=== PATIENT | male | born 1995 | race African-American/Black ===

== ENCOUNTER 2017-07-14 20:08 | Inpatient (IN) | payer MEDICAID, OTHER ==
[~2017-07-14] VITALS: Ht 134.6 cm; Wt 60.0 kg
[2017-07-14] MEDS ORDERED: SODIUM CHLORIDE 0.9% 1L BAG IV* STA (20:10)
[2017-07-14] MEDS ORDERED: ACETAMINOPHEN 650MG/20.3ML CUP PEG STA (20:10)
[2017-07-14] MEDS ORDERED: CEFEPIME 2GM/50 ML (PMX) 50 ML IVPB STA (20:10)
[2017-07-14] MEDS ORDERED: VANCOMYCIN 1 GM (PMX) 250 ML IVPB ONE (20:30)
[2017-07-14 20:55] VITALS: Ht 134.6 cm; Wt 60.0 kg
--- NOTE | 2017-07-14 21:32 | ERD ---
ER Documentation Chief Complaint Chief Complaint c/o SB and fever HPI This is a 22-year-old male with a history of chronic encephalopathy, chronic respiratory failure with a trach who presents from halfway facility. The reason that he was transferred is because the halfway facility states that when they usually suctioned the patient he has a desaturation. However, today when a suction and he did not have any desaturation. For this reason they became concerned and sent the patient to the emergency room. Further history is very limited. Patient is nonverbal. ROS Patient nonverbal PMhx/Soc As noted in HPI Medical and Surgical Hx: Unable to obtain Hx Alcohol Use: No Hx Substance Use: No Hx Tobacco Use: No Smoking Status: Never smoker FmHx Family History: No diabetes Physical Exam Vitals Vital Signs Date Time Temp Pulse Resp B/P Pulse Ox O2 Delivery O2 Flow Rate FiO2 07/14/17 21:55 97 20 112/64 99 Trach Collar 07/14/17 20:55 97.8 65 20 112/65 100 07/14/17 20:53 10 Physical Exam General: No significant distress, obvious secretions from trach Head: Normocephalic, atraumatic. Eyes: Pupils equally reactive, EOM intact ENT: Moist mucous membranes Neck: Supple, no lymphadenopathy, secretions from trach Respiratory: Rhonchorous, no distress Cardiovascular: RRR, no murmurs, rubs, or gallops Abdominal: Soft, non-tender, non-distended, no peritoneal signs of a G-tube in position : Deferred MSK: Limited movement of all 4 extremities, no bony abnormalities Neurologic: Limited exam, and encephalopathic, limited movement of all 4 extremities Skin: No rash, no significant breakdown Psych: Unable to assess Result Diagram: 07/14/17201907/14/172019 Results 24 hrs Laboratory Tests Test 07/14/17 20:20 07/14/17 21:24 White Blood Count 6.010^3/ul Red Blood Count 5.6010^6/ul Hemoglobin 14.5g/dl Hematocrit 49.3% Mean Corpuscular Volume 88.0fl Mean Corpuscular Hemoglobin 25.9pg Mean Corpuscular Hemoglobin Concent 29.4g/dl Red Cell Distribution Width 15.3% Platelet Count 22871^3/UL Mean Platelet Volume 12.5fl Neutrophils % 29.9% Lymphocytes % 52.5% Monocytes % 13.5% Eosinophils % 3.2% Basophils % 0.7% Nucleated Red Blood Cells % 0.0/100WBC Neutrophils # 1.810^3/ul Lymphocytes # 3.210^3/ul Monocytes # 0.810^3/ul Eosinophils # 0.210^3/ul Basophils # 0.010^3/ul Nucleated Red Blood Cells # 0.010^3/ul Prothrombin Time 14.1Sec Prothrombin Time Ratio 1.1 INR International Normalized Ratio 1.09 Activated Partial Thromboplast Time 30.7Sec Sodium Level 150mmol/L Potassium Level 5.1mmol/L Chloride Level 106mmol/L Carbon Dioxide Level 30mmol/L Anion Gap 19 Blood Urea Nitrogen 17mg/dl Creatinine 0.52mg/dl Glucose Level 82mg/dl Lactic Acid Level 1.6mmol/L Calcium Level 9.3mg/dl Total Bilirubin 0.3mg/dl Direct Bilirubin 0.00mg/dl Indirect Bilirubin 0.3mg/dl Aspartate Amino Transf (AST/SGOT) 40IU/L Alanine Aminotransferase (ALT/SGPT) 45IU/L Alkaline Phosphatase 82IU/L Troponin I < 0.012ng/ml Total Protein 7.9g/dl Albumin 4.3g/dl Globulin 3.60g/dl Albumin/Globulin Ratio 1.19 Blood Gas Specimen Source Blood arterial Arterial Blood Date Drawn 07/14/2017 9:34:21 PM Arterial Blood pH (Temp corrected) 7.284 Arterial Blood pCO2 (Temp correct) 60.6mmhg Arterial Blood pO2 (Temp corrected) 160.2mmHG Arterial Blood HCO3 28.1mmol/L Arterial Blood Base Excess 0mmol/L Arterial Blood Oxygen Saturation 98.8mmHG Thuan Test ACCEPTAB Arterial Blood Gas Puncture Site Right Radial Arterial Blood Carboxyhemoglobin 0.3% Arterial Blood Methemoglobin 0.5% Blood Gas A-a O2 Differential 55.3mmHg Oxyhemoglobin Percent 98.0% Total Hemoglobin 14.5g/dl Blood Gas Temperature 37.0C Blood Gas Modality TRACH COLLAR FiO2 40.0% Blood Gas Critical Value Read Back Janina ASH Blood Gas Notified Whom BR Blood Gas Notified Time 07/14/2017 9:37:55 PM Current Medications Medications (Trade) Dose Ordered Sig/Dona Route PRN Reason Start Time Stop Time Status Last Admin Dose Admin Sodium Chloride (NS) 2,170 ml BOLUS OVER 2 HOURS STAT IV* 07/14/17 20:10 07/14/17 20:13 DC 07/14/17 21:07 Acetaminophen 650 mg 650 mg ONCE STAT PEG 07/14/17 20:10 07/14/17 20:13 DC Cefepime HCl 50 ml @ 100 mls/hr ONCE STAT IVPB 07/14/17 20:10 07/14/17 20:39 DC 07/14/17 21:07 Vancomycin HCl (Vancocin) 250 ml @ 125 mls/hr ONCE ONCE IVPB 07/14/17 20:30 07/14/17 22:29 07/14/17 20:30 Ondansetron HCl (Zofran Inj) 4 mg ER BRIDGE PRN IV NAUSEA AND/OR VOMITING 07/14/17 22:00 07/15/17 21:59 Acetaminophen (Tylenol Tab) 650 mg ER BRIDGE PRN PO MILD PAIN/FEVER 07/14/17 22:00 07/15/17 21:59 Procedures/MDM EKG, MONITORS, & DIAGNOSTIC IMAGING: EKG: I reviewed and interpreted a 12-lead EKG. Rhythm: Normal sinus rhythm Ectopy: None Intervals: No abnormalities ST segments: No elevations or depressions T waves: No contiguous inversions Chest x-ray: I reviewed and interpreted a 1 view of the chest Mediastinum: No enlargement Cardiac silhouette: No cardiomegaly Airspace: Interstitial process right greater than left concerning for pneumonia , trach in good position Bones: No evidence of fracture Procedure: Peripheral IV Insertion: Indication: Difficult IV access Location: Left upper extremity Attempts: 1 Angiocath-type: 18 Sterile procedure was used to insert a peripheral IV. Indication, location and Angiocath-type are noted above. Ultrasound guidance was used to assist in the insertion of the Angiocath. Return of dark nonpulsatile blood was obtained, normal saline flushed through the Angiocath which was then secured to the skin. The patient tolerated the procedure well without complications. Emergency Bedside Ultrasound: Indication: Peripheral IV insertion Probe Type: Linear Findings: Dynamic ultrasound utilized with compression technique with both linear and horizontal views. The patient tolerated the procedure well and there were no complications. Tracheostomy change: Indication is the fact that the patient requires ventilator and has an uncuffed trach. The family was consented prior to procedure. A sterile procedure was observed. The bougie I was able to thread the bougie through the present trach. The trach was removed intact and a new trach was inserted over the bougie however using a 6.0 Shiley we were unable to pass the trach through the stoma. The procedure was aborted and the prior 6.0 Bivona was replaced without difficulty. The patient had no desaturations, small amount of bleeding that resolved without intervention. LAB INTERPRETATION: No significant leukocytosis and normal lactic acid, hypercarbia on ABG concerning for respiratory acidosis. Hypernatremia MEDICAL DECISION MAKING: The patient presents for evaluation after he did not desaturate after suctioning. It is unclear what exactly was transferred however the patient does have significant secretions from his trach that will require suctioning and close evaluation. The patient is obviously at significant risk for healthcare associated pneumonia and will require sepsis screening and reevaluation. I will attempt an ABG. ER COURSE: Shortly after suctioning the patient has been resting comfortably without evidence of vital sign abnormality or desaturation. However, the patient does have evidence of possible pneumonia on chest x-ray. The patient is slight hypercapnia. I believe close observation and inpatient hospitalization would be appropriate. The patient was given 30 cc/kg bolus of saline, blood cultures were taken and the patient was given vancomycin and cefepime. Based on the patient's arterial blood gas the patient appears to be retaining and has evidence of respiratory acidosis. For this reason the patient be placed on a ventilator. The patient requires changing of his trach given that it is uncuffed.. We were unable to replace the patient's uncuffed trach. The respiratory therapist are looking for the appropriate sized trach however at this point we will attempt ventilation despite coffless trach, further eval by pulm/ent may be necessary during hospitalization. No indication for endotracheal intubation. He is still stable for telemetry. Hyponatremia suggestive of mild dehydration. I kept the patient and/or family informed of laboratory and diagnostic imaging results throughout the emergency room course. DISPOSITION PLAN: Telemetry admission CONSULTATION: Accepting care team and consultations: I discussed the current laboratory data, diagnostic imaging and emergency care provided. Admitting team: Dr. Judd Admitting team indication: Insurance directed Departure Diagnosis: Primary Impression: Healthcare-associated pneumonia Additional Impressions: Chronic respiratory failure Respiratory failure complication: unspecified whether with hypoxia or hypercapnia Qualified Code: J96.10 - Chronic respiratory failure, unspecified whether with hypoxia or hypercapnia Encephalopathy chronic Hypernatremia Condition: Stable SHARON ASH MD Jul 14, 2017 21:32
--- NOTE | 2017-07-14 21:33 | RADRPT ---
PROCEDURE: XR Chest. CLINICAL INDICATION: Possible sepsis. TECHNIQUE: Single frontal view of the chest. COMPARISON: None. FINDINGS: Tracheostomy tube at midline. Cardiomegaly. Left mid lung and lung base atelectasis versus airspace disease. The lungs are otherwi se clear. No signs of pleural fluid or pneumothorax are seen. The osseous structures and soft tissue s are unremarkable. IMPRESSION: Left mid lung and lung base atelectasis versus airspace disease. RPTAT: [facility] Physician Shauna Date Time Electronically viewed and signed by Physician Shauna on 07/14/2017 21:32 RS/
[2017-07-14] MEDS ORDERED: ACETAMINOPHEN 325 MG TAB PO PRN (22:00)
[2017-07-14] MEDS ORDERED: ONDANSETRON 4 MG INJ IV PRN (22:00)
[2017-07-14] MEDS ORDERED: PROPOFOL 100 ML IV STA (22:09)
[2017-07-14] MEDS ORDERED: MIDAZOLAM 1 MG/ML 2 ML INJ IV ONE (22:30)
[2017-07-14] MEDS ORDERED: ALBUTEROL/IPRATROPIUM (NEB) 3 ML AMP ONE (22:36)
--- NOTE | 2017-07-14 23:06 | RADRPT ---
PROCEDURE: XR Chest. CLINICAL INDICATION: Tracheostomy change. TECHNIQUE: AP view of the chest was obtained. COMPARISON: 07/14/2017 FINDINGS: The cardiomediastinal silhouette is within normal limits. There is a tracheostomy tube in place. The lungs are again poorly expanded with expected bibasilar subsegmental atelectasis. No focal consolid ation is seen. No signs of pleural fluid or pneumothorax are seen. The osseous structures and soft t issues are unremarkable. IMPRESSION: 1. No evidence for active cardiopulmonary disease. 2. Interval change of tracheostomy. 3. Stable poor lung expansion with expected bibasilar subsegmental atelectasis. No focal consolidat ion is seen. RPTAT: [facility]AS .Walter Rea MD, Date Time Electronically viewed and signed by .Walter Rea MD, on 07/14/2017 23:06 .S/
[2017-07-14] MEDS ORDERED: ALBUTEROL/IPRATROPIUM (NEB) 3 ML AMP HHN STA (23:15)
[2017-07-15] VITALS (25 sets, daily range): BP systolic 77–117; BP diastolic 34–61; PULSE 45–100; RESP 16–24; TEMP 99
[2017-07-15] MEDS ORDERED: ACETAMINOPHEN 325 MG TAB PO PRN (06:00)
[2017-07-15] MEDS ORDERED: NACL 0.9% 3 ML SYG IV SCH (06:00)
[2017-07-15] MEDS ORDERED: ONDANSETRON 4 MG INJ IV PRN (06:00)
--- NOTE | 2017-07-15 07:16 | HP ---
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 patient has been bleeding through his tracheostomy since tube was replaced. PLAN -Oxygen saturation now has normalized since his trach tube was replaced in the ER, however about 200 cc of blood has been suctioned through his trach over the past 7 hours or so. -He will be admitted for close observation. Will place pulmonary consult. If bleeding continues, will place surgical consult and obtain additional imaging -Continue frequent suctioning -Continue vent support -D5W for correction of hypernatremia HPI/ROS Admit Date/Time Admit Date/Time Hx of Present Illness This is a 21-year-old male with history of chronic encephalopathy, chronic trach /vent dependent respiratory failure who was sent from a long term facility for hypoxia. Information is obtained from the mother who was at the bedside and from the ER physician and chart review. When he presented to the ER, his trach tube was replaced with normalization of oxygen saturation. He has however been bleeding through his trach since his tracheostomy tube was replaced. He had about a 200 cc of blood that was suctioned over a period of 7 hours. According to his mother, he fell down when he was 4 years old and since then has been in a chronic vegetative state and has been trach/vent dependent. Chest x-ray showed left lower lung atelectasis versus airspace disease. PMH/Family/Social Social History Smoking Status: Never smoker Exam/Review of Systems Vital Signs Vitals Vital Signs Date Time Temp Pulse Resp B/P Pulse Ox O2 Delivery O2 Flow Rate FiO2 07/15/17 05:28 61 18 98 40 07/15/17 04:31 98.2 98/45 Mechanical Ventilator 07/14/17 20:53 10 Exam Constitutional: non-verbal, other (Trach to vent. In a chronic vegetative state) Head: atraumatic, normocephalic Neck: other (Trach tube with bleed when suctioned) Respiratory: diminished breath sounds Cardiovascular: nl pulses, regular rate and rhythm Gastrointestinal: other, soft Musculoskeletal: other (Deformity with contracture of extremities) Labs Result Diagram: 07/14/17201907/14/172019 Medications Medications Current Medications Lorazepam (Ativan) 0.5 mg Q6H PRN IV ANXIETY; Start 07/15/17 at 06:00; Status UNV Ondansetron HCl (Zofran Inj) 4 mg Q6H PRN IV NAUSEA AND/OR VOMITING; Start at 06:00; Status UNV Acetaminophen (Tylenol Tab) 650 mg Q6H PRN PO PAIN LEVEL 1-3 OR FEVER; Start 07/15/17 at 06:00; Status UNV Morphine Sulfate (morphine) 2 mg Q4H PRN IV PAIN LEVEL 7-10; Start 07/15/17 at 06:00; Status UNV Famotidine (Pepcid Iv) 20 mg Q12 IV ; Start 07/15/17 at 09:00; Status UNV Heparin Sodium (Porcine) (Heparin (5000 Units/0.5 ml)) 5,000 unit Q12 SC ; Start 07/15/17 at 09:00; Status UNV LIBRA GARCIA MD Jul 15, 2017 07:16
[2017-07-15] MEDS: DEXTROSE 5% 1,000 ML IV SCH ×2 (08:07→18:10)
[2017-07-15] MEDS: FAMOTIDINE 20 MG INJ IV SCH ×3 (08:24→22:23)
[2017-07-15] MEDS ORDERED: ESOM20CA GTB (08:55)
[2017-07-15] MEDS ORDERED: FOLI1TAB7 GTB (08:55)
[2017-07-15] MEDS ORDERED: VLP250480 GTB (08:56)
[2017-07-15] MEDS ORDERED: ROB1 GTB (08:57)
[2017-07-15] MEDS ORDERED: AMIN30LI GTB (08:58)
[2017-07-15] MEDS ORDERED: HEPARIN 5,000 UNIT/0.5 ML VIAL SC SCH (09:00)
[2017-07-15] MEDS ORDERED: NEO/3.5O BOTH EYES (09:01)
[2017-07-15] MEDS ORDERED: POLY15DR25 BOTH EYES (09:03)
[2017-07-15] MEDS ORDERED: POLY17PO6 PO (09:03)
[2017-07-15] MEDS ORDERED: DIAZ2TAB3 GTB (09:04)
[2017-07-15] MEDS ORDERED: NASO17 NASAL (09:04)
[2017-07-15] MEDS ORDERED: LACR35O BOTH EYES (09:05)
[2017-07-15] MEDS ORDERED: ERYT500 GTB (09:07)
[2017-07-15] MEDS ORDERED: KEP100S GTB (09:07)
[2017-07-15] MEDS ORDERED: SODI1TAB42 PO (09:08)
[2017-07-15] MEDS ORDERED: BACL10TA GTB (09:09)
[2017-07-15] MEDS ORDERED: CATTTS1 TD (09:10)
[2017-07-15] MEDS ORDERED: MONT10TA21 GTB (09:10)
[2017-07-15] MEDS ORDERED: ERGO2000 GTB (09:11)
--- NOTE | 2017-07-15 13:44 | CONS ---
Date/Time of Note Date/Time of Note DATE: 07/15/17 TIME: 13:39 Assessment/Plan Assessment/Plan Problems: (1) Chronic respiratory failure Status: Acute Comment: Noted. He has had his trach replaced so that he can actually have regular mechanical ventilation. He is presently being ventilated without issue. Pulmonary will be seeing this young man in consultation. From a CCS standpoint admission is fully appropriate and necessary and he is actually in the intensive care unit Qualifiers: Qualified Code: J96.10 - Chronic respiratory failure, unspecified whether with hypoxia or hypercapnia (2) Healthcare-associated pneumonia Status: Acute Comment: He is on treatment and has been cultured. Please note that the family declines for him to have a Cortes catheter or in and out catheter for urine studies. (3) Encephalopathy chronic Status: Acute Comment: Chronic vegetative state noted. Extremely involved family. Consultation Date/Type/Reason Admit Date/Time July 15, 2017 Date of Consultation: Jul 15, 2017 Type of Consultation: CCS Reason for Consultation Under 22-year-old patient admitted to the hospital documentation for CCS need for admission Referring Provider: LIBRA GARCIA MD Hx of Present Illness 21-year-old -[place] male from [facility]. 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 By report this is been present for roughly 17 years. He has a family that is actively involved. He was transported to this facility after some difficulty with increasing respiratory rate and thickening of secretions. He may have had a fall but that is not documented well, prior to presenting to this facility. His tracheostomy needed to be replaced so that he could be ventilated. Subjective hx not possible: pt non-verbal Past Medical History Medical History: other (Chronic vegetative state; tracheostomy status) Past Surgical History Past Surgical Hx: other (Status post tracheostomy) Family History Significant Family History: no pertinent family hx Social History Alcohol Use: none Smoking Status: Never smoker Drug Use: none Exam/Review of Systems Vital Signs Vitals Vital Signs Date Time Temp Pulse Resp B/P Pulse Ox O2 Delivery O2 Flow Rate FiO2 07/15/17 13:00 57 18 99 40 07/15/17 11:08 90/47 Mechanical Ventilator 07/15/17 06:30 99.0 07/14/17 20:53 10 Exam Constitutional: non-verbal Results Nonverbal. Please see admission H&P Result Diagram: 07/15/17 0800 07/15/17 0800 Results 24 hrs Laboratory Tests Test 07/14/17 20:20 07/14/17 21:24 07/14/17 22:50 07/14/17 23:21 White Blood Count 6.0 Red Blood Count 5.60 Hemoglobin 14.5 Hematocrit 49.3 Mean Corpuscular Volume 88.0 Mean Corpuscular Hemoglobin 25.9 L Mean Corpuscular Hemoglobin Concent 29.4 L Red Cell Distribution Width 15.3 H Platelet Count 198 Mean Platelet Volume 12.5 H Neutrophils % 29.9 L Lymphocytes % 52.5 Monocytes % 13.5 H Eosinophils % 3.2 Basophils % 0.7 Nucleated Red Blood Cells % 0.0 Neutrophils # 1.8 Lymphocytes # 3.2 H Monocytes # 0.8 Eosinophils # 0.2 Basophils # 0.0 Nucleated Red Blood Cells # 0.0 Prothrombin Time 14.1 Prothrombin Time Ratio 1.1 INR International Normalized Ratio 1.09 Activated Partial Thromboplast Time 30.7 Sodium Level 150 H Potassium Level 5.1 Chloride Level 106 Carbon Dioxide Level 30 Anion Gap 19 H Blood Urea Nitrogen 17 Creatinine 0.52 L Glucose Level 82 Lactic Acid Level 1.6 1.4 Calcium Level 9.3 Total Bilirubin 0.3 Direct Bilirubin 0.00 Indirect Bilirubin 0.3 Aspartate Amino Transf (AST/SGOT) 40 Alanine Aminotransferase (ALT/SGPT) 45 Alkaline Phosphatase 82 Troponin I < 0.012 Total Protein 7.9 Albumin 4.3 Globulin 3.60 H Albumin/Globulin Ratio 1.19 Blood Gas Specimen Source Blood arterial Blood arterial Arterial Blood Date Drawn 07/14/2017 9:34:21 PM 07/14/2017 11:31:34 PM Arterial Blood pH (Temp corrected) 7.284 *L 7.275 *L Arterial Blood pCO2 (Temp correct) 60.6 H 58.0 H Arterial Blood pO2 (Temp corrected) 160.2 H 97.3 Arterial Blood HCO3 28.1 H 26.3 H Arterial Blood Base Excess 0 -1.7 Arterial Blood Oxygen Saturation 98.8 H 96.9 Thuan Test ACCEPTAB ACCEPTAB Arterial Blood Gas Puncture Site Right Radial Right Radial Arterial Blood Carboxyhemoglobin 0.3 0.3 Arterial Blood Methemoglobin 0.5 0.5 Blood Gas A-a O2 Differential 55.3 H 121.2 H Oxyhemoglobin Percent 98.0 96.1 Total Hemoglobin 14.5 14.9 Blood Gas Temperature 37.0 37.0 Blood Gas Modality TRACH COLLAR VENT - AC FiO2 40.0 40.0 Blood Gas Critical Value Read Back Janina ASH RN Blood Gas Notified Whom BR BYRON Blood Gas Notified Time 07/14/2017 9:37:55 PM 07/14/2017 11:42:28 PM Blood Gas Respiration Rate 15.0 Blood Gas Actual Respiration Rate 18 Blood Gas Tidal Volume 350.0 Blood Gas Low PEEP Setting 5.0 Blood Gas Inspiratory Pressure 35.0 Test 07/15/17 08:00 White Blood Count 6.3 Red Blood Count 4.96 Hemoglobin 13.3 L Hematocrit 43.3 Mean Corpuscular Volume 87.3 Mean Corpuscular Hemoglobin 26.8 L Mean Corpuscular Hemoglobin Concent 30.7 L Red Cell Distribution Width 15.0 H Platelet Count 163 Mean Platelet Volume 12.0 H Neutrophils % 61.6 Lymphocytes % 23.7 Monocytes % 13.2 H Eosinophils % 1.0 Basophils % 0.3 Nucleated Red Blood Cells % 0.0 Neutrophils # 3.9 Lymphocytes # 1.5 Monocytes # 0.8 Eosinophils # 0.1 Basophils # 0.0 Nucleated Red Blood Cells # 0.0 Sodium Level 146 H Potassium Level 4.1 Chloride Level 112 H Carbon Dioxide Level 29 Anion Gap 9 # Blood Urea Nitrogen 13 Creatinine 0.50 L Glucose Level 88 Calcium Level 8.5 Total Bilirubin 0.4 Direct Bilirubin 0.00 Indirect Bilirubin 0.4 Aspartate Amino Transf (AST/SGOT) 33 Alanine Aminotransferase (ALT/SGPT) 40 Alkaline Phosphatase 64 Total Protein 6.6 # Albumin 2.9 #L Globulin 3.70 H Albumin/Globulin Ratio 0.78 Medications Medications Current Medications Lorazepam (Ativan) 0.5 mg Q6H PRN IV ANXIETY; Start 07/15/17 at 06:00 Ondansetron HCl (Zofran Inj) 4 mg Q6H PRN IV NAUSEA AND/OR VOMITING; Start at 06:00 Acetaminophen (Tylenol Tab) 650 mg Q6H PRN PO PAIN LEVEL 1-3 OR FEVER; Start 07/15/17 at 06:00 Morphine Sulfate (morphine) 2 mg Q4H PRN IV PAIN LEVEL 7-10; Start 07/15/17 at 06:00 Famotidine 20 mg 20 mg Q12 IV Last administered on 07/15/17 08:24; Admin Dose 20 MG; Start 07/15/17 at 09:00 Dextrose (D5W) 1,000 ml @ 100 mls/hr Q10H IV Last administered on 07/15/17 08:07; Admin Dose 100 MLS/HR; Start 07/15/17 at 07:30 DUONG CHING MD Jul 15, 2017 13:43
[2017-07-15] MEDS ORDERED: SOD CHLORIDE 0.9% 500 ML IV ONE (14:30)
--- NOTE | 2017-07-15 17:20 | PN ---
Date/Time of Note Date/Time of Note DATE: 07/15/17 TIME: 17:12 Assessment/Plan VTE Prophylaxis VTE Prophylaxis Intervention: SCD's Lines/Catheters IV Catheter Type (from Nrs): Peripheral IV Urinary Cath still in place: No Assessment/Plan Assessment/Plan 1. Acute hypercapnic respiratory failure - Per mother patient was admitted to [facility] 1 month ago for pneumonia and questions why he is presently at [facility] - Currently on ventilator and Pulmonology consulted - ABG shows elevated PCO2 and will recheck in am - continue suctioning 2. Hypernatremia - Most likely secondary to dehydration - improving on D5W 3. Hypotension - SBP 70s this am and improvement after IVF bolus - Will continue to monitor and bolus as needed 4. Failure to thrive - PEG in place and will restart feeds 5. Chronic vegetative state 6. Disposition - Continue monitoring in ICU and will work with CM for transfer to [facility] at families' request >40 minutes of critical care time was spent with patient. Family at bedside and questions answered. All imaging and labs reviewed. Subjective 24 Hr Interval Summary Free Text/Dictation Patient remains on the ventilator. BP was low this am and given fluids which improved his pressure. Mother at bedside and father on phone, both requesting transfer to [facility] given patient was recently admitted there for pneumonia a month ago. Exam/Review of Systems Vital Signs Vitals Vital Signs Date Time Temp Pulse Resp B/P Pulse Ox O2 Delivery O2 Flow Rate FiO2 07/15/17 17:00 55 18 81/39 99 Mechanical Ventilator 07/15/17 16:00 99.4 07/15/17 15:09 40 07/14/17 20:53 10 Exam Constitutional: non-verbal, Trach connected to vent. In a chronic vegetative state. Head: atraumatic, normocephalic Neck: trach in place, no blood appreciated at site of insertion Respiratory: diminished breath sounds, no wheezing Cardiovascular: nl pulses, regular rate and rhythm Gastrointestinal: soft, nondistended, BS present Musculoskeletal: Deformity with contracture of extremities Results Result Diagram: 07/15/17 0800 07/15/17 0800 Results 24 hrs Laboratory Tests Test 07/14/17 20:20 07/14/17 21:24 07/14/17 22:50 07/14/17 23:21 White Blood Count 6.0 Red Blood Count 5.60 Hemoglobin 14.5 Hematocrit 49.3 Mean Corpuscular Volume 88.0 Mean Corpuscular Hemoglobin 25.9 L Mean Corpuscular Hemoglobin Concent 29.4 L Red Cell Distribution Width 15.3 H Platelet Count 198 Mean Platelet Volume 12.5 H Neutrophils % 29.9 L Lymphocytes % 52.5 Monocytes % 13.5 H Eosinophils % 3.2 Basophils % 0.7 Nucleated Red Blood Cells % 0.0 Neutrophils # 1.8 Lymphocytes # 3.2 H Monocytes # 0.8 Eosinophils # 0.2 Basophils # 0.0 Nucleated Red Blood Cells # 0.0 Prothrombin Time 14.1 Prothrombin Time Ratio 1.1 INR International Normalized Ratio 1.09 Activated Partial Thromboplast Time 30.7 Sodium Level 150 H Potassium Level 5.1 Chloride Level 106 Carbon Dioxide Level 30 Anion Gap 19 H Blood Urea Nitrogen 17 Creatinine 0.52 L Glucose Level 82 Lactic Acid Level 1.6 1.4 Calcium Level 9.3 Total Bilirubin 0.3 Direct Bilirubin 0.00 Indirect Bilirubin 0.3 Aspartate Amino Transf (AST/SGOT) 40 Alanine Aminotransferase (ALT/SGPT) 45 Alkaline Phosphatase 82 Troponin I < 0.012 Total Protein 7.9 Albumin 4.3 Globulin 3.60 H Albumin/Globulin Ratio 1.19 Blood Gas Specimen Source Blood arterial Blood arterial Arterial Blood Date Drawn 07/14/2017 9:34:21 PM 07/14/2017 11:31:34 PM Arterial Blood pH (Temp corrected) 7.284 *L 7.275 *L Arterial Blood pCO2 (Temp correct) 60.6 H 58.0 H Arterial Blood pO2 (Temp corrected) 160.2 H 97.3 Arterial Blood HCO3 28.1 H 26.3 H Arterial Blood Base Excess 0 -1.7 Arterial Blood Oxygen Saturation 98.8 H 96.9 Thuan Test ACCEPTAB ACCEPTAB Arterial Blood Gas Puncture Site Right Radial Right Radial Arterial Blood Carboxyhemoglobin 0.3 0.3 Arterial Blood Methemoglobin 0.5 0.5 Blood Gas A-a O2 Differential 55.3 H 121.2 H Oxyhemoglobin Percent 98.0 96.1 Total Hemoglobin 14.5 14.9 Blood Gas Temperature 37.0 37.0 Blood Gas Modality TRACH COLLAR VENT - AC FiO2 40.0 40.0 Blood Gas Critical Value Read Back Janina ASH RN Blood Gas Notified Whom BYRON MATTHEWS Blood Gas Notified Time 07/14/2017 9:37:55 PM 07/14/2017 11:42:28 PM Blood Gas Respiration Rate 15.0 Blood Gas Actual Respiration Rate 18 Blood Gas Tidal Volume 350.0 Blood Gas Low PEEP Setting 5.0 Blood Gas Inspiratory Pressure 35.0 Test 07/15/17 08:00 White Blood Count 6.3 Red Blood Count 4.96 Hemoglobin 13.3 L Hematocrit 43.3 Mean Corpuscular Volume 87.3 Mean Corpuscular Hemoglobin 26.8 L Mean Corpuscular Hemoglobin Concent 30.7 L Red Cell Distribution Width 15.0 H Platelet Count 163 Mean Platelet Volume 12.0 H Neutrophils % 61.6 Lymphocytes % 23.7 Monocytes % 13.2 H Eosinophils % 1.0 Basophils % 0.3 Nucleated Red Blood Cells % 0.0 Neutrophils # 3.9 Lymphocytes # 1.5 Monocytes # 0.8 Eosinophils # 0.1 Basophils # 0.0 Nucleated Red Blood Cells # 0.0 Sodium Level 146 H Potassium Level 4.1 Chloride Level 112 H Carbon Dioxide Level 29 Anion Gap 9 # Blood Urea Nitrogen 13 Creatinine 0.50 L Glucose Level 88 Calcium Level 8.5 Total Bilirubin 0.4 Direct Bilirubin 0.00 Indirect Bilirubin 0.4 Aspartate Amino Transf (AST/SGOT) 33 Alanine Aminotransferase (ALT/SGPT) 40 Alkaline Phosphatase 64 Total Protein 6.6 # Albumin 2.9 #L Globulin 3.70 H Albumin/Globulin Ratio 0.78 Medications Medications Current Medications Lorazepam (Ativan) 0.5 mg Q6H PRN IV ANXIETY; Start 07/15/17 at 06:00 Ondansetron HCl (Zofran Inj) 4 mg Q6H PRN IV NAUSEA AND/OR VOMITING; Start at 06:00 Acetaminophen (Tylenol Tab) 650 mg Q6H PRN PO PAIN LEVEL 1-3 OR FEVER; Start 07/15/17 at 06:00 Morphine Sulfate (morphine) 2 mg Q4H PRN IV PAIN LEVEL 7-10; Start 07/15/17 at 06:00 Famotidine 20 mg 20 mg Q12 IV Last administered on 07/15/17 08:24; Admin Dose 20 MG; Start 07/15/17 at 09:00 Dextrose (D5W) 1,000 ml @ 100 mls/hr Q10H IV Last administered on 07/15/17 08:07; Admin Dose 100 MLS/HR; Start 07/15/17 at 07:30 JIM NANCE MD Jul 15, 2017 17:20
[2017-07-16] VITALS (25 sets, daily range): BP systolic 108–129; BP diastolic 55–71; PULSE 69–196; RESP 18–35
[2017-07-16] MEDS ORDERED: FUROSEMIDE 40 MG INJ IV STA (01:01)
[2017-07-16] MEDS: morphine 2 MG INJ IV PRN ×3 (01:14→19:39)
[2017-07-16] MEDS ORDERED: ACETAMINOPHEN 325 MG TAB PEG PRN (03:00)
[2017-07-16] MEDS: DEXTROSE 5% 1,000 ML IV SCH ×2 (03:30→09:05)
[2017-07-16] MEDS ORDERED: ACETAMINOPHEN 650MG/20.3ML CUP PEG PRN (04:30)
[2017-07-16] MEDS: LORAZEPAM 2 MG INJ IV PRN (04:57)
--- NOTE | 2017-07-16 08:55 | RADRPT ---
PROCEDURE: XR Chest. CLINICAL INDICATION: Fever TECHNIQUE: Single AP portable chest. COMPARISON: 07/14/2017 Chest x-ray FINDINGS: The cardiomediastinal silhouette is within normal limits of size. Again noted is hypoinflation cardi ovascular structures. Increased pulmonary vascularity is noted with bibasilar subsegmental atelectas is left greater than right. No focal consolidation or pleural effusion. Tracheostomy tube in stable position. The lungs are clear without pleural effusion or focal consolidation. No pneumothorax. Th e osseous structures and soft tissues are unremarkable. IMPRESSION: 1. Hypoventilatory changes with prominence of the interstitial markings. No focal consolidation or p leural effusion. Superimposed infectious process cannot be excluded. 2. Stable position of tracheostomy tube . RPTAT:AAJJ Physician Zeynep Date Time Electronically viewed and signed by Physician Zeynep on 07/16/2017 08:55 [place]/
[2017-07-16] MEDS: FAMOTIDINE 20 MG INJ IV SCH (09:00)
--- NOTE | 2017-07-16 11:59 | CONS ---
Date/Time of Note Date/Time of Note DATE: 07/16/17 TIME: 11:56 Assessment/Plan Assessment/Plan Additional Assessment/Plan Chest x-ray was reviewed which is essentially unremarkable. Ventilator setting; AC of 18, tidal volume 350, PEEP of 5, 100% FiO2. Assessment and recommendations; 1. Patient admitted for tracheostomy tube dislodgment with replacement with stable clinical status. 2. Persistent vegetative state due to severe anoxic brain injury. Continue current treatment. FiO2 has been dropped down to 30%. Consultation Date/Type/Reason Admit Date/Time July 15, 2017 Date of Consultation: Jul 16, 2017 Type of Consultation: Pulmonary Reason for Consultation Pulmonary consultation requested for evaluation of chronic respiratory failure. Next History of presenting illness; patient is a 21-year-old male who was admitted yesterday sent over from retirement after tracheostomy tube dislodgment with ensuing hypoxemia. Extremity was replaced in the ER and because of bleeding from the insertion site patient was admitted for closer observation. Patient has a long-standing history of chronic severe anoxic encephalopathy since age 4 and is in a persistent vegetative state since then. History was obtained from medical records. Past medical history; 1. Patient with history of fall at age 4 resulting in severe anoxic brain injury. 2. History of tracheostomy and G-tube placement. Medications; reviewed. Allergies; famotidine. Social history; noncontributory. Family history; patient has a very supportive mother. Review systems; unable to be obtained. General exam; young male, on ventilator via tracheostomy, unresponsive, currently in no distress. Past Medical History Medical History: other (Chronic vegetative state; tracheostomy status) Past Surgical History Past Surgical Hx: other (Status post tracheostomy) Social History Alcohol Use: none Smoking Status: Never smoker Drug Use: none Exam/Review of Systems Vital Signs Vitals Vital Signs Date Time Temp Pulse Resp B/P Pulse Ox O2 Delivery O2 Flow Rate FiO2 07/16/17 11:10 64 18 100 95 07/16/17 07:44 99.7 111/55 07/15/17 18:00 Mechanical Ventilator 07/14/17 20:53 10 Intake and Output 07/15/17 07/15/17 07/16/17 14:59 22:59 06:59 Intake Total 200 ml 360 ml Balance 200 ml 360 ml Exam HEENT exam; supple neck, no JVD. No lymphadenopathy. Midline trachea. No thyromegaly. Tracheostomy in place. There is mild bleeding seen around the insertion site. Patient has fair dentition. Neck Chest exam; clear to auscultation. S1-S2 audible, no murmurs. Regular rhythm. Abdomen exam; soft, G-tube in place. No organomegaly. Bowel sounds audible. Extremity exam; no peripheral edema. There is severe muscle loss involving the entire body with contractures. ONLINE COMMUNICATIONS SPECIALIST exam; patient remains unresponsive. Results Result Diagram: 07/16/17 1017 07/16/17 0802 Results 24 hrs Laboratory Tests Test 07/16/17 04:00 07/16/17 08:00 07/16/17 08:02 07/16/17 10: Urine Color STRAW Urine Clarity CLEAR Urine pH 7.0 Urine Specific [place] 1.005 Urine Ketones NEGATIVE Urine Nitrite NEGATIVE Urine Bilirubin NEGATIVE Urine Urobilinogen NEGATIVE Urine Leukocyte Esterase NEGATIVE Urine Hemoglobin NEGATIVE Urine Glucose NEGATIVE Urine Total Protein NEGATIVE Blood Gas Specimen Source Blood arterial Arterial Blood Date Drawn 07/16/2017 7:50:02 AM Arterial Blood pH (Temp corrected) 7.421 Arterial Blood pCO2 (Temp correct) 39.4 Arterial Blood pO2 (Temp corrected) 413.4 H Arterial Blood HCO3 25.0 Arterial Blood Base Excess 0.7 Arterial Blood Oxygen Saturation 99.5 H Thuan Test ACCEPTAB Arterial Blood Gas Puncture Site Right Radial Arterial Blood Carboxyhemoglobin 0.3 Arterial Blood Methemoglobin 0.5 Blood Gas A-a O2 Differential 260.2 H Oxyhemoglobin Percent 98.7 Total Hemoglobin 14.1 Blood Gas Temperature 37.0 Blood Gas Respiration Rate 18.0 Blood Gas Actual Respiration Rate 23 Blood Gas Modality VENT - AC FiO2 100.0 Blood Gas Tidal Volume 350.0 Blood Gas Low PEEP Setting 5.0 Blood Gas Notified Whom JLD Blood Gas Notified Time 07/16/2017 8:07:07 AM Sodium Level 140 Potassium Level 3.7 Chloride Level 103 Carbon Dioxide Level 28 Anion Gap 13 Blood Urea Nitrogen 7 Creatinine 0.50 L Glucose Level 100 Calcium Level 9.1 Phosphorus Level 4.0 Magnesium Level 1.5 L White Blood Count 10.8 # Red Blood Count 5.16 Hemoglobin 13.9 L Hematocrit 44.4 Mean Corpuscular Volume 86.0 Mean Corpuscular Hemoglobin 26.9 L Mean Corpuscular Hemoglobin Concent 31.3 L Red Cell Distribution Width 14.8 H Platelet Count 174 Mean Platelet Volume 12.8 H Neutrophils % 55.2 Lymphocytes % 28.1 Monocytes % 13.7 H Eosinophils % 2.2 Basophils % 0.6 Nucleated Red Blood Cells % 0.0 Neutrophils # 5.9 Lymphocytes # 3.0 H Monocytes # 1.5 H Eosinophils # 0.2 Basophils # 0.1 Nucleated Red Blood Cells # 0.0 Medications Medications Current Medications Lorazepam (Ativan) 0.5 mg Q6H PRN IV ANXIETY Last administered on 07/16/17 04 :57; Admin Dose 0.5 MG; Start 07/15/17 at 06:00 Ondansetron HCl (Zofran Inj) 4 mg Q6H PRN IV NAUSEA AND/OR VOMITING; Start at 06:00 Morphine Sulfate (morphine) 2 mg Q4H PRN IV PAIN LEVEL 7-10 Last administered on 07/16/17 11:45; Admin Dose 2 MG; Start 07/15/17 at 06:00 Famotidine 20 mg 20 mg Q12 IV Last administered on 07/15/17 08:24; Admin Dose 20 MG; Start 07/15/17 at 09:00; Status Future Hold Dextrose (D5W) 1,000 ml @ 100 mls/hr Q10H IV Last administered on 07/16/17 09:05; Admin Dose 100 MLS/HR; Start 07/15/17 at 07:30 Acetaminophen (Tylenol Liquid) 650 mg Q4 PRN PEG PAIN LEVEL 1-3 OR FEVER Last administered on 07/16/17 04:33; Admin Dose 650 MG; Start 07/16/17 at 04:30 TIO KAUFMAN Jul 16, 2017 11:59
[2017-07-16] MEDS ORDERED: MAGNESIUM SULFATE 2 GM/50 ML 50 ML IVPB ONE (13:00)
--- NOTE | 2017-07-16 15:15 | PN ---
Date/Time of Note Date/Time of Note DATE: 07/16/17 TIME: 15:15 Assessment/Plan VTE Prophylaxis VTE Prophylaxis Intervention: SCD's Lines/Catheters IV Catheter Type (from Nrsg): Peripheral IV Urinary Cath still in place: No Assessment/Plan Assessment/Plan 1. Acute hypercapnic respiratory failure on Vent - Pulmonology on board and weaning down FI02. Will continue monitoring - Trach in proper place per CXR - CM called [facility] and told no beds available and to transfer to [place] which family is refusing. Will continue treating until stable for d/ c vs bed available at [facility]. - ABG shows improvement in PCO2 - continue aggressive suctioning 2. Hypernatremia- resolved - Most likely secondary to dehydration - improving on D5W and will d/c since now back on TF 3. Hypotension- resolved - stable - Will continue to monitor and bolus as needed 4. Failure to thrive - PEG in place and TF running 5. Chronic vegetative state 6. Disposition - Continue weaning off vent Subjective 24 Hr Interval Summary Free Text/Dictation Patient was caleb extremities which mother stated indicates hes in pain. Patient being weaned off FI02 and doing well. No acute overnight events. Still requiring frequent suctioning. Exam/Review of Systems Vital Signs Vitals Vital Signs Date Time Temp Pulse Resp B/P Pulse Ox O2 Delivery O2 Flow Rate FiO2 07/16/17 13:10 59 18 100 95 07/16/17 12:11 98.6 115/66 07/15/17 18:00 Mechanical Ventilator 07/14/17 20:53 10 Intake and Output 07/15/17 07/15/17 07/16/17 15:00 23:00 07:00 Intake Total 200 ml 360 ml 1500 ml Balance 200 ml 360 ml 1500 ml Exam Constitutional: non-verbal, Trach connected to vent. In a chronic vegetative state. Head: atraumatic, normocephalic Neck: trach in place, no blood appreciated at site of insertion Respiratory: diminished breath sounds, no wheezing Cardiovascular: nl pulses, regular rate and rhythm Gastrointestinal: soft, nondistended, BS present Musculoskeletal: Deformity with contracture of extremities Results Result Diagram: 07/16/17 1017 07/16/17 0802 Results 24 hrs Laboratory Tests Test 07/16/17 04:00 07/16/17 08:00 07/16/17 08:02 07/16/17 10:17 Urine Color STRAW Urine Clarity CLEAR Urine pH 7.0 Urine Specific [place] 1.005 Urine Ketones NEGATIVE Urine Nitrite NEGATIVE Urine Bilirubin NEGATIVE Urine Urobilinogen NEGATIVE Urine Leukocyte Esterase NEGATIVE Urine Hemoglobin NEGATIVE Urine Glucose NEGATIVE Urine Total Protein NEGATIVE Blood Gas Specimen Source Blood arterial Arterial Blood Date Drawn 07/16/2017 7:50:02 AM Arterial Blood pH (Temp corrected) 7.421 Arterial Blood pCO2 (Temp correct) 39.4 Arterial Blood pO2 (Temp corrected) 413.4 H Arterial Blood HCO3 25.0 Arterial Blood Base Excess 0.7 Arterial Blood Oxygen Saturation 99.5 H Thuan Test ACCEPTAB Arterial Blood Gas Puncture Site Right Radial Arterial Blood Carboxyhemoglobin 0.3 Arterial Blood Methemoglobin 0.5 Blood Gas A-a O2 Differential 260.2 H Oxyhemoglobin Percent 98.7 Total Hemoglobin 14.1 Blood Gas Temperature 37.0 Blood Gas Respiration Rate 18.0 Blood Gas Actual Respiration Rate 23 Blood Gas Modality VENT - AC FiO2 100.0 Blood Gas Tidal Volume 350.0 Blood Gas Low PEEP Setting 5.0 Blood Gas Notified Whom JLD Blood Gas Notified Time 07/16/2017 8:07:07 AM Sodium Level 140 Potassium Level 3.7 Chloride Level 103 Carbon Dioxide Level 28 Anion Gap 13 Blood Urea Nitrogen 7 Creatinine 0.50 L Glucose Level 100 Calcium Level 9.1 Phosphorus Level 4.0 Magnesium Level 1.5 L White Blood Count 10.8 # Red Blood Count 5.16 Hemoglobin 13.9 L Hematocrit 44.4 Mean Corpuscular Volume 86.0 Mean Corpuscular Hemoglobin 26.9 L Mean Corpuscular Hemoglobin Concent 31.3 L Red Cell Distribution Width 14.8 H Platelet Count 174 Mean Platelet Volume 12.8 H Neutrophils % 55.2 Lymphocytes % 28.1 Monocytes % 13.7 H Eosinophils % 2.2 Basophils % 0.6 Nucleated Red Blood Cells % 0.0 Neutrophils # 5.9 Lymphocytes # 3.0 H Monocytes # 1.5 H Eosinophils # 0.2 Basophils # 0.1 Nucleated Red Blood Cells # 0.0 Medications Medications Current Medications Lorazepam (Ativan) 0.5 mg Q6H PRN IV ANXIETY Last administered on 07/16/17t 04 :57; Admin Dose 0.5 MG; Start 07/15/17 at 06:00 Ondansetron HCl (Zofran Inj) 4 mg Q6H PRN IV NAUSEA AND/OR VOMITING; Start at 06:00 Morphine Sulfate (morphine) 2 mg Q4H PRN IV PAIN LEVEL 7-10 Last administered on 07/16/17 11:45; Admin Dose 2 MG; Start 07/15/17 at 06:00 Famotidine 20 mg 20 mg Q12 IV Last administered on 07/15/17 08:24; Admin Dose 20 MG; Start 07/15/17 at 09:00; Status Future Hold Dextrose (D5W) 1,000 ml @ 100 mls/hr Q10H IV Last administered on 07/16/17 09:05; Admin Dose 100 MLS/HR; Start 07/15/17 at 07:30 Acetaminophen (Tylenol Liquid) 650 mg Q4 PRN PEG PAIN LEVEL 1-3 OR FEVER Last administered on 07/16/17 04:33; Admin Dose 650 MG; Start 07/16/17 at 04:30 JIM NANCE MD Jul 16, 2017 15:15
[2017-07-17] VITALS (26 sets, daily range): BP systolic 97–170; BP diastolic 57–87; PULSE 102–187; RESP 16–36
[2017-07-17] MEDS: morphine 2 MG INJ IV PRN (02:54)
[2017-07-17] MEDS: ALBUTEROL/IPRATROPIUM (NEB) 3 ML AMP HHN PRN ×2 (08:16→20:49)
[2017-07-17] MEDS: LEVETIRACETAM (100 MG/ML PO SYG) GTB SCH ×3 (11:30→22:44)
[2017-07-17] MEDS: GLYCOPYRROLATE 1 MG TAB GTB SCH ×2 (11:30→22:45)
[2017-07-17] MEDS ORDERED: NON-FORMULARY/PATIENT OWN MED (Amino Acids/Protein Hydrolys (Pro-Stat Liquid) 30 ML) GTB SCH (11:30)
[2017-07-17] MEDS ORDERED: POLYETHYLENE GLYCOL 17 GM PACKET PO PRN (11:30)
[2017-07-17] MEDS: CLONIDINE 0.1 MG/24 HR PATCH TRANSDERM SCH (11:30)
--- NOTE | 2017-07-17 11:42 | CONS ---
Date/Time of Note Date/Time of Note DATE: 07/17/17 TIME: 11:39 Assessment/Plan Assessment/Plan Additional Assessment/Plan Ventilator setting; AC of 18, tidal volume 350, PEEP of 5, 40% FiO2. Assessment and recommendations; 1. Patient admitted for tracheostomy dislodgment which was replaced in the emergency room patient has remained hemodynamically stable. No further bleeding from the tracheostomy site. 2. Chronic respiratory failure and persistent vegetative state. Continue current supportive care. [facility] Consultation Date/Type/Reason Admit Date/Time Jul 14, 2017 at 21:38 Initial Consult Date 07/16/17 Type of Consultation: Pulmonary Referring Provider: LIBRA GARCIA MD 24 HR Interval Summary Free Text/Dictation Patient's condition has remained stable. Remains in persistent vegetative state. Has remained hemodynamically stable. General exam; young male, on ventilator via tracheostomy, unresponsive. Currently in no distress. Patient has significant overall growth retardation. Exam/Review of Systems Vital Signs Vitals Vital Signs Date Time Temp Pulse Resp B/P Pulse Ox O2 Delivery O2 Flow Rate FiO2 07/17/17 11:02 101 18 98 40 07/17/17 07:12 99.0 114/66 07/15/17 18:00 Mechanical Ventilator 07/14/17 20:53 10 Intake and Output 07/16/17 07/16/17 07/17/17 14:59 22:59 06:59 Intake Total 1500 ml Balance 1500 ml Exam HEENT exam; supple neck, no JVD. No lymphadenopathy. Midline trachea. No thyromegaly. Tracheostomy in place. No overt bleeding seen. Chest exam; diminished but clear breath sounds. S1-S2 audible, no murmurs. Regular rhythm. Abdomen exam; soft, G-tube in place. Bowel sounds audible. Extremity exam; no peripheral edema. Patient does have contractures involving all 4 extremities. 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 Results Result Diagram: 07/17/1762707/17/17627 Results 24 hrs Laboratory Tests Test 07/17/17 06:28 07/17/17 09:27 White Blood Count 7.7 # Red Blood Count 5.34 Hemoglobin 13.8 L Hematocrit 45.2 Mean Corpuscular Volume 84.6 Mean Corpuscular Hemoglobin 25.8 L Mean Corpuscular Hemoglobin Concent 30.5 L Red Cell Distribution Width 14.9 H Platelet Count 175 Mean Platelet Volume 12.6 H Neutrophils % 60.3 Lymphocytes % 23.3 Monocytes % 12.8 Eosinophils % 3.0 Basophils % 0.5 Nucleated Red Blood Cells % 0.0 Neutrophils # 4.6 Lymphocytes # 1.8 Monocytes # 1.0 H Eosinophils # 0.2 Basophils # 0.0 Nucleated Red Blood Cells # 0.0 Sodium Level 144 Potassium Level 3.6 Chloride Level 102 Carbon Dioxide Level 30 Anion Gap 16 Blood Urea Nitrogen 7 Creatinine 0.49 L Glucose Level 95 Calcium Level 8.9 Phosphorus Level 4.2 Magnesium Level 2.0 Albumin 3.9 # Lab Scanned Report LAB Medications Medications Current Medications Lorazepam (Ativan) 0.5 mg Q6H PRN IV ANXIETY Last administered on 07/16/17 04 :57; Admin Dose 0.5 MG; Start 07/15/17 at 06:00 Ondansetron HCl (Zofran Inj) 4 mg Q6H PRN IV NAUSEA AND/OR VOMITING; Start at 06:00 Morphine Sulfate (morphine) 2 mg Q4H PRN IV PAIN LEVEL 7-10 Last administered on 07/17/17 02:54; Admin Dose 2 MG; Start 07/15/17 at 06:00 Famotidine (Pepcid Iv) 20 mg Q12 IV Last administered on 07/15/17 08:24; Admin Dose 20 MG; Start 07/15/17 at 09:00; Status Future Hold Acetaminophen (Tylenol Liquid) 650 mg Q4 PRN PEG PAIN LEVEL 1-3 OR FEVER Last administered on 07/16/17 04:33; Admin Dose 650 MG; Start 07/16/17 at 04:30 TIO KAUFMAN Jul 17, 2017 11:42
[2017-07-17] MEDS: DIAZEPAM 2 MG TAB GTB SCH ×2 (12:00→17:22)
--- NOTE | 2017-07-17 12:48 | PN ---
Date/Time of Note Date/Time of Note DATE: 07/17/17 TIME: 12:48 Assessment/Plan VTE Prophylaxis VTE Prophylaxis Intervention: SCD's Lines/Catheters IV Catheter Type (from Nrs): Peripheral IV Urinary Cath still in place: No Assessment/Plan Assessment/Plan 1. Acute hypercapnic respiratory failure on Vent - Pulmonology on board and weaning down FI02. Will continue monitoring - Trach in proper place per CXR - Per Pulmonology, patient stable and can continue on vent at [facility] - continue aggressive suctioning 2. Hypernatremia- resolved - Most likely secondary to dehydration 3. Hypotension- resolved - stable - Will continue to monitor and bolus as needed 4. Failure to thrive - PEG in place and TF running 5. Chronic vegetative state 6. Disposition - Will discuss with family and CM about discharge back to SNF while still on vent - Condition remains stable Subjective 24 Hr Interval Summary Free Text/Dictation Patient appearing more comfortably today and no acute issues. Per nursing staff , mother disconnected patient from vent to suction and was informed by charge nurse and SW she is not allowed to do that without informing staff. Home medications resumed. [facility] and mother refusing [facility] transfer Exam/Review of Systems Vital Signs Vitals Vital Signs Date Time Temp Pulse Resp B/P Pulse Ox O2 Delivery O2 Flow Rate FiO2 07/17/17 12:11 97.6 75 20 170/87 95 07/17/17 11:02 40 07/15/17 18:00 Mechanical Ventilator 07/14/17 20:53 10 Exam Constitutional: non-verbal, Trach connected to vent. In a chronic vegetative state. Head: atraumatic, normocephalic Neck: trach in place, no blood appreciated at site of insertion Respiratory: diminished breath sounds, no wheezing Cardiovascular: nl pulses, regular rate and rhythm Gastrointestinal: soft, nondistended, BS present Musculoskeletal: Deformity with contracture of extremities Results Result Diagram: 07/17/1762707/17/17627 Results 24 hrs Laboratory Tests Test 07/17/17 06:28 07/17/17 09:27 White Blood Count 7.7 # Red Blood Count 5.34 Hemoglobin 13.8 L Hematocrit 45.2 Mean Corpuscular Volume 84.6 Mean Corpuscular Hemoglobin 25.8 L Mean Corpuscular Hemoglobin Concent 30.5 L Red Cell Distribution Width 14.9 H Platelet Count 175 Mean Platelet Volume 12.6 H Neutrophils % 60.3 Lymphocytes % 23.3 Monocytes % 12.8 Eosinophils % 3.0 Basophils % 0.5 Nucleated Red Blood Cells % 0.0 Neutrophils # 4.6 Lymphocytes # 1.8 Monocytes # 1.0 H Eosinophils # 0.2 Basophils # 0.0 Nucleated Red Blood Cells # 0.0 Sodium Level 144 Potassium Level 3.6 Chloride Level 102 Carbon Dioxide Level 30 Anion Gap 16 Blood Urea Nitrogen 7 Creatinine 0.49 L Glucose Level 95 Calcium Level 8.9 Phosphorus Level 4.2 Magnesium Level 2.0 Albumin 3.9 # Lab Scanned Report LAB Medications Medications Current Medications Lorazepam (Ativan) 0.5 mg Q6H PRN IV ANXIETY Last administered on 07/16/17 04 :57; Admin Dose 0.5 MG; Start 07/15/17 at 06:00 Ondansetron HCl (Zofran Inj) 4 mg Q6H PRN IV NAUSEA AND/OR VOMITING; Start at 06:00 Morphine Sulfate (morphine) 2 mg Q4H PRN IV PAIN LEVEL 7-10 Last administered on 07/17/17 02:54; Admin Dose 2 MG; Start 07/15/17 at 06:00 Famotidine (Pepcid Iv) 20 mg Q12 IV Last administered on 07/15/17 08:24; Admin Dose 20 MG; Start 07/15/17 at 09:00; Status Future Hold Acetaminophen (Tylenol Liquid) 650 mg Q4 PRN PEG PAIN LEVEL 1-3 OR FEVER Last administered on 07/16/17 04:33; Admin Dose 650 MG; Start 07/16/17 at 04:30 Baclofen (Lioresal) 25 mg Q6 GTB ; Start 07/17/17 at 12:00; Status UNV Clonidine HCl (Catapres-Tts 1 Patch) 1 patch Q7D TRANSDERM ; Start 07/17/17 at 11:30; Status UNV Diazepam (Valium) 3 mg Q6 GTB ; Start 07/17/17 at 12:00; Status UNV Erythromycin (Erythromycin Base (Ec)) 120 mg Q6 PO ; Start 07/17/17 at 12:00; Status UNV Glycopyrrolate (Robinul) 0.25 mg BID GTB ; Start 07/17/17 at 11:30; Status UNV Levetiracetam (Keppra Liq (Ped)) 1,750 mg BID GTB ; Start 07/17/17 at 11:30; Status UNV Montelukast Sodium (Singulair) 10 mg QHS GTB ; Start 07/17/17 at 21:00 Neomycin/ Polymyxin/ Dexamethasone (Maxitrol Oph Oint) 1 drop QPM BOTH EYES ; Start 07/17/17 at 21:00; Status UNV Polyethylene Glycol (Miralax) 17 gm DAILY PRN PO CONSTIPATION; Start 07/17/17 at 11:30 Eye Lubricant (Artificial Tears Oph) 1 drop PRN PRN BOTH EYES DRY EYES; Start 07/17/17 at 11:30 Valproate Sodium (Depakene Liquid Cup) 250 mg TID GTB ; Start 07/17/17 at 13:00 Miscellaneous Information 30 ml DAILY GTB ; Start 07/17/17 at 11:30; Status UNV Miscellaneous Information 2,000 unit DAILY GTB ; Start 07/17/17 at 11:30; Status UNV Miscellaneous Information 20 mg BID GTB ; Start 07/17/17 at 11:30; Status UNV Miscellaneous Information 1 each DAILY GTB ; Start 07/17/17 at 11:30; Status UNV Eye Lubricant (Akwa Oint) 1 applic Q4H BOTH EYES ; Start 07/17/17 at 13:00; Status UNV Miscellaneous Information 1 spray DAILY NASAL ; Start 07/17/17 at 11:30; Status UNV JIM NANCE MD Jul 17, 2017 12:48
[2017-07-17] MEDS: VALPROIC ACID LIQUID CUP 250 MG/5 ML CUP GTB SCH ×2 (12:56→22:44)
[2017-07-17] MEDS: OCULAR LUBRICANT 3.5 GM OPH OINT BOTH EYES SCH ×3 (13:00→22:44)
[2017-07-17] MEDS: [UNRECOGNIZED DRUG - REMARK] XX SCH ×2 (14:29→22:45)
[2017-07-17] MEDS: BACLOFEN 10 MG TAB GTB SCH ×2 (14:35→17:22)
[2017-07-17] MEDS: LORAZEPAM 2 MG INJ IV PRN (14:48)
[2017-07-17] MEDS: ERYTHROMYCIN ETHYL SUCC (80 MG/ML PO SYG) GTB SCH (17:23)
[2017-07-17] MEDS: ARTIFICIAL TEARS 15 ML OPH BOTH EYES PRN (22:44)
[2017-07-17] MEDS: MONTELUKAST 10 MG TAB GTB SCH (22:44)
[2017-07-17] MEDS: NEOMYC/POLYMYX/DEXAM 3.5GM OPH OINT BOTH EYES SCH (22:44)
[2017-07-18] VITALS (21 sets, daily range): BP systolic 105–115; BP diastolic 56–68; PULSE 62–96; RESP 17–19
[2017-07-18] MEDS: OCULAR LUBRICANT 3.5 GM OPH OINT BOTH EYES SCH ×6 (01:00→21:08)
[2017-07-18] MEDS: ALBUTEROL/IPRATROPIUM (NEB) 3 ML AMP HHN PRN ×2 (01:09→19:41)
[2017-07-18] MEDS: ERYTHROMYCIN ETHYL SUCC (80 MG/ML PO SYG) GTB SCH ×4 (01:28→17:15)
[2017-07-18] MEDS: BACLOFEN 10 MG TAB GTB SCH ×4 (01:28→17:15)
[2017-07-18] MEDS: DIAZEPAM 2 MG TAB GTB SCH ×4 (01:29→17:15)
[2017-07-18] MEDS: [UNRECOGNIZED DRUG - REMARK] XX SCH ×3 (06:30→21:24)
[2017-07-18] MEDS: LANSOPRAZOLE 30 MG CAP GTB SCH (06:36)
[2017-07-18] MEDS: GLYCOPYRROLATE 1 MG TAB GTB SCH ×2 (08:35→21:08)
[2017-07-18] MEDS: MULTIVITAMINS 30 ML CUP GTB SCH (08:35)
[2017-07-18] MEDS: LEVETIRACETAM (100 MG/ML PO SYG) GTB SCH ×2 (08:35→21:09)
[2017-07-18] MEDS: FLUTICASONE 0.05% 16 GM NAS SPRAY NASAL SCH (08:36)
[2017-07-18] MEDS: CHOLECALCIFEROL 1,000 UNIT TAB GTB SCH (08:36)
[2017-07-18] MEDS: VALPROIC ACID LIQUID CUP 250 MG/5 ML CUP GTB SCH ×3 (08:36→21:08)
[2017-07-18] MEDS: CLONIDINE 0.1 MG/24 HR PATCH TRANSDERM SCH (08:38)
--- NOTE | 2017-07-18 11:57 | CONS ---
Date/Time of Note Date/Time of Note DATE: 07/18/17 TIME: 11:56 Consultation Date/Type/Reason Admit Date/Time Jul 14, 2017 at 21:38 Initial Consult Date 07/16/17 Type of Consultation: Pulmonary Referring Provider: LIBRA GARCIA MD 24 HR Interval Summary Free Text/Dictation Patient's condition is stable. Has remained hemodynamically stable. General exam; young male, on ventilator via tracheostomy, awake but unresponsive , currently in no distress. HEENT exam; supple neck, tracheostomy in place. Chest exam; clear to auscultation. S1-S2 audible, no murmurs. Regular rhythm. Abdomen exam; soft, G-tube in place. Bowel sounds audible. Extremity exam; no peripheral edema. [employer] exam; patient remains awake but unresponsive. Ventilator setting; assist control of 18, tidal volume 350, PEEP of 5, 35% FiO2. Assessment and recommendations; 1. Patient with history of severe chronic severe anoxic encephalopathy admitted for tracheostomy dislodgment which was replaced in the ER, patient has exhibited stable respiratory status. Consider [facility]. Exam/Review of Systems Vital Signs Vitals Vital Signs Date Time Temp Pulse Resp B/P Pulse Ox O2 Delivery O2 Flow Rate FiO2 07/18/17 11:38 99.2 84 17 115/65 96 07/18/17 08:00 40 07/15/17 18:00 Mechanical Ventilator 07/14/17 20:53 10 Intake and Output 07/17/17 07/17/17 07/18/17 15:00 23:00 07:00 Intake Total 1080 ml 750 ml Output Total 400 ml 500 ml Balance 680 ml 250 ml Results Result Diagram: 07/18/17 0613 07/18/17 0613 Results 24 hrs Laboratory Tests Test 07/18/17 06:13 White Blood Count 6.7 Red Blood Count 5.33 Hemoglobin 14.3 Hematocrit 45.6 Mean Corpuscular Volume 85.6 Mean Corpuscular Hemoglobin 26.8 L Mean Corpuscular Hemoglobin Concent 31.4 L Red Cell Distribution Width 14.9 H Platelet Count 203 Mean Platelet Volume 12.4 H Neutrophils % 43.8 Lymphocytes % 34.1 Monocytes % 16.2 H Eosinophils % 5.1 Basophils % 0.7 Nucleated Red Blood Cells % 0.0 Neutrophils # 2.9 Lymphocytes # 2.3 Monocytes # 1.1 H Eosinophils # 0.3 Basophils # 0.1 Nucleated Red Blood Cells # 0.0 Sodium Level 143 Potassium Level 3.8 Chloride Level 104 Carbon Dioxide Level 29 Anion Gap 14 Blood Urea Nitrogen 13 Creatinine 0.52 L Glucose Level 96 Calcium Level 9.5 Phosphorus Level 4.8 Magnesium Level 1.9 Albumin 3.7 Medications Medications Current Medications Lorazepam (Ativan) 0.5 mg Q6H PRN IV ANXIETY Last administered on 07/17/17 14: 48; Admin Dose 0.5 MG; Start 07/15/17 at 06:00 Ondansetron HCl (Zofran Inj) 4 mg Q6H PRN IV NAUSEA AND/OR VOMITING; Start at 06:00 Morphine Sulfate (morphine) 2 mg Q4H PRN IV PAIN LEVEL 7-10 Last administered on 07/17/17 02:54; Admin Dose 2 MG; Start 07/15/17 at 06:00 Famotidine (Pepcid Iv) 20 mg Q12 IV Last administered on 07/15/17 08:24; Admin Dose 20 MG; Start 07/15/17 at 09:00; Status Future Hold Acetaminophen (Tylenol Liquid) 650 mg Q4 PRN PEG PAIN LEVEL 1-3 OR FEVER Last administered on 07/16/17 04:33; Admin Dose 650 MG; Start 07/16/17 at 04:30 Baclofen (Lioresal) 25 mg Q6 GTB Last administered on 07/18/17 06:36; Admin Dose 25 MG; Start 07/17/17 at 12:00 Clonidine HCl (Catapres-Tts 1 Patch) 1 patch Q7D TRANSDERM Last administered on 07/18/17 08:38; Admin Dose 1 PATCH; Start 07/17/17 at 11:30 Diazepam (Valium) 3 mg Q6 GTB Last administered on 07/18/17 06:36; Admin Dose 3 MG; Start 07/17/17 at 12:00 Erythromycin Ethylsuccinate (E.e.s (Ped)) 120 mg Q6 GTB Last administered on 06:36; Admin Dose 120 MG; Start 07/17/17 at 18:00 Glycopyrrolate (Robinul) 0.25 mg BID GTB Last administered on 07/18/17 08:35; Admin Dose 0.25 MG; Start 07/17/17 at 11:30 Levetiracetam (Keppra Liq (Ped)) 1,750 mg BID GTB Last administered on 08:35; Admin Dose 1,750 MG; Start 07/17/17 at 11:30 Montelukast Sodium (Singulair) 10 mg QHS GTB Last administered on 07/17/17 22: 44; Admin Dose 10 MG; Start 07/17/17 at 21:00 Neomycin/ Polymyxin/ Dexamethasone (Maxitrol Oph Oint) 1 applic QPM BOTH EYES Last administered on 07/17/17 22:44; Admin Dose 1 APPLIC; Start 07/17/17 at 21: 00 Polyethylene Glycol (Miralax) 17 gm DAILY PRN PO CONSTIPATION; Start 07/17/17 at 11:30 Eye Lubricant (Artificial Tears Oph) 1 drop PRN PRN BOTH EYES DRY EYES Last administered on 07/17/17 22:44; Admin Dose 1 DROP; Start 07/17/17 at 11:30 Valproate Sodium (Depakene Liquid Cup) 250 mg TID GTB Last administered on 07/18 08:36; Admin Dose 250 MG; Start 07/17/17 at 13:00 Cholecalciferol (Vitamin D) 2,000 unit DAILY GTB Last administered on 08:36; Admin Dose 2,000 UNIT; Start 07/18/17 at 09:00 Lansoprazole (Prevacid) 30 mg DAILY@06 GTB Last administered on 07/18/17 06:36 ; Admin Dose 30 MG; Start 07/18/17 at 06:00 Multivitamins (Multivitamin) 30 ml DAILY GTB Last administered on 07/18/17 08: 35; Admin Dose 30 ML; Start 07/18/17 at 09:00 Eye Lubricant (Akwa Oint) 1 applic Q4H BOTH EYES ; Start 07/17/17 at 13:00 Fluticasone Propionate (Flonase 0.05% Nasal) 1 spray DAILY NASAL Last administered on 07/18/17 08:36; Admin Dose 1 SPRAY; Start 07/18/17 at 09:00 Miscellaneous Information (*Order Clarification Bulletin) PROSTAT IS NOT A PHARM... Q8H XX ; Start 07/17/17 at 14:30 TIO KAUFMAN Jul 18, 2017 11:57
--- NOTE | 2017-07-18 16:42 | PN ---
Date/Time of Note Date/Time of Note DATE: 07/18/17 TIME: 16:39 Assessment/Plan VTE Prophylaxis VTE Prophylaxis Intervention: SCD's Lines/Catheters IV [facility] Type [facility]from [facility] Saline Lock Urinary Cath still in place: No Assessment/Plan Assessment/Plan 1. Acute hypercapnic respiratory failure on Vent - Pulmonology on board and weaning down FI02. patient will not be able to be completely weaned and will need current vent settings at the facility - Trach in proper place per CXR - Spoke with patients physician at the facility and states they do not have weaning orders there and limited support for ventilated patients but can care for him with a vent if needed - continue aggressive suctioning 2. Hypernatremia- resolved - Most likely secondary to dehydration 3. Hypotension- resolved - stable - Will continue to monitor and bolus as needed 4. Failure to thrive - PEG in place and TF running 5. Chronic vegetative state 6. Disposition - Will arrange for patient to be transferred back to [facility] on ventilator - Advise mother to have patient follow up with ENT physician who is familiar with his medical condition Subjective 24 Hr Interval Summary Free Text/Dictation Patient appears more comfortable and per mother is closer to baseline. No acute overnight events and no new issues. Spoke with Biotechnologist and states patient is not able to be weaned off the ventilator. Exam/Review of Systems Vital Signs Vitals Vital Signs Date Time Temp Pulse Resp B/P Pulse Ox O2 Delivery O2 Flow Rate FiO2 07/18/17 16:37 63 07/18/17 16:05 99.4 17 112/63 97 07/18/17 08:00 40 07/15/17 18:00 Mechanical Ventilator 07/14/17 20:53 10 Intake and Output 07/17/17 07/17/17 07/18/17 15:00 23:00 07:00 Intake Total 1080 ml 750 ml Output Total 400 ml 500 ml Balance 680 ml 250 ml Exam Constitutional: non-verbal, Trach connected to vent. In a chronic vegetative state. Head: atraumatic, normocephalic Neck: trach in place, no blood appreciated at site of insertion Respiratory: diminished breath sounds, no wheezing Cardiovascular: nl pulses, regular rate and rhythm Gastrointestinal: soft, nondistended, BS present Musculoskeletal: Deformity with contracture of extremities Results Result Diagram: 07/18/1761207/18/17612 Results 24 hrs Laboratory Tests Test 07/18/17 06:13 White Blood Count 6.7 Red Blood Count 5.33 Hemoglobin 14.3 Hematocrit 45.6 Mean Corpuscular Volume 85.6 Mean Corpuscular Hemoglobin 26.8 L Mean Corpuscular Hemoglobin Concent 31.4 L Red Cell Distribution Width 14.9 H Platelet Count 203 Mean Platelet Volume 12.4 H Neutrophils % 43.8 Lymphocytes % 34.1 Monocytes % 16.2 H Eosinophils % 5.1 Basophils % 0.7 Nucleated Red Blood Cells % 0.0 Neutrophils # 2.9 Lymphocytes # 2.3 Monocytes # 1.1 H Eosinophils # 0.3 Basophils # 0.1 Nucleated Red Blood Cells # 0.0 Sodium Level 143 Potassium Level 3.8 Chloride Level 104 Carbon Dioxide Level 29 Anion Gap 14 Blood Urea Nitrogen 13 Creatinine 0.52 L Glucose Level 96 Calcium Level 9.5 Phosphorus Level 4.8 Magnesium Level 1.9 Albumin 3.7 Medications Medications Current Medications Lorazepam (Ativan) 0.5 mg Q6H PRN IV ANXIETY Last administered on 07/17/17 14: 48; Admin Dose 0.5 MG; Start 07/15/17 at 06:00 Ondansetron HCl (Zofran Inj) 4 mg Q6H PRN IV NAUSEA AND/OR VOMITING; Start at 06:00 Morphine Sulfate (morphine) 2 mg Q4H PRN IV PAIN LEVEL 7-10 Last administered on 07/17/17 02:54; Admin Dose 2 MG; Start 07/15/17 at 06:00 Famotidine (Pepcid Iv) 20 mg Q12 IV Last administered on 07/15/17 08:24; Admin Dose 20 MG; Start 07/15/17 at 09:00; Status Future Hold Acetaminophen (Tylenol Liquid) 650 mg Q4 PRN PEG PAIN LEVEL 1-3 OR FEVER Last administered on 07/16/17 04:33; Admin Dose 650 MG; Start 07/16/17 at 04:30 Baclofen (Lioresal) 25 mg Q6 GTB Last administered on 07/18/17 12:14; Admin Dose 25 MG; Start 07/17/17 at 12:00 Clonidine HCl (Catapres-Tts 1 Patch) 1 patch Q7D TRANSDERM Last administered on 07/18/17 08:38; Admin Dose 1 PATCH; Start 07/17/17 at 11:30 Diazepam (Valium) 3 mg Q6 GTB Last administered on 07/18/17 12:14; Admin Dose 3 MG; Start 07/17/17 at 12:00 Erythromycin Ethylsuccinate (E.e.s (Ped)) 120 mg Q6 GTB Last administered on 12:14; Admin Dose 120 MG; Start 07/17/17 at 18:00 Glycopyrrolate (Robinul) 0.25 mg BID GTB Last administered on 07/18/17 08:35; Admin Dose 0.25 MG; Start 07/17/17 at 11:30 Levetiracetam (Keppra Liq (Ped)) 1,750 mg BID GTB Last administered on 08:35; Admin Dose 1,750 MG; Start 07/17/17 at 11:30 Montelukast Sodium (Singulair) 10 mg QHS GTB Last administered on 07/17/17 22: 44; Admin Dose 10 MG; Start 07/17/17 at 21:00 Neomycin/ Polymyxin/ Dexamethasone (Maxitrol Oph Oint) 1 applic QPM BOTH EYES Last administered on 07/17/17 22:44; Admin Dose 1 APPLIC; Start 07/17/17 at 21: 00 Polyethylene Glycol (Miralax) 17 gm DAILY PRN PO CONSTIPATION; Start 07/17/17 at 11:30 Eye Lubricant (Artificial Tears Oph) 1 drop PRN PRN BOTH EYES DRY EYES Last administered on 07/17/17 22:44; Admin Dose 1 DROP; Start 07/17/17 at 11:30 Valproate Sodium (Depakene Liquid Cup) 250 mg TID GTB Last administered on 07/18 12:14; Admin Dose 250 MG; Start 07/17/17 at 13:00 Cholecalciferol (Vitamin D) 2,000 unit DAILY GTB Last administered on 08:36; Admin Dose 2,000 UNIT; Start 07/18/17 at 09:00 Lansoprazole (Prevacid) 30 mg DAILY@06 GTB Last administered on 07/18/17 06:36 ; Admin Dose 30 MG; Start 07/18/17 at 06:00 Multivitamins (Multivitamin) 30 ml DAILY GTB Last administered on 07/18/17 08: 35; Admin Dose 30 ML; Start 07/18/17 at 09:00 Eye Lubricant (Akwa Oint) 1 applic Q4H BOTH EYES Last administered on 12:14; Admin Dose 1 APPLIC; Start 07/17/17 at 13:00 Fluticasone Propionate (Flonase 0.05% Nasal) 1 spray DAILY NASAL Last administered on 07/18/17 08:36; Admin Dose 1 SPRAY; Start 07/18/17 at 09:00 Miscellaneous Information (*Order Clarification Bulletin) PROSTAT IS NOT A PHARM... Q8H XX ; Start 07/17/17 at 14:30 JIM NANCE MD Jul 18, 2017 16:42
[2017-07-18] MEDS: MONTELUKAST 10 MG TAB GTB SCH (21:08)
[2017-07-18] MEDS: NEOMYC/POLYMYX/DEXAM 3.5GM OPH OINT BOTH EYES SCH (21:25)
[2017-07-19] VITALS (26 sets, daily range): BP systolic 98–118; BP diastolic 53–75; PULSE 55–69; RESP 17–23
[2017-07-19] MEDS: BACLOFEN 10 MG TAB GTB SCH ×4 (00:32→17:28)
[2017-07-19] MEDS: ERYTHROMYCIN ETHYL SUCC (80 MG/ML PO SYG) GTB SCH ×4 (00:32→17:28)
[2017-07-19] MEDS: DIAZEPAM 2 MG TAB GTB SCH ×4 (00:32→17:28)
[2017-07-19] MEDS: OCULAR LUBRICANT 3.5 GM OPH OINT BOTH EYES SCH ×6 (00:33→21:19)
[2017-07-19] MEDS: ALBUTEROL/IPRATROPIUM (NEB) 3 ML AMP HHN PRN ×2 (02:02→21:01)
[2017-07-19] MEDS ORDERED: VANCOMYCIN IV PER PHARMACY XX SCH (04:00)
[2017-07-19] MEDS ORDERED: VANCOMYCIN 1.25 GM in SOD CHLORIDE 0.9% 250 ML IVPB ONE (05:00)
[2017-07-19] MEDS: LANSOPRAZOLE 30 MG CAP GTB SCH (05:36)
[2017-07-19] MEDS: [UNRECOGNIZED DRUG - REMARK] XX SCH ×3 (05:48→21:26)
[2017-07-19] MEDS: LEVETIRACETAM (100 MG/ML PO SYG) GTB SCH ×2 (09:05→21:17)
[2017-07-19] MEDS: CHOLECALCIFEROL 1,000 UNIT TAB GTB SCH (09:05)
[2017-07-19] MEDS: MULTIVITAMINS 30 ML CUP GTB SCH (09:05)
[2017-07-19] MEDS: VALPROIC ACID LIQUID CUP 250 MG/5 ML CUP GTB SCH ×3 (09:05→21:18)
[2017-07-19] MEDS: GLYCOPYRROLATE 1 MG TAB GTB SCH ×2 (09:05→21:18)
[2017-07-19] MEDS: FLUTICASONE 0.05% 16 GM NAS SPRAY NASAL SCH (09:06)
--- NOTE | 2017-07-19 11:11 | PN ---
Date/Time of Note Date/Time of Note DATE: 07/19/17 TIME: 11:11 Assessment/Plan VTE Prophylaxis VTE Prophylaxis Intervention: SCD's Lines/Catheters IV C[facility]ter Type (from [facility]): Saline Lock Urinary Cath still in place: No Assessment/Plan Assessment/Plan 1. Acute hypercapnic respiratory failure on Vent- stable - Pulmonology on board and appreciate recommendations. Continue mechanical ventilation trial cool aerosol while inpatient - Trach in proper place per CXR - Spoke with patients physician at the facility and states they do not have weaning orders there and limited support for ventilated patients but can care for him with a vent if needed - continue aggressive suctioning 2. UTI - Urine culture grew Providencia and pseudomonas - ID consultation appreciated and started on Amikacin 3. Hypotension- resolved - stable - Will continue to monitor and bolus as needed 4. Failure to thrive - PEG in place and TF running 5. Chronic vegetative state 6. Disposition - Will arrange for patient to be transferred back to [facility]Note 2[facility] on ventilator. Admissions has not been returning our call so will try again tmrw - Advise mother to have patient follow up with ENT physician who is familiar with his medical condition Subjective 24 Hr Interval Summary Free Text/Dictation Patient still on vent, resting comfortably. No acute overnight events. Exam/Review of Systems Vital Signs Vitals Vital Signs Date Time Temp Pulse Resp B/P Pulse Ox O2 Delivery O2 Flow Rate FiO2 07/19/17 09:33 59 18 97 30 07/19/17 07:47 98.6 114/69 07/15/17 18:00 Mechanical Ventilator Intake and Output 07/18/17 07/18/17 07/19/17 15:00 23:00 07:00 Intake Total 1080 ml 840 ml Output Total 700 ml 400 ml Balance 380 ml 440 ml Exam Constitutional: non-verbal, Trach connected to vent. In a chronic vegetative state. Head: atraumatic, normocephalic Neck: trach in place, no blood appreciated at site of insertion Respiratory: coarse breath sounds, no wheezing Cardiovascular: nl pulses, regular rate and rhythm Gastrointestinal: soft, nondistended, BS present Musculoskeletal: Deformity with contracture of extremities Results Result Diagram: 07/19/17 0721 07/19/17 0721 Results 24 hrs Laboratory Tests Test 07/19/17 07:21 White Blood Count 5.9 Red Blood Count 4.85 Hemoglobin 13.1 L Hematocrit 41.4 L Mean Corpuscular Volume 85.4 Mean Corpuscular Hemoglobin 27.0 L Mean Corpuscular Hemoglobin Concent 31.6 L Red Cell Distribution Width 15.0 H Platelet Count 188 Mean Platelet Volume 12.8 H Neutrophils % 36.8 Lymphocytes % 39.8 Monocytes % 14.6 H Eosinophils % 8.1 H Basophils % 0.5 Nucleated Red Blood Cells % 0.0 Neutrophils # 2.2 Lymphocytes # 2.4 Monocytes # 0.9 Eosinophils # 0.5 Basophils # 0.0 Nucleated Red Blood Cells # 0.0 Sodium Level 141 Potassium Level 3.9 Chloride Level 103 Carbon Dioxide Level 27 Anion Gap 15 Blood Urea Nitrogen 14 Creatinine 0.52 L Glucose Level 102 Calcium Level 8.8 Phosphorus Level 4.5 Magnesium Level 1.9 Albumin 3.7 Medications Medications Current Medications Lorazepam (Ativan) 0.5 mg Q6H PRN IV ANXIETY Last administered on 07/17/17 14: 48; Admin Dose 0.5 MG; Start 07/15/17 at 06:00 Ondansetron HCl (Zofran Inj) 4 mg Q6H PRN IV NAUSEA AND/OR VOMITING; Start at 06:00 Morphine Sulfate (morphine) 2 mg Q4H PRN IV PAIN LEVEL 7-10 Last administered on 07/17/17 02:54; Admin Dose 2 MG; Start 07/15/17 at 06:00 Famotidine (Pepcid Iv) 20 mg Q12 IV Last administered on 07/15/17 08:24; Admin Dose 20 MG; Start 07/15/17 at 09:00; Status Future Hold Acetaminophen (Tylenol Liquid) 650 mg Q4 PRN PEG PAIN LEVEL 1-3 OR FEVER Last administered on 07/16/17 04:33; Admin Dose 650 MG; Start 07/16/17 at 04:30 Baclofen (Lioresal) 25 mg Q6 GTB Last administered on 07/19/17 05:36; Admin Dose 25 MG; Start 07/17/17 at 12:00 Clonidine HCl (Catapres-Tts 1 Patch) 1 patch Q7D TRANSDERM Last administered on 07/18/17 08:38; Admin Dose 1 PATCH; Start 07/17/17 at 11:30 Diazepam (Valium) 3 mg Q6 GTB Last administered on 07/19/17 05:36; Admin Dose 3 MG; Start 07/17/17 at 12:00 Erythromycin Ethylsuccinate (E.e.s (Ped)) 120 mg Q6 GTB Last administered on 00:32; Admin Dose 120 MG; Start 07/17/17 at 18:00 Glycopyrrolate (Robinul) 0.25 mg BID GTB Last administered on 07/19/17 09:05; Admin Dose 0.25 MG; Start 07/17/17 at 11:30 Levetiracetam (Keppra Liq (Ped)) 1,750 mg BID GTB Last administered on 09:05; Admin Dose 1,750 MG; Start 07/17/17 at 11:30 Montelukast Sodium (Singulair) 10 mg QHS GTB Last administered on 07/18/17 21: 08; Admin Dose 10 MG; Start 07/17/17 at 21:00 Neomycin/ Polymyxin/ Dexamethasone (Maxitrol Oph Oint) 1 applic QPM BOTH EYES Last administered on 07/18/17 21:25; Admin Dose 1 APPLIC; Start 07/17/17 at 21: 00 Polyethylene Glycol (Miralax) 17 gm DAILY PRN PO CONSTIPATION; Start 07/17/17 at 11:30 Eye Lubricant (Artificial Tears Oph) 1 drop PRN PRN BOTH EYES DRY EYES Last administered on 07/17/17 22:44; Admin Dose 1 DROP; Start 07/17/17 at 11:30 Valproate Sodium (Depakene Liquid Cup) 250 mg TID GTB Last administered on 07/19 09:05; Admin Dose 250 MG; Start 07/17/17 at 13:00 Cholecalciferol (Vitamin D) 2,000 unit DAILY GTB Last administered on 09:05; Admin Dose 2,000 UNIT; Start 07/18/17 at 09:00 Lansoprazole (Prevacid) 30 mg DAILY@06 GTB Last administered on 07/19/17 05:36 ; Admin Dose 30 MG; Start 07/18/17 at 06:00 Multivitamins (Multivitamin) 30 ml DAILY GTB Last administered on 07/19/17 09: 05; Admin Dose 30 ML; Start 07/18/17 at 09:00 Eye Lubricant (Akwa Oint) 1 applic Q4H BOTH EYES Last administered on 09:06; Admin Dose 1 APPLIC; Start 07/17/17 at 13:00 Fluticasone Propionate (Flonase 0.05% Nasal) 1 spray DAILY NASAL Last administered on 07/19/17 09:06; Admin Dose 1 SPRAY; Start 07/18/17 at 09:00 Miscellaneous Information PROSTAT IS NOT A PHARM... Q8H XX ; Start 07/17/17 at 14:30 Vancomycin HCl (Vancocin) 250 ml @ 125 mls/hr Q8H IVPB ; Start 07/19/17 at 13: 00 Miscellaneous Information (*Rx Drug Level Order Reminder*) VANCOMYCIN TROUGH AT 0400 ONCE ONCE XX ; Start 07/20/17 at 04:00; Stop 07/20/17 at 04:01 JIM NANCE MD Jul 19, 2017 11:11
[2017-07-19] MEDS ORDERED: AMIKACIN IV PER PHARMACY XX SCH (12:30)
[2017-07-19] MEDS: VANCOMYCIN 1 GM in NS 250 ML IVPB SCH ×2 (12:42→21:18)
--- NOTE | 2017-07-19 13:00 | CONS ---
DATE OF ADMISSION: 07/14/2017 DATE OF CONSULTATION: 07/19/2017 TYPE OF CONSULTATION: Infectious Disease. REASON FOR CONSULTATION: Antibiotic management. HISTORY OF PRESENT ILLNESS: Jonathon Gibbs is an unfortunate 21-year-old male who has numerous probl ems and is being seen for antibiotic management. His problems include: 1. Chronic encephalopathy. 2. 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 Patient had a fall at age 4. Patient has been bleeding through his tracheostomy since the tube was placed. He presented to the Emergency Room to normalize his oxygen saturation. About 200 mL of blo od was suctioned over a period of 7 hours. Chest x-ray shows left lung atelectasis versus airspace disease. On admission, his white count was 6.0, H and H of 14.5 and 49.3, platelet count 198,000. BUN and creatinine 17/0.52. HOSPITAL COURSE: Chest x-ray from the shows stable poor lung expansion, no active cardiopulmon nayla disease. On the , again, left mid lung and lung base atelectasis versus airspace disease an d on the hypoventilation changes, prominent interstitial markings, superimposed infectious proc ess cannot be excluded, status post tracheostomy. The patient also has contractures. He was seen b y a number of different physicians including Dr. Abbasi who noted he was irresponsive, the G tube is in place as well. MICROBIOLOGY: He is growing out Providencia stuartii and Pseudomonas aeruginosa. He also had some gram-positive cocci in clusters in 1 blood culture out of 3, probable contaminant. Providencia is s ensitive to amikacin and also Providencia on the pseudomonas is sensitive to amikacin. Patient is c urrently on vancomycin. PAST MEDICAL HISTORY: Operations as outlined. FAMILY HISTORY: Noncontributory. SOCIAL HISTORY: The patient has been in a [place] [facility] facility or at least he has had chronic e ncephalopathy since the age of 4. FAMILY HISTORY: Noncontributory. SOCIAL HISTORY: He never smoked, never drank. ALLERGIES: NONE TO PENICILLIN, SULFA OR FOODS. MEDICATIONS: Per chart. REVIEW OF SYSTEMS: Noncontributory. PHYSICAL EXAMINATION: NEUROLOGIC: Patient is nonverbal. He has a tracheostomy to vent. HEENT: Within normal limits. NECK: Supple. LYMPH NODES: None palpable. CHEST: Decreased breath sounds at the bases. HEART: Without murmur or gallop. ABDOMEN: Soft, nontender, without organosplenomegaly or masses. EXTREMITIES: Without cyanosis, clubbing, or edema. RECTAL AND GENITAL: Deferred. NEUROLOGICAL: No focal neurological abnormalities. IMPRESSION AND PLAN: Jonathon Gibbs is a 21-year-old male. He has a Cortes catheter in place and he has multiple resistant organisms. His urine culture is negative. He is afebrile, so it is not shandra r whether he is colonized or infected. Nevertheless, we are going to start him on amikacin to eradi abe these very resistant organisms. I will dictate my findings to the hospitalist. Dictated By: ROSARIO CABA MD, JD/WERNER Conf#: [id number] DID#: [id number]
--- NOTE | 2017-07-19 16:53 | CONS ---
Date/Time of Note Date/Time of Note DATE: 07/19/17 TIME: 16:52 Consult Date/Type/Reason Admit Date/Time Jul 14, 2017 at 21:38 Initial Consult Date 07/16/17 Type of Consultation: Pulmonary Ordering Provider: LIBRA GARCIA MD Subjective Patient comfortable this morning. No new events. Continues mechanical ventilation. Objective Vital Signs Date Time Temp Pulse Resp B/P Pulse Ox O2 Delivery O2 Flow Rate FiO2 07/19/17 15:45 97.9 57 17 101/58 98 07/19/17 15:24 30 07/15/17 18:00 Mechanical Ventilator Intake and Output 07/18/17 07/18/17 07/19/17 15:00 23:00 07:00 Intake Total 1080 ml 840 ml Output Total 700 ml 400 ml Balance 380 ml 440 ml Exam GENERAL: Chronically ill-appearing gentleman on mechanical ventilation via tracheostomy VITAL SIGNS: per chart NECK: Supple. No JVD or lymphadenopathy. CARDIAC EXAM: S1, S2. No added sounds or murmurs. CHEST: clear bilaterally, No added sounds, rales or wheezes ABDOMEN: Soft, nontender. No guarding or rebound. EXTREMITIES: No cyanosis, clubbing or edema. NEUROLOGIC: Generalized weakness. No focal deficits. Results/Medications Result Diagram: 07/19/1772007/19/17 07 Results 24 hrs Laboratory Tests Test 07/19/17 07:21 White Blood Count 5.9 Red Blood Count 4.85 Hemoglobin 13.1 L Hematocrit 41.4 L Mean Corpuscular Volume 85.4 Mean Corpuscular Hemoglobin 27.0 L Mean Corpuscular Hemoglobin Concent 31.6 L Red Cell Distribution Width 15.0 H Platelet Count 188 Mean Platelet Volume 12.8 H Neutrophils % 36.8 Lymphocytes % 39.8 Monocytes % 14.6 H Eosinophils % 8.1 H Basophils % 0.5 Nucleated Red Blood Cells % 0.0 Neutrophils # 2.2 Lymphocytes # 2.4 Monocytes # 0.9 Eosinophils # 0.5 Basophils # 0.0 Nucleated Red Blood Cells # 0.0 Sodium Level 141 Potassium Level 3.9 Chloride Level 103 Carbon Dioxide Level 27 Anion Gap 15 Blood Urea Nitrogen 14 Creatinine 0.52 L Glucose Level 102 Calcium Level 8.8 Phosphorus Level 4.5 Magnesium Level 1.9 Albumin 3.7 Medications Current Medications Lorazepam (Ativan) 0.5 mg Q6H PRN IV ANXIETY Last administered on 07/17/17 14: 48; Admin Dose 0.5 MG; Start 07/15/17 at 06:00 Ondansetron HCl (Zofran Inj) 4 mg Q6H PRN IV NAUSEA AND/OR VOMITING; Start at 06:00 Morphine Sulfate (morphine) 2 mg Q4H PRN IV PAIN LEVEL 7-10 Last administered on 07/17/17 02:54; Admin Dose 2 MG; Start 07/15/17 at 06:00 Famotidine (Pepcid Iv) 20 mg Q12 IV Last administered on 07/15/17 08:24; Admin Dose 20 MG; Start 07/15/17 at 09:00; Status Future Hold Acetaminophen (Tylenol Liquid) 650 mg Q4 PRN PEG PAIN LEVEL 1-3 OR FEVER Last administered on 07/16/17 04:33; Admin Dose 650 MG; Start 07/16/17 at 04:30 Baclofen (Lioresal) 25 mg Q6 GTB Last administered on 07/19/17 12:42; Admin Dose 25 MG; Start 07/17/17 at 12:00 Clonidine HCl (Catapres-Tts 1 Patch) 1 patch Q7D TRANSDERM Last administered on 07/18/17 08:38; Admin Dose 1 PATCH; Start 07/17/17 at 11:30 Diazepam (Valium) 3 mg Q6 GTB Last administered on 07/19/17 12:42; Admin Dose 3 MG; Start 07/17/17 at 12:00 Erythromycin Ethylsuccinate (E.e.s (Ped)) 120 mg Q6 GTB Last administered on 00:32; Admin Dose 120 MG; Start 07/17/17 at 18:00 Glycopyrrolate (Robinul) 0.25 mg BID GTB Last administered on 07/19/17 09:05; Admin Dose 0.25 MG; Start 07/17/17 at 11:30 Levetiracetam (Keppra Liq (Ped)) 1,750 mg BID GTB Last administered on 09:05; Admin Dose 1,750 MG; Start 07/17/17 at 11:30 Montelukast Sodium (Singulair) 10 mg QHS GTB Last administered on 07/18/17 21: 08; Admin Dose 10 MG; Start 07/17/17 at 21:00 Neomycin/ Polymyxin/ Dexamethasone (Maxitrol Oph Oint) 1 applic QPM BOTH EYES Last administered on 07/18/17 21:25; Admin Dose 1 APPLIC; Start 07/17/17 at 21: 00 Polyethylene Glycol (Miralax) 17 gm DAILY PRN PO CONSTIPATION; Start 07/17/17 at 11:30 Eye Lubricant (Artificial Tears Oph) 1 drop PRN PRN BOTH EYES DRY EYES Last administered on 07/17/17 22:44; Admin Dose 1 DROP; Start 07/17/17 at 11:30 Valproate Sodium (Depakene Liquid Cup) 250 mg TID GTB Last administered on 07/19 12:42; Admin Dose 250 MG; Start 07/17/17 at 13:00 Cholecalciferol (Vitamin D) 2,000 unit DAILY GTB Last administered on 09:05; Admin Dose 2,000 UNIT; Start 07/18/17 at 09:00 Lansoprazole (Prevacid) 30 mg DAILY@06 GTB Last administered on 07/19/17 05:36 ; Admin Dose 30 MG; Start 07/18/17 at 06:00 Multivitamins (Multivitamin) 30 ml DAILY GTB Last administered on 07/19/17 09: 05; Admin Dose 30 ML; Start 07/18/17 at 09:00 Eye Lubricant (Akwa Oint) 1 applic Q4H BOTH EYES Last administered on 12:43; Admin Dose 1 APPLIC; Start 07/17/17 at 13:00 Fluticasone Propionate (Flonase 0.05% Nasal) 1 spray DAILY NASAL Last administered on 07/19/17 09:06; Admin Dose 1 SPRAY; Start 07/18/17 at 09:00 Miscellaneous Information PROSTAT IS NOT A PHARM... Q8H XX ; Start 07/17/17 at 14:30 Vancomycin HCl (Vancocin) 250 ml @ 125 mls/hr Q8H IVPB Last administered on 12:42; Admin Dose 125 MLS/HR; Start 07/19/17 at 13:00 Miscellaneous Information (*Rx Drug Level Order Reminder*) VANCOMYCIN TROUGH 11 / 4 AT 0400 ONCE ONCE XX ; Start 07/20/17 at 04:00; Stop 07/20/17 at 04:01 Amikacin Sulfate AMIKACIN PER PHARMACY NOTE XX ; Start 07/19/17 at 12:30 Amikacin Sulfate/ Sodium Chloride (Amikacin/NS) 100 ml @ 102 mls/hr Q12H IVPB ; Start 07/19/17 at 15:30 Assessment/Plan Chief Complaint/Hosp Course Assessment 1. Status post tracheostomy dislodged. Now replaced on mechanical ventilation previously patient was on cool aerosol 2. Chronic encephalopathy persistent vegetative state Plan 1. Continue mechanical ventilation trial cool aerosol if patient not return to [place] [facility] DC planning okay from pulmonary standpoint Problems: ARACELY AYALA MD, [facility] Jul 19, 2017 16:53
[2017-07-19] MEDS: SOD CHLORIDE 0.9% IVPB SCH (17:28)
[2017-07-19] MEDS: AMIKACIN IVPB SCH (17:28)
[2017-07-19] MEDS: NEOMYC/POLYMYX/DEXAM 3.5GM OPH OINT BOTH EYES SCH (21:00)
[2017-07-19] MEDS: MONTELUKAST 10 MG TAB GTB SCH (21:18)
[2017-07-20] VITALS (25 sets, daily range): BP systolic 86–124; BP diastolic 45–59; PULSE 45–99; RESP 17–19
[2017-07-20] MEDS: ERYTHROMYCIN ETHYL SUCC (80 MG/ML PO SYG) GTB SCH ×4 (00:37→17:14)
[2017-07-20] MEDS: OCULAR LUBRICANT 3.5 GM OPH OINT BOTH EYES SCH ×6 (01:15→21:03)
[2017-07-20] MEDS: ALBUTEROL/IPRATROPIUM (NEB) 3 ML AMP HHN PRN ×3 (01:25→20:34)
[2017-07-20] MEDS: SOD CHLORIDE 0.9% IVPB SCH ×2 (03:29→15:14)
[2017-07-20] MEDS: AMIKACIN IVPB SCH ×2 (03:29→15:14)
[2017-07-20] MEDS: DIAZEPAM 2 MG TAB GTB SCH ×4 (05:31→17:15)
[2017-07-20] MEDS: LANSOPRAZOLE 30 MG CAP GTB SCH (05:32)
[2017-07-20] MEDS: [UNRECOGNIZED DRUG - REMARK] XX SCH ×3 (05:32→22:30)
[2017-07-20] MEDS: BACLOFEN 10 MG TAB GTB SCH ×4 (05:32→17:15)
[2017-07-20] MEDS: VANCOMYCIN 1 GM in NS 250 ML IVPB SCH (06:12)
[2017-07-20] MEDS: MULTIVITAMINS 30 ML CUP GTB SCH (09:01)
[2017-07-20] MEDS: FLUTICASONE 0.05% 16 GM NAS SPRAY NASAL SCH (09:01)
[2017-07-20] MEDS: CHOLECALCIFEROL 1,000 UNIT TAB GTB SCH (09:02)
[2017-07-20] MEDS: LEVETIRACETAM (100 MG/ML PO SYG) GTB SCH ×2 (09:02→21:02)
[2017-07-20] MEDS: GLYCOPYRROLATE 1 MG TAB GTB SCH ×2 (09:02→21:02)
[2017-07-20] MEDS: VALPROIC ACID LIQUID CUP 250 MG/5 ML CUP GTB SCH ×3 (09:02→21:02)
[2017-07-20] MEDS ORDERED: VANCOMYCIN 750 MG in DEXTROSE 5% 150 ML IVPB SCH (13:00)
--- NOTE | 2017-07-20 14:17 | PN ---
Date/Time of Note Date/Time of Note DATE: 07/20/17 TIME: 14:12 Assessment/Plan VTE Prophylaxis VTE Prophylaxis Intervention: SCD's Lines/Catheters IV [facility]ter [facility] Saline Lock Urinary Cath still in place: No Assessment/Plan Assessment/Plan 1. Acute hypercapnic respiratory failure on Vent- stable - Pulmonology on board and appreciate recommendations. Will touch base if patient would be able to be weaned off the vent given the fact he was not vent dependent before - Trach in proper place per CXR - continue aggressive suctioning. Patient produces a large amount of sputum normally as discussed with treating physician at [facility] 2. UTI - Urine culture grew Providencia and pseudomonas - ID consultation appreciated and started on Amikacin 3. Hypotension- resolved - stable - Will continue to monitor and bolus as needed 4. Failure to thrive - PEG in place and TF running 5. Chronic vegetative state 6. Junctional rhythm - appears to be a one time episodes when trach was dislodged - serial troponins negative - back in sinus rhythm 7. Disposition - Will touch base with Pulm regarding best vent settings. Facility does not have weaning protocols in place but can manage ventilator patients - Advise mother to have patient follow up with ENT physician who is familiar with his medical condition Subjective 24 Hr Interval Summary Free Text/Dictation patient resting comfortably on vent. Patient had trach dislodged yesterday but fixed by RT. At same time, patient seen in junctional rhythm but resolved. Troponins ordered and series negative. Exam/Review of Systems Vital Signs Vitals Vital Signs Date Time Temp Pulse Resp B/P Pulse Ox O2 Delivery O2 Flow Rate FiO2 07/20/17 13:15 61 18 99 30 07/20/17 12:28 98.6 86/47 Intake and Output 07/19/17 07/19/17 07/20/17 15:00 23:00 07:00 Intake Total 1440 ml 800 ml Output Total 400 ml 400 ml Balance 1040 ml 400 ml Exam Constitutional: non-verbal, Trach connected to vent. In a chronic vegetative state. Head: atraumatic, normocephalic Neck: trach in place, no blood appreciated at site of insertion Respiratory: coarse breath sounds, diminished at bases, no wheezing Cardiovascular: nl pulses, regular rate and rhythm Gastrointestinal: soft, nondistended, BS present Musculoskeletal: Deformity with contracture of extremities Results Result Diagram: 07/20/17 1720 07/20/17 0440 Results 24 hrs Laboratory Tests Test 07/20/17 04:40 07/20/17 11:28 White Blood Count 5.4 Red Blood Count 4.38 L Hemoglobin 11.9 L Hematocrit 37.1 L Mean Corpuscular Volume 84.7 Mean Corpuscular Hemoglobin 27.2 L Mean Corpuscular Hemoglobin Concent 32.1 Red Cell Distribution Width 14.7 H Platelet Count 171 Mean Platelet Volume 12.6 H Neutrophils % 39.5 Lymphocytes % 37.7 Monocytes % 12.9 Eosinophils % 9.0 H Basophils % 0.7 Nucleated Red Blood Cells % 0.0 Neutrophils # 2.1 Lymphocytes # 2.0 Monocytes # 0.7 Eosinophils # 0.5 Basophils # 0.0 Nucleated Red Blood Cells # 0.0 Sodium Level 141 Potassium Level 4.4 Chloride Level 107 Carbon Dioxide Level 28 Anion Gap 10 # Blood Urea Nitrogen 11 Creatinine 0.48 L Glucose Level 90 Calcium Level 8.7 Phosphorus Level 3.8 Magnesium Level 1.8 Creatine Kinase 77 88 Creatine Kinase Index 0.8 0.8 Creatinine Kinase MB (Mass) 0.63 0.73 Troponin I < 0.012 < 0.012 Albumin 3.1 L Vancomycin Level Trough 17.2 Medications Medications Current Medications Lorazepam (Ativan) 0.5 mg Q6H PRN IV ANXIETY Last administered on 07/17/17 14: 48; Admin Dose 0.5 MG; Start 07/15/17 at 06:00 Ondansetron HCl (Zofran Inj) 4 mg Q6H PRN IV NAUSEA AND/OR VOMITING; Start at 06:00 Morphine Sulfate (morphine) 2 mg Q4H PRN IV PAIN LEVEL 7-10 Last administered on 07/17/17 02:54; Admin Dose 2 MG; Start 07/15/17 at 06:00 Famotidine (Pepcid Iv) 20 mg Q12 IV Last administered on 07/15/17 08:24; Admin Dose 20 MG; Start 07/15/17 at 09:00; Status Future Hold Acetaminophen (Tylenol Liquid) 650 mg Q4 PRN PEG PAIN LEVEL 1-3 OR FEVER Last administered on 07/16/17 04:33; Admin Dose 650 MG; Start 07/16/17 at 04:30 Baclofen (Lioresal) 25 mg Q6 GTB Last administered on 07/20/17 12:20; Admin Dose 25 MG; Start 07/17/17 at 12:00 Clonidine HCl (Catapres-Tts 1 Patch) 1 patch Q7D TRANSDERM Last administered on 07/18/17 08:38; Admin Dose 1 PATCH; Start 07/17/17 at 11:30 Diazepam (Valium) 3 mg Q6 GTB Last administered on 07/20/17 12:21; Admin Dose 3 MG; Start 07/17/17 at 12:00 Erythromycin Ethylsuccinate (E.e.s (Ped)) 120 mg Q6 GTB Last administered on 12:20; Admin Dose 120 MG; Start 07/17/17 at 18:00 Glycopyrrolate (Robinul) 0.25 mg BID GTB Last administered on 07/20/17 09:02; Admin Dose 0.25 MG; Start 07/17/17 at 11:30 Levetiracetam (Keppra Liq (Ped)) 1,750 mg BID GTB Last administered on 09:02; Admin Dose 1,750 MG; Start 07/17/17 at 11:30 Montelukast Sodium (Singulair) 10 mg QHS GTB Last administered on 07/19/17 21: 18; Admin Dose 10 MG; Start 07/17/17 at 21:00 Neomycin/ Polymyxin/ Dexamethasone (Maxitrol Oph Oint) 1 applic QPM BOTH EYES Last administered on 07/18/17 21:25; Admin Dose 1 APPLIC; Start 07/17/17 at 21: 00 Polyethylene Glycol (Miralax) 17 gm DAILY PRN PO CONSTIPATION Last administered on 07/19/17 17:31; Admin Dose 17 GM; Start 07/17/17 at 11:30 Eye Lubricant (Artificial Tears Oph) 1 drop PRN PRN BOTH EYES DRY EYES Last administered on 07/17/17 22:44; Admin Dose 1 DROP; Start 07/17/17 at 11:30 Valproate Sodium (Depakene Liquid Cup) 250 mg TID GTB Last administered on 07/20 12:20; Admin Dose 250 MG; Start 07/17/17 at 13:00 Cholecalciferol (Vitamin D) 2,000 unit DAILY GTB Last administered on 09:02; Admin Dose 2,000 UNIT; Start 07/18/17 at 09:00 Lansoprazole (Prevacid) 30 mg DAILY@06 GTB Last administered on 07/20/17 05:32 ; Admin Dose 30 MG; Start 07/18/17 at 06:00 Multivitamins (Multivitamin) 30 ml DAILY GTB Last administered on 07/20/17 09: 01; Admin Dose 30 ML; Start 07/18/17 at 09:00 Eye Lubricant (Akwa Oint) 1 applic Q4H BOTH EYES Last administered on 12:21; Admin Dose 1 APPLIC; Start 07/17/17 at 13:00 Fluticasone Propionate (Flonase 0.05% Nasal) 1 spray DAILY NASAL Last administered on 07/20/17 09:01; Admin Dose 1 SPRAY; Start 07/18/17 at 09:00 Miscellaneous Information (*Order Clarification Bulletin) PROSTAT IS NOT A PHARM... Q8H XX ; Start 07/17/17 at 14:30 Amikacin Sulfate AMIKACIN PER PHARMACY NOTE XX ; Start 07/19/17 at 12:30 Amikacin Sulfate/ Sodium Chloride (Amikacin/NS) 100 ml @ 102 mls/hr Q12H IVPB Last administered on 07/20/17 03:29; Admin Dose 102 MLS/HR; Start 07/19/17 at 15:30 Miscellaneous Information (*Rx Drug Level Order Reminder*) AMIKACIN TROUGH 07/20 AT 1... ONCE XX ; Start 07/20/17 at 14:30; Stop 07/20/17 at 17:01 JIM NANCE MD Jul 20, 2017 14:17
--- NOTE | 2017-07-20 15:50 | CONS ---
Date/Time of Note Date/Time of Note DATE: 07/20/17 TIME: 15:49 Consult Date/Type/Reason Admit Date/Time Jul 14, 2017 at 21:38 Initial Consult Date 07/16/17 Type of Consultation: Pulmonary Ordering Provider: LIBRA GARCIA MD Subjective No events. Objective Vital Signs Date Time Temp Pulse Resp B/P Pulse Ox O2 Delivery O2 Flow Rate FiO2 07/20/17 15:10 61 18 98 30 07/20/17 12:28 98.6 86/47 Intake and Output 07/19/17 07/19/17 07/20/17 15:00 23:00 07:00 Intake Total 1440 ml 800 ml Output Total 400 ml 400 ml Balance 1040 ml 400 ml Exam HEENT: Neck supple; no JVD; no LAD; trach clean CVS: RRR, S1 and S2 CHEST: Clear ABD: Soft, NT, + BS EXT: No c/c/e Results/Medications Result Diagram: 07/20/17 0440 07/20/17 0440 Results 24 hrs Laboratory Tests Test 07/20/17 04:40 07/20/17 11:28 White Blood Count 5.4 Red Blood Count 4.38 L Hemoglobin 11.9 L Hematocrit 37.1 L Mean Corpuscular Volume 84.7 Mean Corpuscular Hemoglobin 27.2 L Mean Corpuscular Hemoglobin Concent 32.1 Red Cell Distribution Width 14.7 H Platelet Count 171 Mean Platelet Volume 12.6 H Neutrophils % 39.5 Lymphocytes % 37.7 Monocytes % 12.9 Eosinophils % 9.0 H Basophils % 0.7 Nucleated Red Blood Cells % 0.0 Neutrophils # 2.1 Lymphocytes # 2.0 Monocytes # 0.7 Eosinophils # 0.5 Basophils # 0.0 Nucleated Red Blood Cells # 0.0 Sodium Level 141 Potassium Level 4.4 Chloride Level 107 Carbon Dioxide Level 28 Anion Gap 10 # Blood Urea Nitrogen 11 Creatinine 0.48 L Glucose Level 90 Calcium Level 8.7 Phosphorus Level 3.8 Magnesium Level 1.8 Creatine Kinase 77 88 Creatine Kinase Index 0.8 0.8 Creatinine Kinase MB (Mass) 0.63 0.73 Troponin I < 0.012 < 0.012 Albumin 3.1 L Vancomycin Level Trough 17.2 Medications Current Medications Lorazepam (Ativan) 0.5 mg Q6H PRN IV ANXIETY Last administered on 07/17/17t 14: 48; Admin Dose 0.5 MG; Start 07/15/17 at 06:00 Ondansetron HCl (Zofran Inj) 4 mg Q6H PRN IV NAUSEA AND/OR VOMITING; Start at 06:00 Morphine Sulfate (morphine) 2 mg Q4H PRN IV PAIN LEVEL 7-10 Last administered on 07/17/17 02:54; Admin Dose 2 MG; Start 07/15/17 at 06:00 Famotidine (Pepcid Iv) 20 mg Q12 IV Last administered on 07/15/17 08:24; Admin Dose 20 MG; Start 07/15/17 at 09:00; Status Future Hold Acetaminophen (Tylenol Liquid) 650 mg Q4 PRN PEG PAIN LEVEL 1-3 OR FEVER Last administered on 07/16/17 04:33; Admin Dose 650 MG; Start 07/16/17 at 04:30 Baclofen (Lioresal) 25 mg Q6 GTB Last administered on 07/20/17 12:20; Admin Dose 25 MG; Start 07/17/17 at 12:00 Clonidine HCl (Catapres-Tts 1 Patch) 1 patch Q7D TRANSDERM Last administered on 07/18/17 08:38; Admin Dose 1 PATCH; Start 07/17/17 at 11:30 Diazepam (Valium) 3 mg Q6 GTB Last administered on 07/20/17 12:21; Admin Dose 3 MG; Start 07/17/17 at 12:00 Erythromycin Ethylsuccinate (E.e.s (Ped)) 120 mg Q6 GTB Last administered on 12:20; Admin Dose 120 MG; Start 07/17/17 at 18:00 Glycopyrrolate (Robinul) 0.25 mg BID GTB Last administered on 07/20/17 09:02; Admin Dose 0.25 MG; Start 07/17/17 at 11:30 Levetiracetam (Keppra Liq (Ped)) 1,750 mg BID GTB Last administered on 09:02; Admin Dose 1,750 MG; Start 07/17/17 at 11:30 Montelukast Sodium (Singulair) 10 mg QHS GTB Last administered on 07/19/17 21: 18; Admin Dose 10 MG; Start 07/17/17 at 21:00 Neomycin/ Polymyxin/ Dexamethasone (Maxitrol Oph Oint) 1 applic QPM BOTH EYES Last administered on 07/18/17 21:25; Admin Dose 1 APPLIC; Start 07/17/17 at 21: 00 Polyethylene Glycol (Miralax) 17 gm DAILY PRN PO CONSTIPATION Last administered on 07/19/17 17:31; Admin Dose 17 GM; Start 07/17/17 at 11:30 Eye Lubricant (Artificial Tears Oph) 1 drop PRN PRN BOTH EYES DRY EYES Last administered on 07/17/17 22:44; Admin Dose 1 DROP; Start 07/17/17 at 11:30 Valproate Sodium (Depakene Liquid Cup) 250 mg TID GTB Last administered on 07/20 12:20; Admin Dose 250 MG; Start 07/17/17 at 13:00 Cholecalciferol (Vitamin D) 2,000 unit DAILY GTB Last administered on 09:02; Admin Dose 2,000 UNIT; Start 07/18/17 at 09:00 Lansoprazole (Prevacid) 30 mg DAILY@06 GTB Last administered on 07/20/17 05:32 ; Admin Dose 30 MG; Start 07/18/17 at 06:00 Multivitamins (Multivitamin) 30 ml DAILY GTB Last administered on 07/20/17 09: 01; Admin Dose 30 ML; Start 07/18/17 at 09:00 Eye Lubricant (Akwa Oint) 1 applic Q4H BOTH EYES Last administered on 12:21; Admin Dose 1 APPLIC; Start 07/17/17 at 13:00 Fluticasone Propionate (Flonase 0.05% Nasal) 1 spray DAILY NASAL Last administered on 07/20/17 09:01; Admin Dose 1 SPRAY; Start 07/18/17 at 09:00 Miscellaneous Information (*Order Clarification Bulletin) KATIE IS NOT A PHARM... Q8H XX ; Start 07/17/17 at 14:30 Amikacin Sulfate AMIKACIN PER PHARMACY NOTE XX ; Start 07/19/17 at 12:30 Amikacin Sulfate/ Sodium Chloride (Amikacin/NS) 100 ml @ 102 mls/hr Q12H IVPB Last administered on 11/4/17at 15:14; Admin Dose 102 MLS/HR; Start 07/19/17 at 15:30 Miscellaneous Information (*Rx Drug Level Order Reminder*) AMIKACIN TROUGH 07/20 AT 1... ONCE XX ; Start 07/20/17 at 14:30; Stop 07/20/17 at 17:01 Assessment/Plan Additional Assessment/Plan IMP 1. Status post tracheostomy dislodged. Now replaced on mechanical ventilation previously patient was on cool aerosol 2. Chronic encephalopathy persistent vegetative state RECS: 1. To CPAP 5 PS 8 2. If tolerates above--> trach collar. SUSAN MURRELL MD Jul 20, 2017 15:50
[2017-07-20] MEDS: NEOMYC/POLYMYX/DEXAM 3.5GM OPH OINT BOTH EYES SCH (21:00)
[2017-07-20] MEDS: MONTELUKAST 10 MG TAB GTB SCH (21:02)
[2017-07-21] VITALS (25 sets, daily range): BP systolic 91–148; BP diastolic 53–87; PULSE 51–72; RESP 17–20
[2017-07-21] MEDS: OCULAR LUBRICANT 3.5 GM OPH OINT BOTH EYES SCH ×6 (01:00→21:10)
[2017-07-21] MEDS: SOD CHLORIDE 0.9% IVPB SCH ×2 (03:40→15:03)
[2017-07-21] MEDS: AMIKACIN IVPB SCH ×2 (03:40→15:03)
[2017-07-21] MEDS: LANSOPRAZOLE 30 MG CAP GTB SCH (05:36)
[2017-07-21] MEDS: DIAZEPAM 2 MG TAB GTB SCH ×4 (05:37→18:36)
[2017-07-21] MEDS: BACLOFEN 10 MG TAB GTB SCH ×4 (05:37→17:49)
[2017-07-21] MEDS: ERYTHROMYCIN ETHYL SUCC (80 MG/ML PO SYG) GTB SCH ×4 (05:39→17:49)
[2017-07-21] MEDS: ALBUTEROL/IPRATROPIUM (NEB) 3 ML AMP HHN PRN ×4 (06:16→20:26)
[2017-07-21] MEDS: [UNRECOGNIZED DRUG - REMARK] XX SCH ×3 (06:30→22:30)
[2017-07-21] MEDS: GLYCOPYRROLATE 1 MG TAB GTB SCH ×2 (09:18→21:09)
[2017-07-21] MEDS: VALPROIC ACID LIQUID CUP 250 MG/5 ML CUP GTB SCH ×3 (09:19→21:09)
[2017-07-21] MEDS: MULTIVITAMINS 30 ML CUP GTB SCH (09:19)
[2017-07-21] MEDS: FLUTICASONE 0.05% 16 GM NAS SPRAY NASAL SCH (09:19)
[2017-07-21] MEDS: LEVETIRACETAM (100 MG/ML PO SYG) GTB SCH ×2 (09:19→21:09)
[2017-07-21] MEDS: CHOLECALCIFEROL 1,000 UNIT TAB GTB SCH (09:19)
--- NOTE | 2017-07-21 13:33 | PN ---
Date/Time of Note Date/Time of Note DATE: 07/21/17 TIME: 13:33 Assessment/Plan VTE Prophylaxis VTE Prophylaxis Intervention: SCD's Lines/Catheters IV Catheter Type (from Nrs): Saline Lock Urinary Cath still in place: No Assessment/Plan Assessment/Plan 1. Acute hypercapnic respiratory failure on Vent - Failed CPAP trial and will most likely benefit from slow SIMV/PS weaning per Pulm - Pulmonology on board and appreciate recommendations. - Trach in proper place per CXR - continue aggressive suctioning. Patient produces a large amount of sputum normally as discussed with treating physician at [facility] 2. UTI - Urine culture grew Providencia and pseudomonas - ID consultation appreciated and on Amikacin 3. Hypotension- resolved - stable - Will continue to monitor and bolus as needed 4. Failure to thrive - PEG in place and TF running 5. Chronic vegetative state 6. Junctional rhythm - serial troponins negative - back in sinus rhythm 7. Disposition - Patient stable for discharge back to [facility] on same ventilator settings. Awaiting call back from admissions department for acceptance back. Spoke with Mother and she will try calling as well tomorrow - Plan for patient to follow up with his ENT as outpatient since unable to get patient transferred to [facility] since no beds available. - CM on board Subjective 24 Hr Interval Summary Free Text/Dictation Patient did not tolerated CPAP trial due to increase work of breathing. Per Nurse, Gtube has been leaking but appears as if loose. No acute overnight events. Exam/Review of Systems Vital Signs Vitals Vital Signs Date Time Temp Pulse Resp B/P Pulse Ox O2 Delivery O2 Flow Rate FiO2 07/21/17 13:11 98.0 55 18 91/54 99 07/21/17 11:10 30 Intake and Output 07/20/17 07/20/17 07/21/17 15:00 23:00 07:00 Intake Total 1090 ml 940 ml Output Total 200 ml 450 ml Balance 890 ml 490 ml Exam Constitutional: non-verbal, Trach connected to vent. In a chronic vegetative state. Head: atraumatic, normocephalic Neck: trach in place, no blood appreciated at site of insertion Respiratory: coarse breath sounds, diminished at bases, no wheezing Cardiovascular: nl pulses, regular rate and rhythm Gastrointestinal: soft, nondistended, BS present Musculoskeletal: Deformity with contracture of extremities Results Result Diagram: 07/21/1751 07/21/17850 Results 24 hrs Laboratory Tests Test 07/20/17 14:41 07/20/17 17:20 07/21/17 08:51 07/21/17 12:04 Amikacin Level Trough Creatine Kinase 82 Creatine Kinase Index 0.8 Creatinine Kinase MB (Mass) 0.63 Troponin I < 0.012 Amikacin Level Peak White Blood Count 5.9 Red Blood Count 4.53 L Hemoglobin 12.3 L Hematocrit 38.7 L Mean Corpuscular Volume 85.4 Mean Corpuscular Hemoglobin 27.2 L Mean Corpuscular Hemoglobin Concent 31.8 L Red Cell Distribution Width 14.7 H Platelet Count 174 Mean Platelet Volume 12.3 H Neutrophils % 51.0 Lymphocytes % 26.9 Monocytes % 12.5 Eosinophils % 8.8 H Basophils % 0.5 Nucleated Red Blood Cells % 0.0 Neutrophils # 3.0 Lymphocytes # 1.6 Monocytes # 0.7 Eosinophils # 0.5 Basophils # 0.0 Nucleated Red Blood Cells # 0.0 Sodium Level 141 Potassium Level 4.5 Chloride Level 107 Carbon Dioxide Level 25 Anion Gap 14 Blood Urea Nitrogen 8 Creatinine 0.49 L Glucose Level 91 Calcium Level 8.5 Phosphorus Level 4.4 Magnesium Level 1.8 Albumin 3.4 Lab Scanned Report REFERENCE LAB Medications Medications Current Medications Lorazepam (Ativan) 0.5 mg Q6H PRN IV ANXIETY Last administered on 07/17/17 14: 48; Admin Dose 0.5 MG; Start 07/15/17 at 06:00 Ondansetron HCl (Zofran Inj) 4 mg Q6H PRN IV NAUSEA AND/OR VOMITING; Start at 06:00 Morphine Sulfate (morphine) 2 mg Q4H PRN IV PAIN LEVEL 7-10 Last administered on 07/17/17 02:54; Admin Dose 2 MG; Start 07/15/17 at 06:00 Famotidine (Pepcid Iv) 20 mg Q12 IV Last administered on 07/15/17 08:24; Admin Dose 20 MG; Start 07/15/17 at 09:00; Status Future Hold Acetaminophen (Tylenol Liquid) 650 mg Q4 PRN PEG PAIN LEVEL 1-3 OR FEVER Last administered on 07/16/17 04:33; Admin Dose 650 MG; Start 07/16/17 at 04:30 Baclofen (Lioresal) 25 mg Q6 GTB Last administered on 07/21/17 12:06; Admin Dose 25 MG; Start 07/17/17 at 12:00 Clonidine HCl (Catapres-Tts 1 Patch) 1 patch Q7D TRANSDERM Last administered on 07/18/17 08:38; Admin Dose 1 PATCH; Start 07/17/17 at 11:30 Diazepam (Valium) 3 mg Q6 GTB Last administered on 07/21/17 12:06; Admin Dose 3 MG; Start 07/17/17 at 12:00 Erythromycin Ethylsuccinate (E.e.s (Ped)) 120 mg Q6 GTB Last administered on 12:06; Admin Dose 120 MG; Start 07/17/17 at 18:00 Glycopyrrolate (Robinul) 0.25 mg BID GTB Last administered on 07/21/17 09:18; Admin Dose 0.25 MG; Start 07/17/17 at 11:30 Levetiracetam (Keppra Liq (Ped)) 1,750 mg BID GTB Last administered on 09:19; Admin Dose 1,750 MG; Start 07/17/17 at 11:30 Montelukast Sodium (Singulair) 10 mg QHS GTB Last administered on 07/20/17 21: 02; Admin Dose 10 MG; Start 07/17/17 at 21:00 Neomycin/ Polymyxin/ Dexamethasone (Maxitrol Oph Oint) 1 applic QPM BOTH EYES Last administered on 07/18/17 21:25; Admin Dose 1 APPLIC; Start 07/17/17 at 21: 00 Polyethylene Glycol (Miralax) 17 gm DAILY PRN PO CONSTIPATION Last administered on 07/19/17 17:31; Admin Dose 17 GM; Start 07/17/17 at 11:30 Eye Lubricant (Artificial Tears Oph) 1 drop PRN PRN BOTH EYES DRY EYES Last administered on 07/17/17 22:44; Admin Dose 1 DROP; Start 07/17/17 at 11:30 Valproate Sodium (Depakene Liquid Cup) 250 mg TID GTB Last administered on 07/21 12:06; Admin Dose 250 MG; Start 11/1/17 at 13:00 Cholecalciferol (Vitamin D) 2,000 unit DAILY GTB Last administered on 09:19; Admin Dose 2,000 UNIT; Start 07/18/17 at 09:00 Lansoprazole (Prevacid) 30 mg DAILY@06 GTB Last administered on 07/21/17 05:36 ; Admin Dose 30 MG; Start 07/18/17 at 06:00 Multivitamins (Multivitamin) 30 ml DAILY GTB Last administered on 07/21/17 09: 19; Admin Dose 30 ML; Start 07/18/17 at 09:00 Eye Lubricant (Akwa Oint) 1 applic Q4H BOTH EYES Last administered on 12:07; Admin Dose 1 APPLIC; Start 07/17/17 at 13:00 Fluticasone Propionate (Flonase 0.05% Nasal) 1 spray DAILY NASAL Last administered on 07/21/17 09:19; Admin Dose 1 SPRAY; Start 07/18/17 at 09:00 Miscellaneous Information (*Order Clarification Bulletin) PROSTAT IS NOT A PHARM... Q8H XX ; Start 07/17/17 at 14:30 Amikacin Sulfate AMIKACIN PER PHARMACY NOTE XX ; Start 07/19/17 at 12:30 Amikacin Sulfate/ Sodium Chloride (Amikacin/NS) 100 ml @ 102 mls/hr Q12H IVPB ; Start 07/21/17 at 15:30 JIM NANCE MD Jul 21, 2017 13:33
--- NOTE | 2017-07-21 16:13 | CONS ---
Date/Time of Note Date/Time of Note DATE: 07/21/17 TIME: 16:11 Consult Date/Type/Reason Admit Date/Time Jul 14, 2017 at 21:38 Initial Consult Date 07/16/17 Type of Consultation: Pulmonary Ordering Provider: LIBRA GARCIA MD Subjective Did not tolerate CPAP/PS weaning yesterday with increased work of breathing. Objective Vital Signs Date Time Temp Pulse Resp B/P Pulse Ox O2 Delivery O2 Flow Rate FiO2 07/21/17 13:30 54 18 99 30 07/21/17 13:11 98.0 91/54 Intake and Output 07/20/17 07/20/17 07/21/17 15:00 23:00 07:00 Intake Total 1090 ml 940 ml Output Total 200 ml 450 ml Balance 890 ml 490 ml Exam HEENT: Neck supple; no JVD; no LAD; trach clean CVS: RRR, S1 and S2 CHEST: Clear ABD: Soft, NT, + BS EXT: No c/c/e Results/Medications Result Diagram: 07/21/17 0851 07/21/17 0851 Results 24 hrs Laboratory Tests Test 07/20/17 17:20 07/21/17 08:51 07/21/17 12:04 Creatine Kinase 82 Creatine Kinase Index 0.8 Creatinine Kinase MB (Mass) 0.63 Troponin I < 0.012 Amikacin Level Peak White Blood Count 5.9 Red Blood Count 4.53 L Hemoglobin 12.3 L Hematocrit 38.7 L Mean Corpuscular Volume 85.4 Mean Corpuscular Hemoglobin 27.2 L Mean Corpuscular Hemoglobin Concent 31.8 L Red Cell Distribution Width 14.7 H Platelet Count 174 Mean Platelet Volume 12.3 H Neutrophils % 51.0 Lymphocytes % 26.9 Monocytes % 12.5 Eosinophils % 8.8 H Basophils % 0.5 Nucleated Red Blood Cells % 0.0 Neutrophils # 3.0 Lymphocytes # 1.6 Monocytes # 0.7 Eosinophils # 0.5 Basophils # 0.0 Nucleated Red Blood Cells # 0.0 Sodium Level 141 Potassium Level 4.5 Chloride Level 107 Carbon Dioxide Level 25 Anion Gap 14 Blood Urea Nitrogen 8 Creatinine 0.49 L Glucose Level 91 Calcium Level 8.5 Phosphorus Level 4.4 Magnesium Level 1.8 Albumin 3.4 Lab Scanned Report REFERENCE LAB Medications Current Medications Lorazepam (Ativan) 0.5 mg Q6H PRN IV ANXIETY Last administered on 07/17/17 14: 48; Admin Dose 0.5 MG; Start 07/15/17 at 06:00 Ondansetron HCl (Zofran Inj) 4 mg Q6H PRN IV NAUSEA AND/OR VOMITING; Start at 06:00 Morphine Sulfate (morphine) 2 mg Q4H PRN IV PAIN LEVEL 7-10 Last administered on 07/17/17 02:54; Admin Dose 2 MG; Start 07/15/17 at 06:00 Famotidine (Pepcid Iv) 20 mg Q12 IV Last administered on 07/15/17 08:24; Admin Dose 20 MG; Start 07/15/17 at 09:00; Status Future Hold Acetaminophen (Tylenol Liquid) 650 mg Q4 PRN PEG PAIN LEVEL 1-3 OR FEVER Last administered on 07/16/17 04:33; Admin Dose 650 MG; Start 07/16/17 at 04:30 Baclofen (Lioresal) 25 mg Q6 GTB Last administered on 07/21/17 12:06; Admin Dose 25 MG; Start 07/17/17 at 12:00 Clonidine HCl (Catapres-Tts 1 Patch) 1 patch Q7D TRANSDERM Last administered on 07/18/17 08:38; Admin Dose 1 PATCH; Start 07/17/17 at 11:30 Diazepam (Valium) 3 mg Q6 GTB Last administered on 07/21/17 12:06; Admin Dose 3 MG; Start 07/17/17 at 12:00 Erythromycin Ethylsuccinate (E.e.s (Ped)) 120 mg Q6 GTB Last administered on 12:06; Admin Dose 120 MG; Start 07/17/17 at 18:00 Glycopyrrolate (Robinul) 0.25 mg BID GTB Last administered on 07/21/17 09:18; Admin Dose 0.25 MG; Start 07/17/17 at 11:30 Levetiracetam (Keppra Liq (Ped)) 1,750 mg BID GTB Last administered on 09:19; Admin Dose 1,750 MG; Start 07/17/17 at 11:30 Montelukast Sodium (Singulair) 10 mg QHS GTB Last administered on 07/20/17 21: 02; Admin Dose 10 MG; Start 07/17/17 at 21:00 Neomycin/ Polymyxin/ Dexamethasone (Maxitrol Oph Oint) 1 applic QPM BOTH EYES Last administered on 07/18/17 21:25; Admin Dose 1 APPLIC; Start 07/17/17 at 21: 00 Polyethylene Glycol (Miralax) 17 gm DAILY PRN PO CONSTIPATION Last administered on 07/19/17 17:31; Admin Dose 17 GM; Start 07/17/17 at 11:30 Eye Lubricant (Artificial Tears Oph) 1 drop PRN PRN BOTH EYES DRY EYES Last administered on 07/17/17 22:44; Admin Dose 1 DROP; Start 07/17/17 at 11:30 Valproate Sodium (Depakene Liquid Cup) 250 mg TID GTB Last administered on 07/21 12:06; Admin Dose 250 MG; Start 07/17/17 at 13:00 Cholecalciferol (Vitamin D) 2,000 unit DAILY GTB Last administered on 09:19; Admin Dose 2,000 UNIT; Start 07/18/17 at 09:00 Lansoprazole (Prevacid) 30 mg DAILY@06 GTB Last administered on 07/21/17 05:36 ; Admin Dose 30 MG; Start 07/18/17 at 06:00 Multivitamins (Multivitamin) 30 ml DAILY GTB Last administered on 07/21/17 09: 19; Admin Dose 30 ML; Start 07/18/17 at 09:00 Eye Lubricant (Akwa Oint) 1 applic Q4H BOTH EYES Last administered on 12:07; Admin Dose 1 APPLIC; Start 07/17/17 at 13:00 Fluticasone Propionate (Flonase 0.05% Nasal) 1 spray DAILY NASAL Last administered on 07/21/17 09:19; Admin Dose 1 SPRAY; Start 07/18/17 at 09:00 Miscellaneous Information (*Order Clarification Bulletin) KATIE IS NOT A PHARM... Q8H XX ; Start 07/17/17 at 14:30 Amikacin Sulfate AMIKACIN PER PHARMACY NOTE XX ; Start 07/19/17 at 12:30 Amikacin Sulfate/ Sodium Chloride (Amikacin/NS) 100 ml @ 102 mls/hr Q12H IVPB Last administered on 07/21/17t 15:03; Admin Dose 102 MLS/HR; Start 07/21/17 at 15:30 Assessment/Plan Additional Assessment/Plan IMP 1. VDRF/status post tracheostomy and dislodgement. Now replaced on mechanical ventilation previously patient was on cool aerosol 2. Chronic encephalopathy persistent vegetative state RECS: 1. May benefit from slow SIMV/PS weaning, therefore reasonable candidate for [facility]. SUSAN MURRELL MD Jul 21, 2017 16:13
--- NOTE | 2017-07-21 17:30 | CONS ---
Date/Time of Note Date/Time of Note DATE: 07/21/17 TIME: 17:17 Assessment/Plan Assessment/Plan Chief Complaint/Hosp Course ID PROGRESS NOTE CURRENT ABX: -> Amikacin #3 s/p Vanco IV + Cefepime 24H INTERVAL SUMMARY * Chronic vegetative, non-communicative on the Vent * DC Planning to [facility] in process * 07/16/17 CXR:. Hypoventilatory changes with prominence of the interstitial markings. No focal consolidation or pleural effusion. Superimposed infectious process cannot be excluded. * MICRO * URINE CX: URINE CULTURE Final Organism 1 PROVIDENCIA STUARTII COLONY COUNT 10,000 - 20,000 CFU/ml Organism 2 PSEUDOMONAS AERUGINOSA COLONY COUNT 10,000 - 20,000 CFU/ml P STUARTII P.AERUG M.I.C. RX M.I.C. RX --------- --- --------- --- AMIKACIN <=2 S 16 S AZTREONAM I CEFEPIME <=1 S 32 R CEFOTAXIME R CEFTAZIDIME 32 R CIPROFLOXACIN I >=4 R GENTAMICIN R 8 I IMIPENEM 2 S LEVOFLOXACIN 4 I >=8 R NITROFURANTOIN 128 R TOBRAMYCIN R <=1 S TRIMETHOPRIM/SULFAMETHOXAZOLE >=320 R PIPERACILLIN/TAZOBACTAM R PHYSICAL EXAMINATION: GENERAL: VSS, no fevers, NAD HEENT: Unremarkable NECK: Supple, full ROM CHEST: Equal chest rise bilaterally, without dyspnea on room air CV: Radial pulse RRR ABD: Soft, peg : Deferred EXT: Warm, no C/C/E SKIN: No rash, no diaphoresis ID ASSESSMENT 21 yo M PMHx cerebral palsy w/spastic quad, hx head trauma injury, chronic vegetative, SZS admit with: 1. Acute hypercapnic respiratory failure * - Per mother patient was admitted to [facility] 1 month ago for pneumonia and questions why he is presently at [facility] 2. Hypotension => combination of autonomic dysreflexia + dehydration + UTI + ? 3. UTI URINE CULTURE Final Organism 1 PROVIDENCIA STUARTII COLONY COUNT 10,000 - 20,000 CFU/ml Organism 2 PSEUDOMONAS AERUGINOSA COLONY COUNT 10,000 - 20,000 CFU/ml 4. Hx of aspiration PNA * 07/16/17 CXR: 1. Hypoventilatory changes with prominence of the interstitial markings. No focal consolidation or pleural effusion. Superimposed infectious process cannot be excluded. 5. Hypernatremia- Most likely secondary to dehydration 6. Failure to thrive - PEG in place 7. Bacteremia -> BCx on admission growing skin contaminants, not true sepsis * BLOOD CULTURE Final Organism 1 COAGULASE NEGATIVE STAPH Organism 2 PROPIONIBACTERIUM SPECIES CURRENT ABX: -> Amikacin #3 s/p Vanco IV + Cefepime ID RECOMMENDATIONS 1. Anticipate DC ABX on Saturday -- has received adequate ABX for low colony UTI . Problems: Consultation Date/Type/Reason Admit Date/Time Jul 14, 2017 at 21:38 Initial Consult Date 07/16/17 Type of Consultation: ID Referring Provider: LIBRA GARCIA MD Exam/Review of Systems Vital Signs Vitals Vital Signs Date Time Temp Pulse Resp B/P Pulse Ox O2 Delivery O2 Flow Rate FiO2 07/21/17 16:50 58 07/21/17 15:20 18 99 30 07/21/17 13:11 98.0 91/54 Intake and Output 07/20/17 07/20/17 07/21/17 15:00 23:00 07:00 Intake Total 1090 ml 940 ml Output Total 200 ml 450 ml Balance 890 ml 490 ml Results Result Diagram: 07/21/17 0851 07/21/17 0851 Results 24 hrs Laboratory Tests Test 07/20/17 17:20 07/21/17 08:51 07/21/17 12:04 Creatine Kinase 82 Creatine Kinase Index 0.8 Creatinine Kinase MB (Mass) 0.63 Troponin I < 0.012 Amikacin Level Peak White Blood Count 5.9 Red Blood Count 4.53 L Hemoglobin 12.3 L Hematocrit 38.7 L Mean Corpuscular Volume 85.4 Mean Corpuscular Hemoglobin 27.2 L Mean Corpuscular Hemoglobin Concent 31.8 L Red Cell Distribution Width 14.7 H Platelet Count 174 Mean Platelet Volume 12.3 H Neutrophils % 51.0 Lymphocytes % 26.9 Monocytes % 12.5 Eosinophils % 8.8 H Basophils % 0.5 Nucleated Red Blood Cells % 0.0 Neutrophils # 3.0 Lymphocytes # 1.6 Monocytes # 0.7 Eosinophils # 0.5 Basophils # 0.0 Nucleated Red Blood Cells # 0.0 Sodium Level 141 Potassium Level 4.5 Chloride Level 107 Carbon Dioxide Level 25 Anion Gap 14 Blood Urea Nitrogen 8 Creatinine 0.49 L Glucose Level 91 Calcium Level 8.5 Phosphorus Level 4.4 Magnesium Level 1.8 Albumin 3.4 Lab Scanned Report REFERENCE LAB Medications Medications Current Medications Lorazepam (Ativan) 0.5 mg Q6H PRN IV ANXIETY Last administered on 07/17/17 14: 48; Admin Dose 0.5 MG; Start 07/15/17 at 06:00 Ondansetron HCl (Zofran Inj) 4 mg Q6H PRN IV NAUSEA AND/OR VOMITING; Start at 06:00 Morphine Sulfate (morphine) 2 mg Q4H PRN IV PAIN LEVEL 7-10 Last administered on 07/17/17 02:54; Admin Dose 2 MG; Start 07/15/17 at 06:00 Famotidine (Pepcid Iv) 20 mg Q12 IV Last administered on 07/15/17 08:24; Admin Dose 20 MG; Start 07/15/17 at 09:00; Status Future Hold Acetaminophen (Tylenol Liquid) 650 mg Q4 PRN PEG PAIN LEVEL 1-3 OR FEVER Last administered on 07/16/17 04:33; Admin Dose 650 MG; Start 07/16/17 at 04:30 Baclofen (Lioresal) 25 mg Q6 GTB Last administered on 07/21/17 12:06; Admin Dose 25 MG; Start 07/17/17 at 12:00 Clonidine HCl (Catapres-Tts 1 Patch) 1 patch Q7D TRANSDERM Last administered on 07/18/17 08:38; Admin Dose 1 PATCH; Start 07/17/17 at 11:30 Diazepam (Valium) 3 mg Q6 GTB Last administered on 07/21/17 12:06; Admin Dose 3 MG; Start 07/17/17 at 12:00 Erythromycin Ethylsuccinate (E.e.s (Ped)) 120 mg Q6 GTB Last administered on 12:06; Admin Dose 120 MG; Start 07/17/17 at 18:00 Glycopyrrolate (Robinul) 0.25 mg BID GTB Last administered on 07/21/17 09:18; Admin Dose 0.25 MG; Start 07/17/17 at 11:30 Levetiracetam (Keppra Liq (Ped)) 1,750 mg BID GTB Last administered on 09:19; Admin Dose 1,750 MG; Start 07/17/17 at 11:30 Montelukast Sodium (Singulair) 10 mg QHS GTB Last administered on 07/20/17 21: 02; Admin Dose 10 MG; Start 07/17/17 at 21:00 Neomycin/ Polymyxin/ Dexamethasone (Maxitrol Oph Oint) 1 applic QPM BOTH EYES Last administered on 07/18/17 21:25; Admin Dose 1 APPLIC; Start 07/17/17 at 21: 00 Polyethylene Glycol (Miralax) 17 gm DAILY PRN PO CONSTIPATION Last administered on 07/19/17 17:31; Admin Dose 17 GM; Start 07/17/17 at 11:30 Eye Lubricant (Artificial Tears Oph) 1 drop PRN PRN BOTH EYES DRY EYES Last administered on 07/17/17 22:44; Admin Dose 1 DROP; Start 07/17/17 at 11:30 Valproate Sodium (Depakene Liquid Cup) 250 mg TID GTB Last administered on 07/21 12:06; Admin Dose 250 MG; Start 07/17/17 at 13:00 Cholecalciferol (Vitamin D) 2,000 unit DAILY GTB Last administered on 09:19; Admin Dose 2,000 UNIT; Start 07/18/17 at 09:00 Lansoprazole (Prevacid) 30 mg DAILY@06 GTB Last administered on 07/21/17 05:36 ; Admin Dose 30 MG; Start 07/18/17 at 06:00 Multivitamins (Multivitamin) 30 ml DAILY GTB Last administered on 07/21/17 09: 19; Admin Dose 30 ML; Start 07/18/17 at 09:00 Eye Lubricant (Akwa Oint) 1 applic Q4H BOTH EYES Last administered on 12:07; Admin Dose 1 APPLIC; Start 07/17/17 at 13:00 Fluticasone Propionate (Flonase 0.05% Nasal) 1 spray DAILY NASAL Last administered on 07/21/17 09:19; Admin Dose 1 SPRAY; Start 07/18/17 at 09:00 Miscellaneous Information (*Order Clarification Bulletin) PROSTAT IS NOT A PHARM... Q8H XX ; Start 07/17/17 at 14:30 Amikacin Sulfate AMIKACIN PER PHARMACY NOTE XX ; Start 07/19/17 at 12:30 Amikacin Sulfate/ Sodium Chloride (Amikacin/NS) 100 ml @ 102 mls/hr Q12H IVPB Last administered on 07/21/17 15:03; Admin Dose 102 MLS/HR; Start 07/21/17 at 15:30 JT CRUZ OIL AGENT Jul 21, 2017 17:27
[2017-07-21] MEDS: NEOMYC/POLYMYX/DEXAM 3.5GM OPH OINT BOTH EYES SCH (21:00)
[2017-07-21] MEDS: MONTELUKAST 10 MG TAB GTB SCH (21:09)
[2017-07-22] VITALS (24 sets, daily range): BP systolic 97–125; BP diastolic 51–89; PULSE 55–100; RESP 18
[2017-07-22] MEDS: BACLOFEN 10 MG TAB GTB SCH ×4 (00:21→18:00)
[2017-07-22] MEDS: DIAZEPAM 2 MG TAB GTB SCH ×4 (00:21→18:00)
[2017-07-22] MEDS: OCULAR LUBRICANT 3.5 GM OPH OINT BOTH EYES SCH ×6 (01:00→22:11)
[2017-07-22] MEDS: ALBUTEROL/IPRATROPIUM (NEB) 3 ML AMP HHN PRN ×4 (01:37→23:31)
[2017-07-22] MEDS: AMIKACIN IVPB SCH ×2 (03:17→15:50)
[2017-07-22] MEDS: SOD CHLORIDE 0.9% IVPB SCH ×2 (03:17→15:50)
[2017-07-22] MEDS: ERYTHROMYCIN ETHYL SUCC (80 MG/ML PO SYG) GTB SCH ×4 (06:00→18:00)
[2017-07-22] MEDS: LANSOPRAZOLE 30 MG CAP GTB SCH (06:00)
[2017-07-22] MEDS: [UNRECOGNIZED DRUG - REMARK] XX SCH ×2 (06:07→13:56)
--- NOTE | 2017-07-22 08:14 | PN ---
DATE: 07/20/2017 INFECTIOUS DISEASE PROGRESS NOTE SUBJECTIVE: No acute events overnight. Patient is lying comfortably in bed. He is nonverbal, nonc ommunicative. No fevers. LABORATORY DATA: WBC 5.4. No shift, no bands. BUN 11, creatinine 0.48. MICROBIOLOGY: Blood culture on 07/14 grew staph species. Repeat blood cultures negative. Urine cu lture growing multidrug resistant pseudomonas and providencia, both susceptible to amikacin. INDWELLINGS: The patient has trach, PICC. ANTIMICROBIALS: He has been on vancomycin and amikacin. DIAGNOSTICS: Chest x-ray on admission revealed no focal consolidation. PHYSICAL EXAMINATION: GENERAL: Chronically ill-appearing, debilitated young man who is in no distress. HEENT: Head is large in proportion to the body. NECK: Supple. CHEST: Rise is symmetrical. Breath sounds diminished at bases. HEART: S1, S2. ABDOMEN: Soft, bowel sounds present. EXTREMITIES: Wasted, contractures, without cyanosis. ASSESSMENT: 1. Polymicrobial urinary tract infection, possibly colonized. 2. Staph bacteremia, likely contaminant. 3. Chronic respiratory failure. 4. Persistent vegetative state. PLAN: The patient remained stable. Continue present care. Discontinue vancomycin. Monitor renal function closely. Dictated By: JEIMY LYNCH GENERAL ACTIVITIES THERAPIST for ROSARIO GRACIA/WERNER Conf#: [id number] DID#: [id number]
--- NOTE | 2017-07-22 08:14 | PN ---
DATE: 07/20/2017 INFECTIOUS DISEASE PROGRESS NOTE SUBJECTIVE: No acute events overnight. Patient is lying comfortably in bed. He is nonverbal, nonc ommunicative. No fevers. LABORATORY DATA: WBC 5.4. No shift, no bands. BUN 11, creatinine 0.48. MICROBIOLOGY: Blood culture on 07/14 grew staph species. Repeat blood cultures negative. Urine cu lture growing multidrug resistant pseudomonas and providencia, both susceptible to amikacin. INDWELLINGS: The patient has trach, PICC. ANTIMICROBIALS: He has been on vancomycin and amikacin. DIAGNOSTICS: Chest x-ray on admission revealed no focal consolidation. PHYSICAL EXAMINATION: GENERAL: Chronically ill-appearing, debilitated young man who is in no distress. HEENT: Head is large in proportion to the body. NECK: Supple. CHEST: Rise is symmetrical. Breath sounds diminished at bases. HEART: S1, S2. ABDOMEN: Soft, bowel sounds present. EXTREMITIES: Wasted, contractures, without cyanosis. ASSESSMENT: 1. Polymicrobial urinary tract infection, possibly colonized. 2. Staph bacteremia, likely contaminant. 3. Chronic respiratory failure. 4. Persistent vegetative state. PLAN: The patient remained stable. Continue present care. Discontinue vancomycin. Monitor renal function closely. Dictated By: JEIMY LYNCH ACID PURIFICATION EQUIPMENT OPERATOR for ROSARIO GRACIA/WERNER Conf#: [id number] DID#: [id number]
--- NOTE | 2017-07-22 08:14 | PN ---
DATE: 07/20/2017 INFECTIOUS DISEASE PROGRESS NOTE SUBJECTIVE: No acute events overnight. Patient is lying comfortably in bed. He is nonverbal, nonc ommunicative. No fevers. LABORATORY DATA: WBC 5.4. No shift, no bands. BUN 11, creatinine 0.48. MICROBIOLOGY: Blood culture on 07/14 grew staph species. Repeat blood cultures negative. Urine cu lture growing multidrug resistant pseudomonas and providencia, both susceptible to amikacin. INDWELLINGS: The patient has trach, PICC. ANTIMICROBIALS: He has been on vancomycin and amikacin. DIAGNOSTICS: Chest x-ray on admission revealed no focal consolidation. PHYSICAL EXAMINATION: GENERAL: Chronically ill-appearing, debilitated young man who is in no distress. HEENT: Head is large in proportion to the body. NECK: Supple. CHEST: Rise is symmetrical. Breath sounds diminished at bases. HEART: S1, S2. ABDOMEN: Soft, bowel sounds present. EXTREMITIES: Wasted, contractures, without cyanosis. ASSESSMENT: 1. Polymicrobial urinary tract infection, possibly colonized. 2. Staph bacteremia, likely contaminant. 3. Chronic respiratory failure. 4. Persistent vegetative state. PLAN: The patient remained stable. Continue present care. Discontinue vancomycin. Monitor renal function closely. Dictated By: JEIMY LYNCH TIPPING MACHINE OPERATOR AUTOMATIC for ROSARIO GRACIA/WERNER Conf#: [id number] DID#: [id number]
[2017-07-22] MEDS: FLUTICASONE 0.05% 16 GM NAS SPRAY NASAL SCH (09:03)
[2017-07-22] MEDS: CHOLECALCIFEROL 1,000 UNIT TAB GTB SCH (09:04)
[2017-07-22] MEDS: GLYCOPYRROLATE 1 MG TAB GTB SCH ×2 (09:04→22:11)
[2017-07-22] MEDS: LEVETIRACETAM (100 MG/ML PO SYG) GTB SCH ×2 (09:05→22:10)
[2017-07-22] MEDS: MULTIVITAMINS 30 ML CUP GTB SCH (09:05)
[2017-07-22] MEDS: VALPROIC ACID LIQUID CUP 250 MG/5 ML CUP GTB SCH ×3 (09:06→22:10)
--- NOTE | 2017-07-22 14:10 | CONS ---
Date/Time of Note Date/Time of Note DATE: 07/22/17 TIME: 14:09 Consult Date/Type/Reason Admit Date/Time Jul 14, 2017 at 21:38 Initial Consult Date 07/16/17 Type of Consultation: Pulmonary Ordering Provider: LIBRA GARCIA MD Subjective Comfortable no new events. Objective Vital Signs Date Time Temp Pulse Resp B/P Pulse Ox O2 Delivery O2 Flow Rate FiO2 07/22/17 13:33 65 18 97 30 07/22/17 11:43 99.0 118/70 Intake and Output 07/21/17 07/21/17 07/22/17 15:00 23:00 07:00 Intake Total 940 ml 840 ml Output Total 400 ml 700 ml Balance 540 ml 140 ml Exam GENERAL: Young gentleman chronically ill comfortable at rest VITAL SIGNS: per chart NECK: Supple. No JVD or lymphadenopathy. CARDIAC EXAM: S1, S2. No added sounds or murmurs. CHEST: clear bilaterally, No added sounds, rales or wheezes ABDOMEN: Soft, nontender. No guarding or rebound. EXTREMITIES: No cyanosis, clubbing or edema. NEUROLOGIC: Generalized weakness. No focal deficits. Results/Medications Result Diagram: 07/22/17 1159 07/22/17 1159 Results 24 hrs Laboratory Tests Test 07/22/17 11:59 White Blood Count 5.8 Red Blood Count 4.86 Hemoglobin 13.1 L Hematocrit 40.8 L Mean Corpuscular Volume 84.0 Mean Corpuscular Hemoglobin 27.0 L Mean Corpuscular Hemoglobin Concent 32.1 Red Cell Distribution Width 14.8 H Platelet Count 199 Mean Platelet Volume 12.5 H Neutrophils % 44.5 Lymphocytes % 33.9 Monocytes % 11.9 Eosinophils % 8.8 H Basophils % 0.7 Nucleated Red Blood Cells % 0.0 Neutrophils # 2.6 Lymphocytes # 2.0 Monocytes # 0.7 Eosinophils # 0.5 Basophils # 0.0 Nucleated Red Blood Cells # 0.0 Sodium Level 139 Potassium Level 4.6 Chloride Level 103 Carbon Dioxide Level 24 Anion Gap 17 H Blood Urea Nitrogen 8 Creatinine 0.44 L Glucose Level 99 Calcium Level 9.0 Phosphorus Level 4.6 Magnesium Level 1.8 Albumin 3.8 Medications Current Medications Lorazepam (Ativan) 0.5 mg Q6H PRN IV ANXIETY Last administered on 07/17/17t 14: 48; Admin Dose 0.5 MG; Start 07/15/17 at 06:00 Ondansetron HCl (Zofran Inj) 4 mg Q6H PRN IV NAUSEA AND/OR VOMITING; Start at 06:00 Morphine Sulfate (morphine) 2 mg Q4H PRN IV PAIN LEVEL 7-10 Last administered on 07/17/17 02:54; Admin Dose 2 MG; Start 07/15/17 at 06:00 Famotidine (Pepcid Iv) 20 mg Q12 IV Last administered on 07/15/17 08:24; Admin Dose 20 MG; Start 07/15/17 at 09:00; Status Future Hold Acetaminophen (Tylenol Liquid) 650 mg Q4 PRN PEG PAIN LEVEL 1-3 OR FEVER Last administered on 07/16/17 04:33; Admin Dose 650 MG; Start 07/16/17 at 04:30 Baclofen (Lioresal) 25 mg Q6 GTB Last administered on 07/22/17 12:39; Admin Dose 25 MG; Start 07/17/17 at 12:00 Clonidine HCl (Catapres-Tts 1 Patch) 1 patch Q7D TRANSDERM Last administered on 07/18/17 08:38; Admin Dose 1 PATCH; Start 07/17/17 at 11:30 Diazepam (Valium) 3 mg Q6 GTB Last administered on 07/22/17 12:39; Admin Dose 3 MG; Start 07/17/17 at 12:00 Erythromycin Ethylsuccinate (E.e.s (Ped)) 120 mg Q6 GTB Last administered on 12:40; Admin Dose 120 MG; Start 07/17/17 at 18:00 Glycopyrrolate (Robinul) 0.25 mg BID GTB Last administered on 07/22/17 09:04; Admin Dose 0.25 MG; Start 07/17/17 at 11:30 Levetiracetam (Keppra Liq (Ped)) 1,750 mg BID GTB Last administered on 09:05; Admin Dose 1,750 MG; Start 07/17/17 at 11:30 Montelukast Sodium (Singulair) 10 mg QHS GTB Last administered on 07/21/17 21: 09; Admin Dose 10 MG; Start 07/17/17 at 21:00 Neomycin/ Polymyxin/ Dexamethasone (Maxitrol Oph Oint) 1 applic QPM BOTH EYES Last administered on 07/18/17 21:25; Admin Dose 1 APPLIC; Start 07/17/17 at 21: 00 Polyethylene Glycol (Miralax) 17 gm DAILY PRN PO CONSTIPATION Last administered on 07/19/17 17:31; Admin Dose 17 GM; Start 07/17/17 at 11:30 Eye Lubricant (Artificial Tears Oph) 1 drop PRN PRN BOTH EYES DRY EYES Last administered on 07/17/17 22:44; Admin Dose 1 DROP; Start 07/17/17 at 11:30 Valproate Sodium (Depakene Liquid Cup) 250 mg TID GTB Last administered on 07/22 12:38; Admin Dose 250 MG; Start 07/17/17 at 13:00 Cholecalciferol (Vitamin D) 2,000 unit DAILY GTB Last administered on 09:04; Admin Dose 2,000 UNIT; Start 07/18/17 at 09:00 Lansoprazole (Prevacid) 30 mg DAILY@06 GTB Last administered on 07/22/17 06:00 ; Admin Dose 30 MG; Start 07/18/17 at 06:00 Multivitamins (Multivitamin) 30 ml DAILY GTB Last administered on 07/22/17 09: 05; Admin Dose 30 ML; Start 07/18/17 at 09:00 Eye Lubricant (Akwa Oint) 1 applic Q4H BOTH EYES Last administered on 12:40; Admin Dose 1 APPLIC; Start 07/17/17 at 13:00 Fluticasone Propionate (Flonase 0.05% Nasal) 1 spray DAILY NASAL Last administered on 07/22/17 09:03; Admin Dose 1 SPRAY; Start 07/18/17 at 09:00 Miscellaneous Information (*Order Clarification Bulletin) PROSTAT IS NOT A PHARM... Q8H XX ; Start 07/17/17 at 14:30 Amikacin Sulfate AMIKACIN PER PHARMACY NOTE XX ; Start 07/19/17 at 12:30 Amikacin Sulfate/ Sodium Chloride (Amikacin/NS) 100 ml @ 102 mls/hr Q12H IVPB Last administered on 07/22/17 03:17; Admin Dose 102 MLS/HR; Start 07/21/17 at 15:30 Assessment/Plan Chief Complaint/Hosp Course Additional Assessment/Plan IMP 1. VDRF/status post tracheostomy and dislodgement. Now replaced on mechanical ventilation previously patient was on cool aerosol 2. Chronic encephalopathy persistent vegetative state RECS: 1. May benefit from slow SIMV/PS weaning, therefore reasonable candidate for [place]. Switch to pressure control ventilation for transfer purposes Problems: ARACELY AYALA MD, [facility] Jul 22, 2017 14:10
[2017-07-22] MEDS: NEOMYC/POLYMYX/DEXAM 3.5GM OPH OINT BOTH EYES SCH (21:30)
[2017-07-22] MEDS: MONTELUKAST 10 MG TAB GTB SCH (22:11)
[2017-07-23] VITALS (23 sets, daily range): BP systolic 88–117; BP diastolic 53–82; PULSE 49–55; RESP 16–20
[2017-07-23] MEDS: ERYTHROMYCIN ETHYL SUCC (80 MG/ML PO SYG) GTB SCH ×4 (01:32→17:16)
[2017-07-23] MEDS: BACLOFEN 10 MG TAB GTB SCH ×4 (01:32→17:16)
[2017-07-23] MEDS: OCULAR LUBRICANT 3.5 GM OPH OINT BOTH EYES SCH ×6 (01:33→21:30)
[2017-07-23] MEDS: DIAZEPAM 2 MG TAB GTB SCH ×4 (01:48→17:17)
[2017-07-23] MEDS: ALBUTEROL/IPRATROPIUM (NEB) 3 ML AMP HHN PRN ×4 (02:22→23:11)
[2017-07-23] MEDS: SOD CHLORIDE 0.9% IVPB SCH ×2 (05:21→15:23)
[2017-07-23] MEDS: AMIKACIN IVPB SCH ×2 (05:21→15:23)
[2017-07-23] MEDS: LANSOPRAZOLE 30 MG CAP GTB SCH (06:27)
--- NOTE | 2017-07-23 09:18 | PN ---
Date/Time of Note Date/Time of Note DATE: 07/23/17 TIME: 09:16 Assessment/Plan VTE Prophylaxis VTE Prophylaxis Intervention: heparin Lines/Catheters IV [facility] Urinary Cath still in place: No Assessment/Plan Chief Complaint/Hosp Course Assessment/Plan 1. Acute hypercapnic respiratory failure on Vent - Failed CPAP trial and will most likely benefit from slow SIMV/PS weaning per Pulm - Pulmonology on board and appreciate recommendations. - Trach in proper place per CXR - continue aggressive suctioning. Patient produces a large amount of sputum normally as discussed with treating physician at [facility] 2. UTI - Urine culture grew Providencia and pseudomonas - ID consultation appreciated and on Amikacin 3. Hypotension- resolved - stable - Will continue to monitor and bolus as needed 4. Failure to thrive - PEG in place and TF running 5. Chronic vegetative state 6. Junctional rhythm - serial troponins negative - back in sinus rhythm 7. Disposition - Patient stable for discharge back to [facility] on pressure control now -copious drainage around PEG tube site wnl per mother. Problems: Subjective 24 Hr Interval Summary Free Text/Dictation no acute change Exam/Review of Systems Vital Signs Vitals Vital Signs Date Time Temp Pulse Resp B/P Pulse Ox O2 Delivery O2 Flow Rate FiO2 07/23/17 08:00 55 07/23/17 07:15 98.1 18 90/54 100 07/23/17 05:36 30 Intake and Output 07/22/17 07/22/17 07/23/17 14:59 22:59 06:59 Intake Total 890 ml Output Total 1200 ml Balance -310 ml Exam Constitutional: non-verbal, Trach connected to vent. In a chronic vegetative state. Head: atraumatic, normocephalic Neck: trach in place, no blood appreciated at site of insertion Respiratory: coarse breath sounds, diminished at bases, no wheezing Cardiovascular: nl pulses, regular rate and rhythm Gastrointestinal: soft, nondistended, BS present Musculoskeletal: Deformity with contracture of extremities Results Result Diagram: 07/22/17 1159 07/22/17 1159 Results 24 hrs Laboratory Tests Test 07/22/17 11:59 White Blood Count 5.8 Red Blood Count 4.86 Hemoglobin 13.1 L Hematocrit 40.8 L Mean Corpuscular Volume 84.0 Mean Corpuscular Hemoglobin 27.0 L Mean Corpuscular Hemoglobin Concent 32.1 Red Cell Distribution Width 14.8 H Platelet Count 199 Mean Platelet Volume 12.5 H Neutrophils % 44.5 Lymphocytes % 33.9 Monocytes % 11.9 Eosinophils % 8.8 H Basophils % 0.7 Nucleated Red Blood Cells % 0.0 Neutrophils # 2.6 Lymphocytes # 2.0 Monocytes # 0.7 Eosinophils # 0.5 Basophils # 0.0 Nucleated Red Blood Cells # 0.0 Sodium Level 139 Potassium Level 4.6 Chloride Level 103 Carbon Dioxide Level 24 Anion Gap 17 H Blood Urea Nitrogen 8 Creatinine 0.44 L Glucose Level 99 Calcium Level 9.0 Phosphorus Level 4.6 Magnesium Level 1.8 Albumin 3.8 Medications Medications Current Medications Lorazepam (Ativan) 0.5 mg Q6H PRN IV ANXIETY Last administered on 07/17/17 14: 48; Admin Dose 0.5 MG; Start 07/15/17 at 06:00 Ondansetron HCl (Zofran Inj) 4 mg Q6H PRN IV NAUSEA AND/OR VOMITING; Start at 06:00 Morphine Sulfate (morphine) 2 mg Q4H PRN IV PAIN LEVEL 7-10 Last administered on 07/17/17 02:54; Admin Dose 2 MG; Start 07/15/17 at 06:00 Famotidine (Pepcid Iv) 20 mg Q12 IV Last administered on 07/15/17 08:24; Admin Dose 20 MG; Start 07/15/17 at 09:00; Status Future Hold Acetaminophen (Tylenol Liquid) 650 mg Q4 PRN PEG PAIN LEVEL 1-3 OR FEVER Last administered on 07/16/17 04:33; Admin Dose 650 MG; Start 07/16/17 at 04:30 Baclofen (Lioresal) 25 mg Q6 GTB Last administered on 07/23/17 06:26; Admin Dose 25 MG; Start 07/17/17 at 12:00 Clonidine HCl (Catapres-Tts 1 Patch) 1 patch Q7D TRANSDERM Last administered on 07/18/17 08:38; Admin Dose 1 PATCH; Start 07/17/17 at 11:30 Diazepam (Valium) 3 mg Q6 GTB Last administered on 07/23/17 06:26; Admin Dose 3 MG; Start 07/17/17 at 12:00 Erythromycin Ethylsuccinate (E.e.s (Ped)) 120 mg Q6 GTB Last administered on 06:31; Admin Dose 120 MG; Start 07/17/17 at 18:00 Glycopyrrolate (Robinul) 0.25 mg BID GTB Last administered on 07/22/17 22:11; Admin Dose 0.25 MG; Start 07/17/17 at 11:30 Levetiracetam (Keppra Liq (Ped)) 1,750 mg BID GTB Last administered on 22:10; Admin Dose 1,750 MG; Start 07/17/17 at 11:30 Montelukast Sodium (Singulair) 10 mg QHS GTB Last administered on 07/22/17 22: 11; Admin Dose 10 MG; Start 07/17/17 at 21:00 Neomycin/ Polymyxin/ Dexamethasone (Maxitrol Oph Oint) 1 applic QPM BOTH EYES Last administered on 07/22/17 21:30; Admin Dose 1 APPLIC; Start 07/17/17 at 21: 00 Polyethylene Glycol (Miralax) 17 gm DAILY PRN PO CONSTIPATION Last administered on 07/19/17 17:31; Admin Dose 17 GM; Start 07/17/17 at 11:30 Eye Lubricant (Artificial Tears Oph) 1 drop PRN PRN BOTH EYES DRY EYES Last administered on 07/17/17 22:44; Admin Dose 1 DROP; Start 07/17/17 at 11:30 Valproate Sodium (Depakene Liquid Cup) 250 mg TID GTB Last administered on 07/22 22:10; Admin Dose 250 MG; Start 07/17/17 at 13:00 Cholecalciferol (Vitamin D) 2,000 unit DAILY GTB Last administered on 09:04; Admin Dose 2,000 UNIT; Start 07/18/17 at 09:00 Lansoprazole (Prevacid) 30 mg DAILY@06 GTB Last administered on 07/23/17 06:27 ; Admin Dose 30 MG; Start 07/18/17 at 06:00 Multivitamins (Multivitamin) 30 ml DAILY GTB Last administered on 07/22/17 09: 05; Admin Dose 30 ML; Start 07/18/17 at 09:00 Eye Lubricant (Akwa Oint) 1 applic Q4H BOTH EYES Last administered on 05:19; Admin Dose 1 APPLIC; Start 07/17/17 at 13:00 Fluticasone Propionate (Flonase 0.05% Nasal) 1 spray DAILY NASAL Last administered on 07/22/17 09:03; Admin Dose 1 SPRAY; Start 07/18/17 at 09:00 Amikacin Sulfate AMIKACIN PER PHARMACY NOTE XX ; Start 07/19/17 at 12:30 Amikacin Sulfate/ Sodium Chloride (Amikacin/NS) 100 ml @ 102 mls/hr Q12H IVPB Last administered on 07/23/17 05:21; Admin Dose 102 MLS/HR; Start 07/21/17 at 15:30 EMELY PARK Jul 23, 2017 09:18
[2017-07-23] MEDS: ARTIFICIAL TEARS 15 ML OPH BOTH EYES PRN (09:51)
[2017-07-23] MEDS: FLUTICASONE 0.05% 16 GM NAS SPRAY NASAL SCH (09:51)
[2017-07-23] MEDS: LEVETIRACETAM (100 MG/ML PO SYG) GTB SCH ×2 (09:52→21:29)
[2017-07-23] MEDS: MULTIVITAMINS 30 ML CUP GTB SCH (09:52)
[2017-07-23] MEDS: GLYCOPYRROLATE 1 MG TAB GTB SCH ×2 (09:52→21:39)
[2017-07-23] MEDS: VALPROIC ACID LIQUID CUP 250 MG/5 ML CUP GTB SCH ×3 (09:52→21:29)
[2017-07-23] MEDS: CHOLECALCIFEROL 1,000 UNIT TAB GTB SCH (09:52)
--- NOTE | 2017-07-23 12:32 | CONS ---
Date/Time of Note Date/Time of Note DATE: 07/23/17 TIME: 12:31 Consult Date/Type/Reason Admit Date/Time Jul 14, 2017 at 21:38 Initial Consult Date 07/16/17 Type of Consultation: ID Ordering Provider: LIBRA GARCIA MD Objective Vital Signs Date Time Temp Pulse Resp B/P Pulse Ox O2 Delivery O2 Flow Rate FiO2 07/23/17 11:58 97.7 62 18 88/55 98 07/23/17 11:28 30 Intake and Output 07/22/17 07/22/17 07/23/17 14:59 22:59 06:59 Intake Total 890 ml Output Total 1200 ml Balance -310 ml Results/Medications Result Diagram: 07/22/17 1159 07/22/17 1159 Medications Current Medications Lorazepam (Ativan) 0.5 mg Q6H PRN IV ANXIETY Last administered on 07/17/17 14: 48; Admin Dose 0.5 MG; Start 07/15/17 at 06:00 Ondansetron HCl (Zofran Inj) 4 mg Q6H PRN IV NAUSEA AND/OR VOMITING; Start at 06:00 Morphine Sulfate (morphine) 2 mg Q4H PRN IV PAIN LEVEL 7-10 Last administered on 07/17/17 02:54; Admin Dose 2 MG; Start 07/15/17 at 06:00 Famotidine (Pepcid Iv) 20 mg Q12 IV Last administered on 07/15/17 08:24; Admin Dose 20 MG; Start 07/15/17 at 09:00; Status Future Hold Acetaminophen (Tylenol Liquid) 650 mg Q4 PRN PEG PAIN LEVEL 1-3 OR FEVER Last administered on 07/16/17 04:33; Admin Dose 650 MG; Start 07/16/17 at 04:30 Baclofen (Lioresal) 25 mg Q6 GTB Last administered on 07/23/17 06:26; Admin Dose 25 MG; Start 07/17/17 at 12:00 Clonidine HCl (Catapres-Tts 1 Patch) 1 patch Q7D TRANSDERM Last administered on 07/18/17 08:38; Admin Dose 1 PATCH; Start 07/17/17 at 11:30 Diazepam (Valium) 3 mg Q6 GTB Last administered on 07/23/17 06:26; Admin Dose 3 MG; Start 07/17/17 at 12:00 Erythromycin Ethylsuccinate (E.e.s (Ped)) 120 mg Q6 GTB Last administered on 06:31; Admin Dose 120 MG; Start 07/17/17 at 18:00 Glycopyrrolate (Robinul) 0.25 mg BID GTB Last administered on 07/23/17 09:52; Admin Dose 0.25 MG; Start 07/17/17 at 11:30 Levetiracetam (Keppra Liq (Ped)) 1,750 mg BID GTB Last administered on 09:52; Admin Dose 1,750 MG; Start 07/17/17 at 11:30 Montelukast Sodium (Singulair) 10 mg QHS GTB Last administered on 07/22/17 22: 11; Admin Dose 10 MG; Start 07/17/17 at 21:00 Neomycin/ Polymyxin/ Dexamethasone (Maxitrol Oph Oint) 1 applic QPM BOTH EYES Last administered on 07/22/17 21:30; Admin Dose 1 APPLIC; Start 07/17/17 at 21: 00 Polyethylene Glycol (Miralax) 17 gm DAILY PRN PO CONSTIPATION Last administered on 07/19/17 17:31; Admin Dose 17 GM; Start 07/17/17 at 11:30 Eye Lubricant (Artificial Tears Oph) 1 drop PRN PRN BOTH EYES DRY EYES Last administered on 07/23/17 09:51; Admin Dose 1 DROP; Start 07/17/17 at 11:30 Valproate Sodium (Depakene Liquid Cup) 250 mg TID GTB Last administered on 07/23 09:52; Admin Dose 250 MG; Start 07/17/17 at 13:00 Cholecalciferol (Vitamin D) 2,000 unit DAILY GTB Last administered on 09:52; Admin Dose 2,000 UNIT; Start 07/18/17 at 09:00 Lansoprazole (Prevacid) 30 mg DAILY@06 GTB Last administered on 07/23/17 06:27 ; Admin Dose 30 MG; Start 07/18/17 at 06:00 Multivitamins (Multivitamin) 30 ml DAILY GTB Last administered on 07/23/17 09: 52; Admin Dose 30 ML; Start 07/18/17 at 09:00 Eye Lubricant (Akwa Oint) 1 applic Q4H BOTH EYES Last administered on 10:03; Admin Dose 1 APPLIC; Start 07/17/17 at 13:00 Fluticasone Propionate (Flonase 0.05% Nasal) 1 spray DAILY NASAL Last administered on 07/23/17 09:51; Admin Dose 1 SPRAY; Start 07/18/17 at 09:00 Amikacin Sulfate AMIKACIN PER PHARMACY NOTE XX ; Start 07/19/17 at 12:30 Amikacin Sulfate/ Sodium Chloride (Amikacin/NS) 100 ml @ 102 mls/hr Q12H IVPB Last administered on 07/23/17 05:21; Admin Dose 102 MLS/HR; Start 07/21/17 at 15:30 Miscellaneous Information (*Rx Drug Level Order Reminder*) 1 ONCE ONCE XX ; Start 07/24/17 at 02:30; Stop 07/24/17 at 02:31 Miscellaneous Information (*Rx Drug Level Order Reminder*) 1 ONCE ONCE XX ; Start 07/24/17 at 03:30; Stop 07/24/17 at 03:31 Miscellaneous Information (*Rx Drug Level Order Reminder*) 1 ONCE ONCE XX ; Start 07/24/17 at 05:00; Stop 07/24/17 at 05:01 Assessment/Plan Chief Complaint/Hosp Course SUBJECTIVE: No acute events overnight. Patient is lying comfortably in bed. He is nonverbal, noncommunicative. No fevers. MICROBIOLOGY: Blood culture on 07/14 grew staph species. Repeat blood cultures negative. Urine culture growing multidrug resistant Pseudomonas and Providencia, both susceptible to amikacin. INDWELLINGS: The patient has trach, PICC. ANTIMICROBIALS: Amikacin. DIAGNOSTICS: Chest x-ray on admission revealed no focal consolidation. PHYSICAL EXAMINATION: GENERAL: Chronically ill-appearing, debilitated young man who is in no distress. HEENT: Head is large in proportion to the body. NECK: Supple. CHEST: Rise is symmetrical. Breath sounds diminished at bases. HEART: S1, S2. ABDOMEN: Soft, bowel sounds present. EXTREMITIES: Wasted, contractures, without cyanosis. ASSESSMENT: 1. Polymicrobial urinary tract infection, possibly colonized. 2. Staph bacteremia, likely contaminant. 3. Chronic respiratory failure. 4. Persistent vegetative state. PLAN: The patient remained stable. Continue present care. Complete Amikacin for 7 days DW staff Problems: JEIMY LYNCH NP Jul 23, 2017 12:32
--- NOTE | 2017-07-23 13:38 | CONS ---
Date/Time of Note Date/Time of Note DATE: 07/23/17 TIME: 13:37 Consultation Date/Type/Reason Admit Date/Time Jul 14, 2017 at 21:38 Initial Consult Date THIS IS A LATE ENTERY FOR 07/22/17 DUE TO COMPUTER SYSTEM BEING DOWN YESTERDAY SUBJECTIVE: 21 y/o male being treated for UTI. No acute events overnight. Patient is resting comfortably in bed. He is nonverbal, noncommunicative. VS: 125/89 P:61 R:18 SO2:98% T:98.6 LABORATORY DATA: WBC -5.8. H&H: 13.1/40.8 BUN-8 creatinine 0.44 MICROBIOLOGY: Blood culture on 07/14 grew staph species. Repeat blood cultures negative. Urine culture growing multidrug resistant pseudomonas and providencia, both susceptible to amikacin. INDWELLINGS: The patient has trach, PICC. ANTIMICROBIALS: He has been on amikacin. DIAGNOSTICS: Chest x-ray on admission revealed no focal consolidation. PHYSICAL EXAMINATION: GENERAL: Chronically ill-appearing, debilitated young man who is in no distress. HEENT: Head is large in proportion to the body. NECK: Supple. CHEST: Rise is symmetrical. Breath sounds diminished at bases. HEART: S1, S2. ABDOMEN: Soft, bowel sounds present. EXTREMITIES: Wasted, contractures, without cyanosis. ASSESSMENT: 1. Polymicrobial urinary tract infection, possibly colonized. 2. Staph bacteremia, likely contaminant. 3. Chronic respiratory failure. 4. Persistent vegetative state. PLAN: The patient remained stable. Continue Amikacin. Monitor renal function closely. Type of Consultation: ID Referring Provider: LIBRA GARCIA MD Exam/Review of Systems Vital Signs Vitals Vital Signs Date Time Temp Pulse Resp B/P Pulse Ox O2 Delivery O2 Flow Rate FiO2 07/23/17 12:00 52 07/23/17 11:58 97.7 18 88/55 98 07/23/17 11:28 30 Intake and Output 07/22/17 07/22/17 07/23/17 15:00 23:00 07:00 Intake Total 890 ml Output Total 1200 ml Balance -310 ml Results Result Diagram: 07/22/17 1159 07/22/17 1159 Medications Medications Current Medications Lorazepam (Ativan) 0.5 mg Q6H PRN IV ANXIETY Last administered on 07/17/17 14: 48; Admin Dose 0.5 MG; Start 07/15/17 at 06:00 Ondansetron HCl (Zofran Inj) 4 mg Q6H PRN IV NAUSEA AND/OR VOMITING; Start at 06:00 Morphine Sulfate (morphine) 2 mg Q4H PRN IV PAIN LEVEL 7-10 Last administered on 07/17/17 02:54; Admin Dose 2 MG; Start 07/15/17 at 06:00 Famotidine (Pepcid Iv) 20 mg Q12 IV Last administered on 07/15/17 08:24; Admin Dose 20 MG; Start 07/15/17 at 09:00; Status Future Hold Acetaminophen (Tylenol Liquid) 650 mg Q4 PRN PEG PAIN LEVEL 1-3 OR FEVER Last administered on 07/16/17 04:33; Admin Dose 650 MG; Start 07/16/17 at 04:30 Baclofen (Lioresal) 25 mg Q6 GTB Last administered on 07/23/17 13:13; Admin Dose 25 MG; Start 07/17/17 at 12:00 Clonidine HCl (Catapres-Tts 1 Patch) 1 patch Q7D TRANSDERM Last administered on 07/18/17 08:38; Admin Dose 1 PATCH; Start 07/17/17 at 11:30 Diazepam (Valium) 3 mg Q6 GTB Last administered on 07/23/17 13:11; Admin Dose 3 MG; Start 07/17/17 at 12:00 Erythromycin Ethylsuccinate (E.e.s (Ped)) 120 mg Q6 GTB Last administered on 13:19; Admin Dose 120 MG; Start 07/17/17 at 18:00 Glycopyrrolate (Robinul) 0.25 mg BID GTB Last administered on 07/23/17 09:52; Admin Dose 0.25 MG; Start 07/17/17 at 11:30 Levetiracetam (Keppra Liq (Ped)) 1,750 mg BID GTB Last administered on 09:52; Admin Dose 1,750 MG; Start 07/17/17 at 11:30 Montelukast Sodium (Singulair) 10 mg QHS GTB Last administered on 07/22/17 22: 11; Admin Dose 10 MG; Start 07/17/17 at 21:00 Neomycin/ Polymyxin/ Dexamethasone (Maxitrol Oph Oint) 1 applic QPM BOTH EYES Last administered on 07/22/17 21:30; Admin Dose 1 APPLIC; Start 07/17/17 at 21: 00 Polyethylene Glycol (Miralax) 17 gm DAILY PRN PO CONSTIPATION Last administered on 07/19/17 17:31; Admin Dose 17 GM; Start 07/17/17 at 11:30 Eye Lubricant (Artificial Tears Oph) 1 drop PRN PRN BOTH EYES DRY EYES Last administered on 07/23/17 09:51; Admin Dose 1 DROP; Start 07/17/17 at 11:30 Valproate Sodium (Depakene Liquid Cup) 250 mg TID GTB Last administered on 07/23 13:13; Admin Dose 250 MG; Start 07/17/17 at 13:00 Cholecalciferol (Vitamin D) 2,000 unit DAILY GTB Last administered on 09:52; Admin Dose 2,000 UNIT; Start 07/18/17 at 09:00 Lansoprazole (Prevacid) 30 mg DAILY@06 GTB Last administered on 07/23/17 06:27 ; Admin Dose 30 MG; Start 07/18/17 at 06:00 Multivitamins (Multivitamin) 30 ml DAILY GTB Last administered on 07/23/17 09: 52; Admin Dose 30 ML; Start 07/18/17 at 09:00 Eye Lubricant (Akwa Oint) 1 applic Q4H BOTH EYES Last administered on 13:14; Admin Dose 1 APPLIC; Start 07/17/17 at 13:00 Fluticasone Propionate (Flonase 0.05% Nasal) 1 spray DAILY NASAL Last administered on 07/23/17 09:51; Admin Dose 1 SPRAY; Start 07/18/17 at 09:00 Amikacin Sulfate AMIKACIN PER PHARMACY NOTE XX ; Start 07/19/17 at 12:30 Amikacin Sulfate/ Sodium Chloride (Amikacin/NS) 100 ml @ 102 mls/hr Q12H IVPB Last administered on 07/23/17 05:21; Admin Dose 102 MLS/HR; Start 07/21/17 at 15:30 Miscellaneous Information (*Rx Drug Level Order Reminder*) 1 ONCE ONCE XX ; Start 07/24/17 at 02:30; Stop 07/24/17 at 02:31 Miscellaneous Information (*Rx Drug Level Order Reminder*) 1 ONCE ONCE XX ; Start 07/24/17 at 03:30; Stop 07/24/17 at 03:31 Miscellaneous Information (*Rx Drug Level Order Reminder*) 1 ONCE ONCE XX ; Start 07/24/17 at 05:00; Stop 07/24/17 at 05:01 BRENT CHIU Jul 23, 2017 13:38
--- NOTE | 2017-07-23 15:27 | DS ---
Date/Time of Note Date/Time of Note DATE: 07/23/17 TIME: 15:27 Discharge Summary Admission/Discharge Info Admit Date/Time Jul 14, 2017 at 21:38 Discharge Date/Time Patient Condition: Stable Hx of Present Illness This is a 21-year-old male with history of chronic encephalopathy, chronic trach /vent dependent respiratory failure who was sent from a detention facility for hypoxia. Information is obtained from the mother who was at the bedside and from the ER physician and chart review. When he presented to the ER, his trach tube was replaced with normalization of oxygen saturation. He has however been bleeding through his trach since his tracheostomy tube was replaced. He had about a 200 cc of blood that was suctioned over a period of 7 hours. According to his mother, he fell down when he was 4 years old and since then has been in a chronic vegetative state and has been trach/vent dependent. Chest x-ray showed left lower lung atelectasis versus airspace disease. Hospital Course Patient is a 21-year-old -Mac[place] male with a past medical history of chronic vegetative state since the age of 4 secondary to traumatic fall who also has a past medical history of epilepsy and mood disorder and acute hypercapnic respiratory failure on chronic failure on the vent who originally presented for trach malfunction and acute hypercapnic respiratory failure. Patient was evaluated by pulmonology and an infectious disease as well. Patient 's trach was replaced per pulmonology and was placed on pressure control ventilation per recommendations from detention facility to accept. Patient also had UTI that grew Providencia stuartii and pseudomonas aeruginosa and subsequently placed patient on infectious disease amikacin for a total of 7 days. Patient's first dose of amikacin was July 21 and will need 7 days from that date. Patient's respiratory status improved and patient's hypotension also resolved. Patient was placed back on home medications and is stable to transfer back to detention facility. Patient has considerable secretions, however upon speaking with detention facility MD and mother at bedside it is quite normal for patient as well as his increased drainage on his GI site PEG. Discharge diagnosis acute hypercapnic respiratory failure on chronic respiratory failure vent dependent UTI, Providencia and Pseudomonas Hypotension, resolved, likely secondary to von depletion Failure to thrive, chronic Chronic encephalopathy, secondary to trauma as a young child Epilepsy Mood disorder Home Meds Reported Medications Ergocalciferol (Vitamin D2) (VITAMIN D2) 2,000 Unit Tablet, 2000 UNIT GTB DAILY , TAB 07/15/17 Montelukast Sodium* (Singulair*) 10 Mg Tablet, 10 MG GTB QHS, #30 TAB 07/15/17 Clonidine Patch (CATAPRES PATCH) 0.1 Mg/24 Hr Patch, 1 PATCH TD Q7D, #4 PATCH.WK 07/15/17 Baclofen* (Baclofen*) 10 Mg Tablet, 25 MG GTB Q6, TAB 07/15/17 Sodium Chloride* (Nacl*) 1 Gm Tab, 60 MEQ PO QID, TAB 07/15/17 Levetiracetam* (Keppra* (Ped)) 100 Mg/Ml Liq, 1750 MG GTB BID for 30 Days, BOTTLE 07/15/17 Erythromycin (Erythromycin) 500 Mg Tabec, 120 MG GTB Q6, TAB 07/15/17 Mineral Oil/Lanolin Oil (Lacri-Lube) 3.5 Gm Oint, 1 APPLIC BOTH EYES Q4H WHILE AWAKE, #1 EA 07/15/17 Mometasone Furoate* (Nasonex*) 50 Mcg/[place] - 17 Gm [place].pump, 1 SPRAY NASAL DAILY, #1 BOTTLE TO EACH NOSTRIL 07/15/17 Diazepam* (Diazepam*) 2 Mg Tablet, 3 MG GTB Q6, TAB 07/15/17 Polyethylene Glycol* (Miralax*) 17 Gm Powd.pack, 17 GM PO DAILY Y for CONSTIPATION, #30 PACKET 07/15/17 Polyvinyl Alcohol (Tears Again) 15 Ml Drops, 1 DRP BOTH EYES PRN, BOTTLE 07/15/17 Kobe/Polymyx B Sulf/Dexameth (Maxitrol Eye Ointment) 3.5 Gm Oint..gm., 1 INCH BOTH EYES QPM 07/15/17 Amino Acids/Protein Hydrolys (PRO-STAT LIQUID) 30 Ml Liquid.pkt, 30 ML GTB DAILY 07/15/17 Glycopyrrolate* (Robinul*) 1 Mg Tab, 250 MCG GTB BID, TAB 07/15/17 Valproic Acid* (Valproic Acid* Liq) 250 Mg/5 Ml Syrup, 250 MG GTB TID, ML 07/15/17 Folic Acid/Mv,Fe,Min (Centrum Chewable Tablet) 1 Each Tab.chew, 1 EACH GTB DAILY , TAB.CHEW 07/15/17 Esomeprazole Mag Trihydrate (Nexium) 20 Mg Capsule., 20 MG GTB BID, #30 CAP 07/15/17 Primary Care Provider Not On Staff Doctor Time spent on discharge: > 30 minutes EMELY PARK Jul 23, 2017 15:27
--- NOTE | 2017-07-23 15:27 | DS ---
Date/Time of Note Date/Time of Note DATE: 07/23/17 TIME: 15:27 Discharge Summary Admission/Discharge Info Admit Date/Time Jul 14, 2017 at 21:38 Discharge Date/Time Patient Condition: Stable Hx of Present Illness This is a 21-year-old male with history of chronic encephalopathy, chronic trach /vent dependent respiratory failure who was sent from a [facility] facility for hypoxia. Information is obtained from the mother who was at the bedside and from the ER physician and chart review. When he presented to the ER, his trach tube was replaced with normalization of oxygen saturation. He has however been bleeding through his trach since his tracheostomy tube was replaced. He had about a 200 cc of blood that was suctioned over a period of 7 hours. According to his mother, he fell down when he was 4 years old and since then has been in a chronic vegetative state and has been trach/vent dependent. Chest x-ray showed left lower lung atelectasis versus airspace disease. Hospital Course Patient is a 21-year-old -[place] male with a past medical history of chronic vegetative state since the age of 4 secondary to traumatic fall who also has a past medical history of epilepsy and mood disorder and acute hypercapnic respiratory failure on chronic failure on the vent who originally presented for trach malfunction and acute hypercapnic respiratory failure. Patient was evaluated by pulmonology and an infectious disease as well. Patient 's trach was replaced per pulmonology and was placed on pressure control ventilation per recommendations from [facility] facility to accept. Patient also had UTI that grew Providencia stuartii and pseudomonas aeruginosa and subsequently placed patient on infectious disease amikacin for a total of 7 days. Patient's first dose of amikacin was July 21 and will need 7 days from that date. Patient's respiratory status improved and patient's hypotension also resolved. Patient was placed back on home medications and is stable to transfer back to [facility] facility. Patient has considerable secretions, however upon speaking with [facility] facility MD and mother at bedside it is quite normal for patient as well as his increased drainage on his GI site PEG. Discharge diagnosis acute hypercapnic respiratory failure on chronic respiratory failure vent dependent UTI, Providencia and Pseudomonas Hypotension, resolved, likely secondary to von depletion Failure to thrive, chronic Chronic encephalopathy, secondary to trauma as a young child Epilepsy Mood disorder Home Meds Reported Medications Ergocalciferol (Vitamin D2) (VITAMIN D2) 2,000 Unit Tablet, 2000 UNIT GTB DAILY , TAB 07/15/17 Montelukast Sodium* (Singulair*) 10 Mg Tablet, 10 MG GTB QHS, #30 TAB 07/15/17 Clonidine Patch (CATAPRES PATCH) 0.1 Mg/24 Hr Patch, 1 PATCH TD Q7D, #4 PATCH.WK 07/15/17 Baclofen* (Baclofen*) 10 Mg Tablet, 25 MG GTB Q6, TAB 07/15/17 Sodium Chloride* (Nacl*) 1 Gm Tab, 60 MEQ PO QID, TAB 07/15/17 Levetiracetam* (Keppra* (Ped)) 100 Mg/Ml Liq, 1750 MG GTB BID for 30 Days, BOTTLE 07/15/17 Erythromycin (Erythromycin) 500 Mg Tabec, 120 MG GTB Q6, TAB 07/15/17 Mineral Oil/Lanolin Oil (Lacri-Lube) 3.5 Gm Oint, 1 APPLIC BOTH EYES Q4H WHILE AWAKE, #1 EA 07/15/17 Mometasone Furoate* (Nasonex*) 50 Mcg/[place] - 17 Gm [place].pump, 1 SPRAY NASAL DAILY, #1 BOTTLE TO EACH NOSTRIL 07/15/17 Diazepam* (Diazepam*) 2 Mg Tablet, 3 MG GTB Q6, TAB 07/15/17 Polyethylene Glycol* (Miralax*) 17 Gm Powd.pack, 17 GM PO DAILY Y for CONSTIPATION, #30 PACKET 07/15/17 Polyvinyl Alcohol (Tears Again) 15 Ml Drops, 1 DRP BOTH EYES PRN, BOTTLE 07/15/17 Kobe/Polymyx B Sulf/Dexameth (Maxitrol Eye Ointment) 3.5 Gm Oint..gm., 1 INCH BOTH EYES QPM 07/15/17 Amino Acids/Protein Hydrolys (PRO-STAT LIQUID) 30 Ml Liquid.pkt, 30 ML GTB DAILY 07/15/17 Glycopyrrolate* (Robinul*) 1 Mg Tab, 250 MCG GTB BID, TAB 07/15/17 Valproic Acid* (Valproic Acid* Liq) 250 Mg/5 Ml Syrup, 250 MG GTB TID, ML 07/15/17 Folic Acid/Mv,Fe,Min (Centrum Chewable Tablet) 1 Each Tab.chew, 1 EACH GTB DAILY , TAB.CHEW 07/15/17 Esomeprazole Mag Trihydrate (Nexium) 20 Mg Capsule., 20 MG GTB BID, #30 CAP 07/15/17 Primary Care Provider Not On Staff Doctor Time spent on discharge: > 30 minutes EMELY PAKR Jul 23, 2017 15:27
--- NOTE | 2017-07-23 15:27 | DS ---
Date/Time of Note Date/Time of Note DATE: 07/23/17 TIME: 15:27 Discharge Summary Admission/Discharge Info Admit Date/Time Jul 14, 2017 at 21:38 Discharge Date/Time Patient Condition: Stable Hx of Present Illness This is a 21-year-old male with history of chronic encephalopathy, chronic trach /vent dependent respiratory failure who was sent from a residential facility for hypoxia. Information is obtained from the mother who was at the bedside and from the ER physician and chart review. When he presented to the ER, his trach tube was replaced with normalization of oxygen saturation. He has however been bleeding through his trach since his tracheostomy tube was replaced. He had about a 200 cc of blood that was suctioned over a period of 7 hours. According to his mother, he fell down when he was 4 years old and since then has been in a chronic vegetative state and has been trach/vent dependent. Chest x-ray showed left lower lung atelectasis versus airspace disease. Hospital Course Patient is a 21-year-old -Aust[place] male with a past medical history of chronic vegetative state since the age of 4 secondary to traumatic fall who also has a past medical history of epilepsy and mood disorder and acute hypercapnic respiratory failure on chronic failure on the vent who originally presented for trach malfunction and acute hypercapnic respiratory failure. Patient was evaluated by pulmonology and an infectious disease as well. Patient 's trach was replaced per pulmonology and was placed on pressure control ventilation per recommendations from residential facility to accept. Patient also had UTI that grew Providencia stuartii and pseudomonas aeruginosa and subsequently placed patient on infectious disease amikacin for a total of 7 days. Patient's first dose of amikacin was July 21 and will need 7 days from that date. Patient's respiratory status improved and patient's hypotension also resolved. Patient was placed back on home medications and is stable to transfer back to residential facility. Patient has considerable secretions, however upon speaking with residential facility MD and mother at bedside it is quite normal for patient as well as his increased drainage on his GI site PEG. Discharge diagnosis acute hypercapnic respiratory failure on chronic respiratory failure vent dependent UTI, Providencia and Pseudomonas Hypotension, resolved, likely secondary to von depletion Failure to thrive, chronic Chronic encephalopathy, secondary to trauma as a young child Epilepsy Mood disorder Home Meds Reported Medications Ergocalciferol (Vitamin D2) (VITAMIN D2) 2,000 Unit Tablet, 2000 UNIT GTB DAILY , TAB 07/15/17 Montelukast Sodium* (Singulair*) 10 Mg Tablet, 10 MG GTB QHS, #30 TAB 07/15/17 Clonidine Patch (CATAPRES PATCH) 0.1 Mg/24 Hr Patch, 1 PATCH TD Q7D, #4 PATCH.WK 07/15/17 Baclofen* (Baclofen*) 10 Mg Tablet, 25 MG GTB Q6, TAB 07/15/17 Sodium Chloride* (Nacl*) 1 Gm Tab, 60 MEQ PO QID, TAB 07/15/17 Levetiracetam* (Keppra* (Ped)) 100 Mg/Ml Liq, 1750 MG GTB BID for 30 Days, BOTTLE 07/15/17 Erythromycin (Erythromycin) 500 Mg Tabec, 120 MG GTB Q6, TAB 07/15/17 Mineral Oil/Lanolin Oil (Lacri-Lube) 3.5 Gm Oint, 1 APPLIC BOTH EYES Q4H WHILE AWAKE, #1 EA 07/15/17 Mometasone Furoate* (Nasonex*) 50 Mcg/[place] - 17 Gm [place].pump, 1 SPRAY NASAL DAILY, #1 BOTTLE TO EACH NOSTRIL 07/15/17 Diazepam* (Diazepam*) 2 Mg Tablet, 3 MG GTB Q6, TAB 07/15/17 Polyethylene Glycol* (Miralax*) 17 Gm Powd.pack, 17 GM PO DAILY Y for CONSTIPATION, #30 PACKET 07/15/17 Polyvinyl Alcohol (Tears Again) 15 Ml Drops, 1 DRP BOTH EYES PRN, BOTTLE 07/15/17 Kobe/Polymyx B Sulf/Dexameth (Maxitrol Eye Ointment) 3.5 Gm Oint..gm., 1 INCH BOTH EYES QPM 07/15/17 Amino Acids/Protein Hydrolys (PRO-STAT LIQUID) 30 Ml Liquid.pkt, 30 ML GTB DAILY 07/15/17 Glycopyrrolate* (Robinul*) 1 Mg Tab, 250 MCG GTB BID, TAB 07/15/17 Valproic Acid* (Valproic Acid* Liq) 250 Mg/5 Ml Syrup, 250 MG GTB TID, ML 07/15/17 Folic Acid/Mv,Fe,Min (Centrum Chewable Tablet) 1 Each Tab.chew, 1 EACH GTB DAILY , TAB.CHEW 07/15/17 Esomeprazole Mag Trihydrate (Nexium) 20 Mg Capsule., 20 MG GTB BID, #30 CAP 07/15/17 Primary Care Provider Not On Staff Doctor Time spent on discharge: > 30 minutes EMELY PARK Jul 23, 2017 15:27
[2017-07-23] MEDS ORDERED: Amikacin Iv Per Pharmacy XX (15:29)
--- NOTE | 2017-07-23 15:38 | CONS ---
Date/Time of Note Date/Time of Note DATE: 07/23/17 TIME: 15:38 Consult Date/Type/Reason Admit Date/Time Jul 14, 2017 at 21:38 Initial Consult Date 07/16/17 Type of Consultation: Pulmonary Ordering Provider: LIBRA GARCIA MD Subjective Patient switched to pressure control ventilation yesterday per request of accepting facility. Objective Vital Signs Date Time Temp Pulse Resp B/P Pulse Ox O2 Delivery O2 Flow Rate FiO2 07/23/17 15:27 97.4 18 105/65 98 07/23/17 13:44 51 30 Intake and Output 07/22/17 07/22/17 07/23/17 15:00 23:00 07:00 Intake Total 890 ml Output Total 1200 ml Balance -310 ml Exam GENERAL: Young gentleman chronically ill comfortable at rest VITAL SIGNS: per chart NECK: Supple. No JVD or lymphadenopathy. CARDIAC EXAM: S1, S2. No added sounds or murmurs. CHEST: clear bilaterally, No added sounds, rales or wheezes ABDOMEN: Soft, nontender. No guarding or rebound. EXTREMITIES: No cyanosis, clubbing or edema. NEUROLOGIC: Generalized weakness. No focal deficits. Results/Medications Result Diagram: 07/22/17 1159 07/22/17 1159 Medications Current Medications Lorazepam (Ativan) 0.5 mg Q6H PRN IV ANXIETY Last administered on 07/17/17 14: 48; Admin Dose 0.5 MG; Start 07/15/17 at 06:00 Ondansetron HCl (Zofran Inj) 4 mg Q6H PRN IV NAUSEA AND/OR VOMITING; Start at 06:00 Morphine Sulfate (morphine) 2 mg Q4H PRN IV PAIN LEVEL 7-10 Last administered on 07/17/17 02:54; Admin Dose 2 MG; Start 07/15/17 at 06:00 Famotidine (Pepcid Iv) 20 mg Q12 IV Last administered on 07/15/17 08:24; Admin Dose 20 MG; Start 07/15/17 at 09:00; Status Future Hold Acetaminophen (Tylenol Liquid) 650 mg Q4 PRN PEG PAIN LEVEL 1-3 OR FEVER Last administered on 07/16/17 04:33; Admin Dose 650 MG; Start 07/16/17 at 04:30 Baclofen (Lioresal) 25 mg Q6 GTB Last administered on 07/23/17 13:13; Admin Dose 25 MG; Start 07/17/17 at 12:00 Clonidine HCl (Catapres-Tts 1 Patch) 1 patch Q7D TRANSDERM Last administered on 07/18/17 08:38; Admin Dose 1 PATCH; Start 07/17/17 at 11:30 Diazepam (Valium) 3 mg Q6 GTB Last administered on 07/23/17 13:11; Admin Dose 3 MG; Start 07/17/17 at 12:00 Erythromycin Ethylsuccinate (E.e.s (Ped)) 120 mg Q6 GTB Last administered on 13:19; Admin Dose 120 MG; Start 07/17/17 at 18:00 Glycopyrrolate (Robinul) 0.25 mg BID GTB Last administered on 07/23/17 09:52; Admin Dose 0.25 MG; Start 07/17/17 at 11:30 Levetiracetam (Keppra Liq (Ped)) 1,750 mg BID GTB Last administered on 09:52; Admin Dose 1,750 MG; Start 07/17/17 at 11:30 Montelukast Sodium (Singulair) 10 mg QHS GTB Last administered on 07/22/17 22: 11; Admin Dose 10 MG; Start 07/17/17 at 21:00 Neomycin/ Polymyxin/ Dexamethasone (Maxitrol Oph Oint) 1 applic QPM BOTH EYES Last administered on 07/22/17 21:30; Admin Dose 1 APPLIC; Start 07/17/17 at 21: 00 Polyethylene Glycol (Miralax) 17 gm DAILY PRN PO CONSTIPATION Last administered on 07/19/17 17:31; Admin Dose 17 GM; Start 07/17/17 at 11:30 Eye Lubricant (Artificial Tears Oph) 1 drop PRN PRN BOTH EYES DRY EYES Last administered on 07/23/17 09:51; Admin Dose 1 DROP; Start 07/17/17 at 11:30 Valproate Sodium (Depakene Liquid Cup) 250 mg TID GTB Last administered on 07/23 13:13; Admin Dose 250 MG; Start 07/17/17 at 13:00 Cholecalciferol (Vitamin D) 2,000 unit DAILY GTB Last administered on 09:52; Admin Dose 2,000 UNIT; Start 07/18/17 at 09:00 Lansoprazole (Prevacid) 30 mg DAILY@06 GTB Last administered on 07/23/17 06:27 ; Admin Dose 30 MG; Start 07/18/17 at 06:00 Multivitamins (Multivitamin) 30 ml DAILY GTB Last administered on 07/23/17 09: 52; Admin Dose 30 ML; Start 07/18/17 at 09:00 Eye Lubricant ([place] Oint) 1 applic Q4H BOTH EYES Last administered on 13:14; Admin Dose 1 APPLIC; Start 07/17/17 at 13:00 Fluticasone Propionate (Flonase 0.05% Nasal) 1 spray DAILY NASAL Last administered on 07/23/17 09:51; Admin Dose 1 SPRAY; Start 07/18/17 at 09:00 Amikacin Sulfate AMIKACIN PER PHARMACY NOTE XX ; Start 07/19/17 at 12:30 Amikacin Sulfate/ Sodium Chloride (Amikacin/NS) 100 ml @ 102 mls/hr Q12H IVPB Last administered on 07/23/17 15:23; Admin Dose 102 MLS/HR; Start 07/21/17 at 15:30 Miscellaneous Information (*Rx Drug Level Order Reminder*) 1 ONCE ONCE XX ; Start 07/24/17 at 02:30; Stop 07/24/17 at 02:31 Miscellaneous Information (*Rx Drug Level Order Reminder*) 1 ONCE ONCE XX ; Start 07/24/17 at 03:30; Stop 07/24/17 at 03:31 Miscellaneous Information (*Rx Drug Level Order Reminder*) 1 ONCE ONCE XX ; Start 07/24/17 at 05:00; Stop 07/24/17 at 05:01 Assessment/Plan Chief Complaint/Hosp Course Additional Assessment/Plan IMP 1. VDRF/status post tracheostomy and dislodgement. Now replaced on mechanical ventilation previously patient was on cool aerosol 2. Chronic encephalopathy persistent vegetative state RECS: 1. Continues pressure control ventilation DC to snf facility Problems: [facility] Jul 23, 2017 15:38
[2017-07-23] MEDS: SOD CHLORIDE 0.9% 1,000 ML IV SCH (16:44)
[2017-07-23] MEDS: NEOMYC/POLYMYX/DEXAM 3.5GM OPH OINT BOTH EYES SCH (21:37)
[2017-07-23] MEDS: MONTELUKAST 10 MG TAB GTB SCH (21:39)
[2017-07-24] VITALS (23 sets, daily range): BP systolic 96–140; BP diastolic 54–74; PULSE 40–64; RESP 18–25
[2017-07-24] MEDS: BACLOFEN 10 MG TAB GTB SCH ×4 (00:09→17:09)
[2017-07-24] MEDS: ERYTHROMYCIN ETHYL SUCC (80 MG/ML PO SYG) GTB SCH ×4 (00:09→17:08)
[2017-07-24] MEDS: OCULAR LUBRICANT 3.5 GM OPH OINT BOTH EYES SCH ×5 (00:09→17:08)
[2017-07-24] MEDS: DIAZEPAM 2 MG TAB GTB SCH ×4 (01:33→17:14)
[2017-07-24] MEDS: SOD CHLORIDE 0.9% 1,000 ML IV SCH ×2 (02:30→03:44)
[2017-07-24] MEDS: AMIKACIN IVPB SCH ×2 (03:49→15:42)
[2017-07-24] MEDS: SOD CHLORIDE 0.9% IVPB SCH ×2 (03:49→15:42)
[2017-07-24] MEDS: LANSOPRAZOLE 30 MG CAP GTB SCH (05:16)
[2017-07-24] MEDS: ALBUTEROL/IPRATROPIUM (NEB) 3 ML AMP HHN PRN ×2 (08:15→12:59)
[2017-07-24] MEDS ORDERED: NA POLYST SULFON 15 GM/60 ML BTL PO ONE (09:30)
[2017-07-24] MEDS: FLUTICASONE 0.05% 16 GM NAS SPRAY NASAL SCH (09:31)
[2017-07-24] MEDS: CHOLECALCIFEROL 1,000 UNIT TAB GTB SCH (09:32)
[2017-07-24] MEDS: VALPROIC ACID LIQUID CUP 250 MG/5 ML CUP GTB SCH ×2 (09:32→12:33)
[2017-07-24] MEDS: MULTIVITAMINS 30 ML CUP GTB SCH (09:32)
[2017-07-24] MEDS: LEVETIRACETAM (100 MG/ML PO SYG) GTB SCH (09:33)
[2017-07-24] MEDS: GLYCOPYRROLATE 1 MG TAB GTB SCH (09:33)
--- NOTE | 2017-07-24 10:04 | CONS ---
Date/Time of Note Date/Time of Note DATE: 07/24/17 TIME: 10:03 Consult Date/Type/Reason Admit Date/Time Jul 14, 2017 at 21:38 Initial Consult Date 07/16/17 Type of Consultation: Pulmonary Ordering Provider: LIBRA GARCIA MD Subjective Discharge held secondary to low urine output. No significant clinical changes. Patient stable this morning. Objective Vital Signs Date Time Temp Pulse Resp B/P Pulse Ox O2 Delivery O2 Flow Rate FiO2 07/24/17 09:40 56 25 98 30 07/24/17 07:07 98.3 107/63 Intake and Output 07/23/17 07/23/17 07/24/17 15:00 23:00 07:00 Intake Total 940 ml 840 ml Output Total 500 ml 800 ml Balance 440 ml 40 ml Exam GENERAL: Young gentleman chronically ill comfortable at rest VITAL SIGNS: per chart NECK: Supple. No JVD or lymphadenopathy. CARDIAC EXAM: S1, S2. No added sounds or murmurs. CHEST: clear bilaterally, No added sounds, rales or wheezes ABDOMEN: Soft, nontender. No guarding or rebound. EXTREMITIES: No cyanosis, clubbing or edema. NEUROLOGIC: Generalized weakness. No focal deficits. Results/Medications Result Diagram: 07/24/17 0555 07/24/17 0555 Results 24 hrs Laboratory Tests Test 07/24/17 02:30 07/24/17 05:55 07/24/17 08:28 Amikacin Level Trough White Blood Count 5.8 Red Blood Count 4.52 L Hemoglobin 12.4 L Hematocrit 38.3 L Mean Corpuscular Volume 84.7 Mean Corpuscular Hemoglobin 27.4 L Mean Corpuscular Hemoglobin Concent 32.4 Red Cell Distribution Width 15.0 H Platelet Count 222 Mean Platelet Volume 13.1 H Neutrophils % 42.1 Lymphocytes % 36.8 Monocytes % 9.8 Eosinophils % 10.5 H Basophils % 0.5 Nucleated Red Blood Cells % 0.0 Neutrophils # 2.5 Lymphocytes # 2.1 Monocytes # 0.6 Eosinophils # 0.6 H Basophils # 0.0 Nucleated Red Blood Cells # 0.0 Sodium Level 141 Potassium Level 5.4 H Chloride Level 111 H Carbon Dioxide Level 22 Anion Gap 13 Blood Urea Nitrogen 9 Creatinine 0.45 L Glucose Level 89 Calcium Level 8.7 Phosphorus Level 4.7 Magnesium Level 1.9 Lab Scanned Report REFERENCE LAB Medications Current Medications Lorazepam (Ativan) 0.5 mg Q6H PRN IV ANXIETY Last administered on 07/17/17 14: 48; Admin Dose 0.5 MG; Start 07/15/17 at 06:00 Ondansetron HCl (Zofran Inj) 4 mg Q6H PRN IV NAUSEA AND/OR VOMITING; Start at 06:00 Morphine Sulfate (morphine) 2 mg Q4H PRN IV PAIN LEVEL 7-10 Last administered on 07/17/17 02:54; Admin Dose 2 MG; Start 07/15/17 at 06:00 Famotidine (Pepcid Iv) 20 mg Q12 IV Last administered on 07/15/17 08:24; Admin Dose 20 MG; Start 07/15/17 at 09:00; Status Future Hold Acetaminophen (Tylenol Liquid) 650 mg Q4 PRN PEG PAIN LEVEL 1-3 OR FEVER Last administered on 07/16/17 04:33; Admin Dose 650 MG; Start 07/16/17 at 04:30 Baclofen (Lioresal) 25 mg Q6 GTB Last administered on 07/24/17 05:16; Admin Dose 25 MG; Start 07/17/17 at 12:00 Clonidine HCl (Catapres-Tts 1 Patch) 1 patch Q7D TRANSDERM Last administered on 07/18/17 08:38; Admin Dose 1 PATCH; Start 07/17/17 at 11:30 Diazepam (Valium) 3 mg Q6 GTB Last administered on 07/24/17 05:16; Admin Dose 3 MG; Start 07/17/17 at 12:00 Erythromycin Ethylsuccinate (E.e.s (Ped)) 120 mg Q6 GTB Last administered on 05:15; Admin Dose 120 MG; Start 07/17/17 at 18:00 Glycopyrrolate (Robinul) 0.25 mg BID GTB Last administered on 07/24/17 09:33; Admin Dose 0.25 MG; Start 07/17/17 at 11:30 Levetiracetam (Keppra Liq (Ped)) 1,750 mg BID GTB Last administered on 09:33; Admin Dose 1,750 MG; Start 07/17/17 at 11:30 Montelukast Sodium (Singulair) 10 mg QHS GTB Last administered on 07/23/17 21: 39; Admin Dose 10 MG; Start 07/17/17 at 21:00 Neomycin/ Polymyxin/ Dexamethasone (Maxitrol Oph Oint) 1 applic QPM BOTH EYES Last administered on 07/23/17 21:37; Admin Dose 1 APPLIC; Start 07/17/17 at 21: 00 Polyethylene Glycol (Miralax) 17 gm DAILY PRN PO CONSTIPATION Last administered on 07/19/17 17:31; Admin Dose 17 GM; Start 07/17/17 at 11:30 Eye Lubricant (Artificial Tears Oph) 1 drop PRN PRN BOTH EYES DRY EYES Last administered on 07/23/17 09:51; Admin Dose 1 DROP; Start 07/17/17 at 11:30 Valproate Sodium (Depakene Liquid Cup) 250 mg TID GTB Last administered on 07/24 09:32; Admin Dose 250 MG; Start 07/17/17 at 13:00 Cholecalciferol (Vitamin D) 2,000 unit DAILY GTB Last administered on 09:32; Admin Dose 2,000 UNIT; Start 07/18/17 at 09:00 Lansoprazole (Prevacid) 30 mg DAILY@06 GTB Last administered on 07/24/17 05:16 ; Admin Dose 30 MG; Start 07/18/17 at 06:00 Multivitamins (Multivitamin) 30 ml DAILY GTB Last administered on 07/24/17 09: 32; Admin Dose 30 ML; Start 07/18/17 at 09:00 Eye Lubricant ([place] Oint) 1 applic Q4H BOTH EYES Last administered on 09:32; Admin Dose 1 APPLIC; Start 07/17/17 at 13:00 Fluticasone Propionate (Flonase 0.05% Nasal) 1 spray DAILY NASAL Last administered on 07/24/17 09:31; Admin Dose 1 SPRAY; Start 07/18/17 at 09:00 Amikacin Sulfate AMIKACIN PER PHARMACY NOTE XX ; Start 07/19/17 at 12:30 Amikacin Sulfate 350 mg/Sodium Chloride 100 ml @ 102 mls/hr Q12H IVPB Last administered on 11/8/17at 03:49; Admin Dose 102 MLS/HR; Start 07/21/17 at 15:30 Sodium Chloride (NS) 1,000 ml @ 100 mls/hr Q10H IV Last administered on t 03:44; Admin Dose 100 MLS/HR; Start 07/23/17 at 16:30 Assessment/Plan Chief Complaint/Hosp Course Additional Assessment/Plan IMP 1. VDRF/status post tracheostomy and dislodgement. Now replaced on mechanical ventilation previously patient was on cool aerosol 2. Chronic encephalopathy persistent vegetative state 3. Increase free water and IV fluids. Correct hyperkalemia. RECS: 1. Continues pressure control ventilation 2. DC to senior care facility. Problems: [facility] Jul 24, 2017 10:04
[2017-07-24] MEDS: CLONIDINE 0.1 MG/24 HR PATCH TRANSDERM SCH (12:37)
--- NOTE | 2017-07-24 14:08 | CONS ---
Date/Time of Note Date/Time of Note DATE: 07/24/17 TIME: 14:07 Consult Date/Type/Reason Admit Date/Time Jul 14, 2017 at 21:38 Initial Consult Date 07/16/17 Type of Consultation: ID Ordering Provider: LIBRA GARCIA MD Objective Vital Signs Date Time Temp Pulse Resp B/P Pulse Ox O2 Delivery O2 Flow Rate FiO2 07/24/17 13:00 53 18 100 30 07/24/17 11:28 98.1 96/54 Intake and Output 07/23/17 07/23/17 07/24/17 15:00 23:00 07:00 Intake Total 940 ml 840 ml Output Total 500 ml 800 ml Balance 440 ml 40 ml Results/Medications Result Diagram: 07/24/17 0555 07/24/17 1100 Results 24 hrs Laboratory Tests Test 07/24/17 02:30 07/24/17 05:47 07/24/17 05:55 07/24/17 08:28 Amikacin Level Trough Amikacin Level Peak White Blood Count 5.8 Red Blood Count 4.52 L Hemoglobin 12.4 L Hematocrit 38.3 L Mean Corpuscular Volume 84.7 Mean Corpuscular Hemoglobin 27.4 L Mean Corpuscular Hemoglobin Concent 32.4 Red Cell Distribution Width 15.0 H Platelet Count 222 Mean Platelet Volume 13.1 H Neutrophils % 42.1 Lymphocytes % 36.8 Monocytes % 9.8 Eosinophils % 10.5 H Basophils % 0.5 Nucleated Red Blood Cells % 0.0 Neutrophils # 2.5 Lymphocytes # 2.1 Monocytes # 0.6 Eosinophils # 0.6 H Basophils # 0.0 Nucleated Red Blood Cells # 0.0 Sodium Level 141 Potassium Level 5.4 H Chloride Level 111 H Carbon Dioxide Level 22 Anion Gap 13 Blood Urea Nitrogen 9 Creatinine 0.45 L Glucose Level 89 Calcium Level 8.7 Phosphorus Level 4.7 Magnesium Level 1.9 Lab Scanned Report REFERENCE LAB Test 07/24/17 11:00 07/24/17 11:05 Potassium Level 4.8 Lab Scanned Report REFERENCE LAB Medications Current Medications Lorazepam (Ativan) 0.5 mg Q6H PRN IV ANXIETY Last administered on 07/17/17t 14: 48; Admin Dose 0.5 MG; Start 07/15/17 at 06:00 Ondansetron HCl (Zofran Inj) 4 mg Q6H PRN IV NAUSEA AND/OR VOMITING; Start at 06:00 Morphine Sulfate (morphine) 2 mg Q4H PRN IV PAIN LEVEL 7-10 Last administered on 07/17/17 02:54; Admin Dose 2 MG; Start 07/15/17 at 06:00 Famotidine (Pepcid Iv) 20 mg Q12 IV Last administered on 07/15/17 08:24; Admin Dose 20 MG; Start 07/15/17 at 09:00; Status Future Hold Acetaminophen (Tylenol Liquid) 650 mg Q4 PRN PEG PAIN LEVEL 1-3 OR FEVER Last administered on 07/16/17 04:33; Admin Dose 650 MG; Start 07/16/17 at 04:30 Baclofen (Lioresal) 25 mg Q6 GTB Last administered on 07/24/17 12:32; Admin Dose 25 MG; Start 07/17/17 at 12:00 Clonidine HCl (Catapres-Tts 1 Patch) 1 patch Q7D TRANSDERM Last administered on 07/24/17 12:37; Admin Dose 1 PATCH; Start 07/17/17 at 11:30 Diazepam (Valium) 3 mg Q6 GTB Last administered on 07/24/17 12:32; Admin Dose 3 MG; Start 07/17/17 at 12:00 Erythromycin Ethylsuccinate (E.e.s (Ped)) 120 mg Q6 GTB Last administered on 12:33; Admin Dose 120 MG; Start 07/17/17 at 18:00 Glycopyrrolate (Robinul) 0.25 mg BID GTB Last administered on 07/24/17 09:33; Admin Dose 0.25 MG; Start 07/17/17 at 11:30 Levetiracetam (Keppra Liq (Ped)) 1,750 mg BID GTB Last administered on 09:33; Admin Dose 1,750 MG; Start 07/17/17 at 11:30 Montelukast Sodium (Singulair) 10 mg QHS GTB Last administered on 07/23/17 21: 39; Admin Dose 10 MG; Start 07/17/17 at 21:00 Neomycin/ Polymyxin/ Dexamethasone (Maxitrol Oph Oint) 1 applic QPM BOTH EYES Last administered on 07/23/17 21:37; Admin Dose 1 APPLIC; Start 07/17/17 at 21: 00 Polyethylene Glycol (Miralax) 17 gm DAILY PRN PO CONSTIPATION Last administered on 07/19/17 17:31; Admin Dose 17 GM; Start 07/17/17 at 11:30 Eye Lubricant (Artificial Tears Oph) 1 drop PRN PRN BOTH EYES DRY EYES Last administered on 07/23/17 09:51; Admin Dose 1 DROP; Start 07/17/17 at 11:30 Valproate Sodium (Depakene Liquid Cup) 250 mg TID GTB Last administered on 07/24 12:33; Admin Dose 250 MG; Start 07/17/17 at 13:00 Cholecalciferol (Vitamin D) 2,000 unit DAILY GTB Last administered on 09:32; Admin Dose 2,000 UNIT; Start 07/18/17 at 09:00 Lansoprazole (Prevacid) 30 mg DAILY@06 GTB Last administered on 07/24/17 05:16 ; Admin Dose 30 MG; Start 07/18/17 at 06:00 Multivitamins (Multivitamin) 30 ml DAILY GTB Last administered on 07/24/17 09: 32; Admin Dose 30 ML; Start 07/18/17 at 09:00 Eye Lubricant (Akwa Oint) 1 applic Q4H BOTH EYES Last administered on 13:07; Admin Dose 1 APPLIC; Start 07/17/17 at 13:00 Fluticasone Propionate (Flonase 0.05% Nasal) 1 spray DAILY NASAL Last administered on 07/24/17 09:31; Admin Dose 1 SPRAY; Start 07/18/17 at 09:00 Amikacin Sulfate AMIKACIN PER PHARMACY NOTE XX ; Start 07/19/17 at 12:30 Amikacin Sulfate 350 mg/Sodium Chloride 100 ml @ 102 mls/hr Q12H IVPB Last administered on 07/24/17 03:49; Admin Dose 102 MLS/HR; Start 07/21/17 at 15:30 Sodium Chloride (NS) 1,000 ml @ 100 mls/hr Q10H IV Last administered on 03:44; Admin Dose 100 MLS/HR; Start 07/23/17 at 16:30 Assessment/Plan Chief Complaint/Hosp Course SUBJECTIVE: No acute events overnight. Patient is lying comfortably in bed. He is nonverbal, noncommunicative. No fevers. MICROBIOLOGY: Blood culture on 07/14 grew staph species. Repeat blood cultures negative. Urine culture growing multidrug resistant Pseudomonas and Providencia, both susceptible to amikacin. INDWELLINGS: The patient has trach, PICC. ANTIMICROBIALS: Amikacin. DIAGNOSTICS: Chest x-ray on admission revealed no focal consolidation. PHYSICAL EXAMINATION: GENERAL: Chronically ill-appearing, debilitated young man who is in no distress. HEENT: Head is large in proportion to the body. NECK: Supple. CHEST: Rise is symmetrical. Breath sounds diminished at bases. HEART: S1, S2. ABDOMEN: Soft, bowel sounds present. EXTREMITIES: Wasted, contractures, without cyanosis. ASSESSMENT: 1. Polymicrobial urinary tract infection, possibly colonized. 2. Staph bacteremia, likely contaminant. 3. Chronic respiratory failure. 4. Persistent vegetative state. PLAN: The patient remained stable. Continue present care. Complete Amikacin for 7 days==> last dose tomorrow staff Problems: JEIMY LYNCH NP Jul 24, 2017 14:08
--- NOTE | 2017-07-24 14:38 | PN ---
Date/Time of Note Date/Time of Note DATE: 07/24/17 TIME: 14:37 Assessment/Plan VTE Prophylaxis VTE Prophylaxis Intervention: SCD's Lines/Catheters IV [facility] Saline Lock Urinary Cath still in place: No Assessment/Plan Chief Complaint/Hosp Course Assessment/Plan 1. Acute hypercapnic respiratory failure on Vent - Failed CPAP trial, put on pressure control for transport reasons - Pulmonology on board and appreciate recommendations. - Trach in proper place per CXR - continue aggressive suctioning. Patient produces a large amount of sputum normally as discussed with treating physician at [facility] 2. UTI - Urine culture grew Providencia and pseudomonas - ID consultation appreciated and on Amikacin until tomorrow 3. Hypotension- resolved - stable - Will continue to monitor and bolus as needed 4. Failure to thrive - PEG in place and TF running 5. Chronic vegetative state 6. Junctional rhythm - serial troponins negative - back in sinus rhythm 7. Disposition - Patient stable for discharge back to [facility] on pressure control now -copious drainage around PEG tube site wnl per mother. Problems: Subjective 24 Hr Interval Summary Free Text/Dictation no acute overnight events Exam/Review of Systems Vital Signs Vitals Vital Signs Date Time Temp Pulse Resp B/P Pulse Ox O2 Delivery O2 Flow Rate FiO2 07/24/17 13:00 53 18 100 30 07/24/17 11:28 98.1 96/54 Intake and Output 07/23/17 07/23/17 07/24/17 15:00 23:00 07:00 Intake Total 940 ml 840 ml Output Total 500 ml 800 ml Balance 440 ml 40 ml Exam Constitutional: non-verbal, Trach connected to vent. In a chronic vegetative state. Head: atraumatic, normocephalic Neck: trach in place, no blood appreciated at site of insertion Respiratory: coarse breath sounds, diminished at bases, no wheezing Cardiovascular: nl pulses, regular rate and rhythm Gastrointestinal: soft, nondistended, BS present Musculoskeletal: Deformity with contracture of extremities Results Result Diagram: 07/24/17 0555 07/24/17 1100 Results 24 hrs Laboratory Tests Test 07/24/17 02:30 07/24/17 05:47 07/24/17 05:55 07/24/17 08:28 Amikacin Level Trough Amikacin Level Peak White Blood Count 5.8 Red Blood Count 4.52 L Hemoglobin 12.4 L Hematocrit 38.3 L Mean Corpuscular Volume 84.7 Mean Corpuscular Hemoglobin 27.4 L Mean Corpuscular Hemoglobin Concent 32.4 Red Cell Distribution Width 15.0 H Platelet Count 222 Mean Platelet Volume 13.1 H Neutrophils % 42.1 Lymphocytes % 36.8 Monocytes % 9.8 Eosinophils % 10.5 H Basophils % 0.5 Nucleated Red Blood Cells % 0.0 Neutrophils # 2.5 Lymphocytes # 2.1 Monocytes # 0.6 Eosinophils # 0.6 H Basophils # 0.0 Nucleated Red Blood Cells # 0.0 Sodium Level 141 Potassium Level 5.4 H Chloride Level 111 H Carbon Dioxide Level 22 Anion Gap 13 Blood Urea Nitrogen 9 Creatinine 0.45 L Glucose Level 89 Calcium Level 8.7 Phosphorus Level 4.7 Magnesium Level 1.9 Lab Scanned Report REFERENCE LAB Test 07/24/17 11:00 07/24/17 11:05 Potassium Level 4.8 Lab Scanned Report REFERENCE LAB Medications Medications Current Medications Lorazepam (Ativan) 0.5 mg Q6H PRN IV ANXIETY Last administered on 07/17/17 14: 48; Admin Dose 0.5 MG; Start 07/15/17 at 06:00 Ondansetron HCl (Zofran Inj) 4 mg Q6H PRN IV NAUSEA AND/OR VOMITING; Start at 06:00 Morphine Sulfate (morphine) 2 mg Q4H PRN IV PAIN LEVEL 7-10 Last administered on 07/17/17 02:54; Admin Dose 2 MG; Start 07/15/17 at 06:00 Famotidine (Pepcid Iv) 20 mg Q12 IV Last administered on 07/15/17 08:24; Admin Dose 20 MG; Start 07/15/17 at 09:00; Status Future Hold Acetaminophen (Tylenol Liquid) 650 mg Q4 PRN PEG PAIN LEVEL 1-3 OR FEVER Last administered on 07/16/17 04:33; Admin Dose 650 MG; Start 07/16/17 at 04:30 Baclofen (Lioresal) 25 mg Q6 GTB Last administered on 07/24/17 12:32; Admin Dose 25 MG; Start 07/17/17 at 12:00 Clonidine HCl (Catapres-Tts 1 Patch) 1 patch Q7D TRANSDERM Last administered on 07/24/17 12:37; Admin Dose 1 PATCH; Start 07/17/17 at 11:30 Diazepam (Valium) 3 mg Q6 GTB Last administered on 07/24/17 12:32; Admin Dose 3 MG; Start 07/17/17 at 12:00 Erythromycin Ethylsuccinate (E.e.s (Ped)) 120 mg Q6 GTB Last administered on 12:33; Admin Dose 120 MG; Start 07/17/17 at 18:00 Glycopyrrolate (Robinul) 0.25 mg BID GTB Last administered on 07/24/17 09:33; Admin Dose 0.25 MG; Start 07/17/17 at 11:30 Levetiracetam (Keppra Liq (Ped)) 1,750 mg BID GTB Last administered on 09:33; Admin Dose 1,750 MG; Start 07/17/17 at 11:30 Montelukast Sodium (Singulair) 10 mg QHS GTB Last administered on 07/23/17 21: 39; Admin Dose 10 MG; Start 07/17/17 at 21:00 Neomycin/ Polymyxin/ Dexamethasone (Maxitrol Oph Oint) 1 applic QPM BOTH EYES Last administered on 07/23/17 21:37; Admin Dose 1 APPLIC; Start 07/17/17 at 21: 00 Polyethylene Glycol (Miralax) 17 gm DAILY PRN PO CONSTIPATION Last administered on 07/19/17 17:31; Admin Dose 17 GM; Start 07/17/17 at 11:30 Eye Lubricant (Artificial Tears Oph) 1 drop PRN PRN BOTH EYES DRY EYES Last administered on 07/23/17 09:51; Admin Dose 1 DROP; Start 07/17/17 at 11:30 Valproate Sodium (Depakene Liquid Cup) 250 mg TID GTB Last administered on 07/24 12:33; Admin Dose 250 MG; Start 07/17/17 at 13:00 Cholecalciferol (Vitamin D) 2,000 unit DAILY GTB Last administered on 09:32; Admin Dose 2,000 UNIT; Start 07/18/17 at 09:00 Lansoprazole (Prevacid) 30 mg DAILY@06 GTB Last administered on 07/24/17 05:16 ; Admin Dose 30 MG; Start 07/18/17 at 06:00 Multivitamins (Multivitamin) 30 ml DAILY GTB Last administered on 07/24/17 09: 32; Admin Dose 30 ML; Start 07/18/17 at 09:00 Eye Lubricant (Akwa Oint) 1 applic Q4H BOTH EYES Last administered on 13:07; Admin Dose 1 APPLIC; Start 07/17/17 at 13:00 Fluticasone Propionate (Flonase 0.05% Nasal) 1 spray DAILY NASAL Last administered on 07/24/17 09:31; Admin Dose 1 SPRAY; Start 07/18/17 at 09:00 Amikacin Sulfate AMIKACIN PER PHARMACY NOTE XX ; Start 07/19/17 at 12:30 Amikacin Sulfate 350 mg/Sodium Chloride 100 ml @ 102 mls/hr Q12H IVPB Last administered on 07/24/17 03:49; Admin Dose 102 MLS/HR; Start 07/21/17 at 15:30 Sodium Chloride (NS) 1,000 ml @ 100 mls/hr Q10H IV Last administered on 03:44; Admin Dose 100 MLS/HR; Start 07/23/17 at 16:30 EMELY PARK Jul 24, 2017 14:38
[2017-07-25] MEDS ORDERED: [UNRECOGNIZED DRUG - CODE] BOTH EYES (12:44)
[2017-07-25] MEDS ORDERED: LEVE500S8 GTB (12:48)
== END 2017-07-24 20:40 | DRG 207 ==
LOC: E/R 20:08 → ICU 21:38 → TEL 07-15 20:17
PROVIDERS: ADMIT Internal Medicine; ATTEND Internal Medicine
PROC: 5A1955Z Respiratory Ventilation, Greater than 96 Consecutive Hours (ICD-10-PCS; principal; 2017-07-15)
PROC: 0B21XFZ Change Tracheostomy Device in Trachea, External Approach (ICD-10-PCS; 2017-07-15)
DX: J96.22 Acute and chronic respiratory failure with hypercapnia (principal); G93.49 Other encephalopathy; R40.3 Persistent vegetative state; E87.0 Hyperosmolality and hypernatremia; N39.0 Urinary tract infection, site not specified; Z43.0 Encounter for attention to tracheostomy; E86.0 Dehydration; Z93.1 Gastrostomy status; B96.5 Pseudomonas (aeruginosa) (mallei) (pseudomallei) as the cause of diseases classified elsewhere; B96.89 Other specified bacterial agents as the cause of diseases classified elsewhere
CPT/HCPCS: 36415; 36600; 71010; 80048; 80053; 80069; 80150; 80202; 81003; 82550; 82553; 82803; 83605; 83735; 84100; 84132; 84484; 85025; 85610; 85730; 87040; 87081; 87086; 93005; 94002; 94003; 94640; 94664; 96374; 96375; J0278; J0692; J1940; J2060; J2250; J2270; J3370; J3475; J7030; J7040; J7050; J7070

== ENCOUNTER 2017-07-25 10:59 | Emergency (ER) | END 2017-07-25 15:21 | disposition home or self-care (01) | DX: J98.09 Other diseases of bronchus, not elsewhere classified (principal) | CPT/HCPCS: 36600; 71010; 82803; 94002; Z7502; Z7610 ==

== ENCOUNTER 2017-07-25 17:25 | Inpatient (IN) | payer MEDICAID, OTHER ==
[~2017-07-25] VITALS: Ht 137.2 cm; Wt 59.6 kg
[~2017-07-25 17:25] MED LIST: AMIN30LI GTB; Amikacin Iv Per Pharmacy XX; BACL10TA GTB; CATTTS1 TD; DIAZ2TAB3 GTB; ERGO2000 GTB; ERYT500 GTB; ESOM20CA GTB; FOLI1TAB7 GTB; KEP100S GTB; LACR35O BOTH EYES; LEVE500S8 GTB; MONT10TA21 GTB; NASO17 NASAL; NEO/3.5O BOTH EYES; POLY15DR25 BOTH EYES; POLY17PO6 PO; ROB1 GTB; SODI1TAB42 PO; VLP250480 GTB; [UNRECOGNIZED DRUG - CODE] BOTH EYES
[2017-07-25] MEDS ORDERED: SOD CHLORIDE 0.9% 500 ML IV STA (17:54)
[2017-07-25] MEDS ORDERED: SOD CHLORIDE 0.9% 100 ML ONE (18:58)
[2017-07-25] MEDS ORDERED: IOHEXOL 350MG/ML 50 ML BTL ONE (18:58)
[2017-07-25] MEDS ORDERED: IOHEXOL 100 ML ONE (18:58)
[2017-07-25 19:01] LABS: BASOPHILS % 0.5 % (0.0-2.0); EOSINOPHILS # 0.2 10^3/ul (0.0-0.5); EOSINOPHILS % 3.5 % (0.0-7.0); HEMATOCRIT 42.9 % (42.0-52.0); HEMOGLOBIN 13.6 g/dl (14.0-18.0); LYMPHOCYTES # 1.7 10^3/ul (0.8-2.9); LYMPHOCYTES % 27.9 % (18.0-55.0); MEAN CORPUSCULAR HEMOGLOBIN 27.1 pg (29.0-33.0); MEAN CORPUSCULAR HGB CONC 31.7 g/dl (32.0-37.0); MEAN CORPUSCULAR VOLUME 85.6 fl (72.0-104.0); MEAN PLATELET VOLUME 12.8 fl (7.4-10.4); MONOCYTE # 0.9 10^3/ul (0.3-0.9); MONOCYTES % 13.9 % (0.0-13.0); NEUTROPHIL # 3.4 10^3/ul (1.6-7.5); PLATELET COUNT 234 10^3/UL (140-415); RED BLOOD COUNT 5.01 10^6/ul (4.70-6.10); RED CELL DISTRIBUTION WIDTH 14.7 % (11.5-14.5); WHITE BLOOD COUNT 6.2 10^3/ul (4.8-10.8)
[2017-07-25 19:24] LABS: CALCIUM 9.4 mg/dl (8.4-10.2); CREATININE 0.59 mg/dl (0.61-1.24); POTASSIUM 4.6 mmol/L (3.5-5.1)
[2017-07-25] MEDS ORDERED: LEVETIRACETAM 1000 MG (PMX) 100 ML IVPB ONE (19:30)
[2017-07-25] MEDS ORDERED: LORAZEPAM 2 MG INJ IV ONE (21:30)
[2017-07-25] MEDS ORDERED: morphine 4 MG/ML VIAL IV STA (23:03)
--- NOTE | 2017-07-25 23:23 | RADRPT ---
PROCEDURE: CTA CHEST WITH CONTRAST CLINICAL INDICATION: 21-year-old male with shortness of breath. TECHNIQUE: The study was performed utilizing a [employer] VCT 64-slice CT scanner. Direct axi al sections were obtained from the thoracic inlet through the chest to the upper abdomen with a bolu s injection of 110 cc of Omnipaque-350 nonionic contrast material. Sagittal, coronal and maximal int ensity projections re-formations were obtained. One or more of the following dose reduction techniqu es were utilized: automated exposure control, adjustment of the mA and/or kV according to patient's size or use of iterative reconstruction technique. The images were reviewed on a PACS workstation. CTD/vol = 42.9 mGy; Total Exam DLP = 599.3 mGy-cm. COMPARISON: Chest x-ray July 25, 2017. FINDINGS: There is a tracheostomy tube in place. There is soft tissue within the superior mediastinum presumab ly representing residual thymic tissue. The aorta is without aneurysmal dilatation or dissection. Th ere are small lymph nodes seen within the mediastinum which are not pathologic by size criteria. The central pulmonary arteries are without evidence for filling defect to suggest pulmonary embolus or thrombus. There is incomplete opacification of the distal pulmonary arterial branches with respirato ry artifact limiting the evaluation. There is diffuse interstitial infiltrates with more focal conso lidation within the superior segment of the right lower lobe. There is minimal right pleural effusio n. There is diffuse innumerable small nodular densities scattered throughout the lungs the largest i n the right upper lobe measures 7 x 8 mm. The largest in the right middle lobe measures approximatel y 4 x 5 mm. The largest in the right lower lobe measures 13 x 11 mm. The largest in the left upper lobe measures approximately 9 x 7 mm. There is no evidence for a pneumothorax. The osseous structure s are unremarkable. Scans through the upper abdomen reveals that the upper liver is unremarkable. The adrenal glands hav e a normal appearance. The upper kidneys are functional and are without evidence for obstruction. Th ere is a partially visualized gastrostomy tube within the stomach. There is prominent gas identified beneath the anterior aspect of the right hemidiaphragm most likely representing colonic interpositi on. IMPRESSION: 1. No CTA evidence for thoracic aortic aneurysm/dissection or central pulmonary embolus. 2. Diffuse interstitial infiltrates with more focal consolidation within the superior segment of th e right lower lobe with extensive diffuse nodular densities scattered throughout the lungs. This may be secondary to recurrent aspiration pneumonia. Clinical correlation is necessary. 4. Minimal right pleural effusion. 5. Tracheostomy tube. 6. Colonic interposition. 7. Gastrostomy tube. .Neville Renteria MD, MD Date Time Electronically viewed and signed by .Neville Renteria MD, MD on 07/25/2017 23:22 .Silvana/
[2017-07-25] MEDS ORDERED: CEFEPIME 2GM/50 ML (PMX) 50 ML IVPB ONE (23:28)
[2017-07-25] MEDS ORDERED: metroNIDAZOLE 500 MG/NS (PMX) 100 ML IVPB ONE (23:30)
[2017-07-25] MEDS ORDERED: SODIUM CHLORIDE 0.9% 1L BAG IV* STA (23:31)
[2017-07-26] VITALS (24 sets, daily range): BP systolic 110–149; BP diastolic 59–89; PULSE 53–109; RESP 14–23; Ht 137.2 cm; Wt 59.6 kg
[2017-07-26] MEDS ORDERED: ACETAMINOPHEN 325 MG TAB PO PRN
--- NOTE | 2017-07-26 00:03 | ERD ---
ER Documentation Chief Complaint Chief Complaint BIBA FOR RECHECK,FACILTY REFUSED TO TAKE Pt BACK,Pt NOT ON HIS BASELINE YET HPI This 21-year-old, chronic debilitated, trach ventilator dependent patient was sent in from his facility for reported saturation in the 80s. He had been seen earlier this morning for the same and was discharged after normal blood gas. Neither time did EMS have any abnormal saturation readings, noted the emergency room. Patient himself cannot provide any history. No fevers are reported. ROS Obtainable. Medications Home Meds Reported Medications Levetiracetam* (Keppra*) 500 Mg/5 Ml Solution, 1750 MG GTB BID, BOTTLE 07/25/17 Neomycin/Polymyxin/Dexameth* (Maxitrol*) 3.5 Gm Oint, 1 APPLIC BOTH EYES QPM, EA 07/25/17 Ergocalciferol (Vitamin D2) (VITAMIN D2) 2,000 Unit Tablet, 2000 UNIT GTB DAILY , TAB 07/15/17 Clonidine Patch (CATAPRES PATCH) 0.1 Mg/24 Hr Patch, 1 PATCH TD Q7D, #4 PATCH.WK 07/15/17 Baclofen* (Baclofen*) 10 Mg Tablet, 25 MG GTB Q6, TAB 07/15/17 Erythromycin (Erythromycin) 500 Mg Tabec, 120 MG GTB Q6, TAB 07/15/17 Mineral Oil/Lanolin Oil (Lacri-Lube) 3.5 Gm Oint, 1 APPLIC BOTH EYES Q4H WHILE AWAKE, #1 EA 07/15/17 Mometasone Furoate* (Nasonex*) 50 Mcg/[place] - 17 Gm [place].pump, 1 SPRAY NASAL DAILY, #1 BOTTLE TO EACH NOSTRIL 07/15/17 Diazepam* (Diazepam*) 2 Mg Tablet, 3 MG GTB Q6, TAB 07/15/17 Polyethylene Glycol* (Miralax*) 17 Gm Powd.pack, 17 GM PO DAILY Y for CONSTIPATION, #30 PACKET 07/15/17 Polyvinyl Alcohol (Tears Again) 15 Ml Drops, 1 DRP BOTH EYES PRN, BOTTLE 07/15/17 Amino Acids/Protein Hydrolys (PRO-STAT LIQUID) 30 Ml Liquid.pkt, 30 ML GTB DAILY 07/15/17 Glycopyrrolate* (Robinul*) 1 Mg Tab, 250 MCG GTB BID, TAB 07/15/17 Valproic Acid* (Valproic Acid* Liq) 250 Mg/5 Ml Syrup, 250 MG GTB TID, ML 07/15/17 Folic Acid/Mv,Fe,Min (Centrum Chewable Tablet) 1 Each Tab.chew, 1 EACH GTB DAILY , TAB.CHEW 07/15/17 Esomeprazole Mag Trihydrate (Nexium) 20 Mg Capsule.dr, 20 MG GTB BID, #30 CAP 07/15/17 Discontinued Reported Medications Montelukast Sodium* (Singulair*) 10 Mg Tablet, 10 MG GTB QHS, #30 TAB 07/15/17 Sodium Chloride* (Nacl*) 1 Gm Tab, 60 MEQ PO QID, TAB 07/15/17 Levetiracetam* (Keppra* (Ped)) 100 Mg/Ml Liq, 1750 MG GTB BID for 30 Days, BOTTLE 07/15/17 Kobe/Polymyx B Sulf/Dexameth (Maxitrol Eye Ointment) 3.5 Gm Oint..gm., 1 INCH BOTH EYES QPM 07/15/17 Discontinued Scripts [Amikacin Iv Per Pharmacy] 1 EA EACH No Conflict Check, 0 EA XX NOTE for 5 Days Prov:EMELY PARK 07/23/17 Allergies Allergies: Coded Allergies: famotidine (Unverified Allergy, Unknown, 07/25/17) PMhx/Soc History of Surgery: Yes (Bilat hips, trach & PEG, Nisson, Brain) Anesthesia Reaction: No Hx Neurological Disorder: Yes (Closed Head Injury) Hx Respiratory Disorders: Yes (trach) Hx Cardiac Disorders: No Hx Psychiatric Problems: No Hx Miscellaneous Medical Probl: Yes (Vegetative state ) Hx Alcohol Use: No Hx Substance Use: No Hx Tobacco Use: No Smoking Status: Never smoker Physical Exam Vitals Vital Signs Date Time Temp Pulse Resp B/P Pulse Ox O2 Delivery O2 Flow Rate FiO2 07/25/17 22:07 77 15 117/77 Mechanical Ventilator 07/25/17 21:20 91 14 100 30 07/25/17 19:03 66 16 100 30 07/25/17 18:55 65 25 100 30 07/25/17 17:53 75 22 100 30 07/25/17 17:47 99.1 91 25 126/87 98 Physical Exam Const: [] No obvious distress Head: Atraumatic Eyes: Normal Conjunctiva ENT: Normal External Ears, Nose and Mouth. Neck: Trach in place with site clean dry and intact. Resp: CARE is transmitted upper airway breath sounds, good air movement. Regional tachypnea. Cardio: Regular rate and rhythm, no murmurs Abd: Soft, non tender, non distended. Normal bowel sounds Skin: No petechiae or rashes Back: No midline or flank tenderness Ext: No cyanosis, or edema distal pulses intact all 4 extremities Neur: Awake and alert, unable to perform complete neurological exam secondary to debilitated status, patient does respond to pain and flinches during IV starts per Result Diagram: 07/25/170 07/25/17 184 Results 24 hrs Laboratory Tests Test 07/25/17 18:40 White Blood Count 6.210^3/ul Red Blood Count 5.0110^6/ul Hemoglobin 13.6g/dl Hematocrit 42.9% Mean Corpuscular Volume 85.6fl Mean Corpuscular Hemoglobin 27.1pg Mean Corpuscular Hemoglobin Concent 31.7g/dl Red Cell Distribution Width 14.7% Platelet Count 72963^3/UL Mean Platelet Volume 12.8fl Neutrophils % 54.0% Lymphocytes % 27.9% Monocytes % 13.9% Eosinophils % 3.5% Basophils % 0.5% Nucleated Red Blood Cells % 0.0/100WBC Neutrophils # 3.410^3/ul Lymphocytes # 1.710^3/ul Monocytes # 0.910^3/ul Eosinophils # 0.210^3/ul Basophils # 0.010^3/ul Nucleated Red Blood Cells # 0.010^3/ul Sodium Level 144mmol/L Potassium Level 4.6mmol/L Chloride Level 108mmol/L Carbon Dioxide Level 24mmol/L Anion Gap 17 Blood Urea Nitrogen 14mg/dl Creatinine 0.59mg/dl Glucose Level 80mg/dl Calcium Level 9.4mg/dl B-Type Natriuretic Peptide 164PG/ML Current Medications Medications (Trade) Dose Ordered Sig/Dona Route PRN Reason Start Time Stop Time Status Last Admin Dose Admin Sodium Chloride (NS) 500 ml @ 500 mls/hr Q1H STAT IV 07/25/17 17:54 07/25/17 18:53 DC 07/25/17 18:31 IV Flush 10 ml 10 ml STK-MED ONCE .ROUTE 11/9/17 18:58 07/25/17 18:59 DC Sodium Chloride 100 ml @ ud STK-MED ONCE .ROUTE 07/25/17 18:58 07/25/17 18:59 DC Iohexol (Omnipaque) 100 ml @ ud STK-MED ONCE .ROUTE 07/25/17 18:58 07/25/17 18:59 DC Iohexol 50 ml 50 ml STK-MED ONCE .ROUTE 07/25/17 18:58 07/25/17 18:59 DC Levetiracetam (Keppra 1,000mg/ 100ml (Pmx)) 100 ml @ 400 mls/hr ONCE ONCE IVPB 07/25/17 19:30 07/25/17 19:44 DC 07/25/17 19:30 Lorazepam (Ativan) 2 mg ONCE ONCE IV 07/25/17 21:30 07/25/17 21:31 DC 07/25/17 21:05 Morphine Sulfate 4 mg 4 mg ONCE STAT IV 07/25/17 23:03 07/25/17 23:04 DC 07/25/17 23:09 Cefepime HCl 50 ml @ 100 mls/hr ONCE ONCE IVPB 07/25/17 23:28 07/25/17 23:57 Metronidazole (Flagyl 500 Mg (Pmx)) 100 ml @ 100 mls/hr ONCE ONCE IVPB 07/25/17 23:30 07/26/17 00:29 Sodium Chloride (NS) 1,850 ml BOLUS OVER 2 HOURS STAT IV* 07/25/17 23:31 07/25/17 23:32 DC Ondansetron HCl (Zofran Inj) 4 mg ER BRIDGE PRN IV NAUSEA AND/OR VOMITING 07/26/17 00:00 07/26/17 23:59 Acetaminophen (Tylenol Tab) 650 mg ER BRIDGE PRN PO MILD PAIN/FEVER 07/26/17 00:00 07/26/17 23:59 Procedures/MDM Desaturation at intermediate. Possible aspiration pneumonia. Patient does have occasional increased respiratory rates. He does have seizures with 2 witnessed seizures in the emergency room. The patient does have frequent seizures and is on Keppra. He was loaded with 1 g of Keppra in the emergency room. Was given 2 mg of Ativan to abort the seizure was placing an IV line. He technically meets sepsis criteria but this was not diagnosed until his CTA returned at 2300. He was then given cefepime and Flagyl for possible aspiration pneumonia. I do believe it is possible the patient does not have any infection or any acute pathology. He will be monitored in telemetry for any further signs of desaturation. Signs of acute cardiac ischemia. Cultures were obtained. Dr. padgett is admitting EKG interpretation: Normal sinus rhythm rate 65, indeterminate axis, no ST or T- wave changes concerning for acute ischemia, inverted T-wave in lead III only, normal intervals. 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 Ultrasound-guided peripheral IV line insertion: After cleaning the patient's right upper arm with alcohol I inserted extended Angiocath cath, 18-gauge, into the patient's right basilic vein. There is good blood flow medications were given to the same line without difficulty. Flushed well. Patient rated the procedure well with no complications Critical care time greater than 35 minutes: This includes treatment of increased respiratory rate and possible perceived respiratory distress and patient with sepsis criteria, very careful fluid administration, multiple visits patient's bedside to reassess status, review of chart, discussion with admitting doctor. This does not include any billable procedures. Departure Diagnosis: Primary Impression: Sepsis due to pneumonia Condition: DUONG Paz DO Jul 26, 2017 00:03
[2017-07-26] MEDS ORDERED: ALBUTEROL/IPRATROPIUM (NEB) 3 ML AMP HHN PRN (01:00)
[2017-07-26] MEDS ORDERED: ARTIFICIAL TEARS 15 ML OPH BOTH EYES SCH (01:00)
[2017-07-26] MEDS: NEOMYC/POLYMYX/DEXAM 3.5GM OPH OINT BOTH EYES SCH ×5 (01:00→21:10)
[2017-07-26] MEDS: OCULAR LUBRICANT 3.5 GM OPH OINT BOTH EYES SCH ×6 (01:00→21:10)
[2017-07-26] MEDS ORDERED: ACETAMINOPHEN 325 MG TAB GTB PRN (01:00)
[2017-07-26] MEDS ORDERED: ONDANSETRON 4 MG INJ IV PRN ×2 (01:00)
[2017-07-26] MEDS ORDERED: NACL 0.9% 3 ML SYG IV SCH (01:00)
[2017-07-26] MEDS ORDERED: POLYETHYLENE GLYCOL 17 GM PACKET PO PRN (01:00)
[2017-07-26] MEDS ORDERED: CLONIDINE 0.1 MG/24 HR PATCH TRANSDERM SCH (01:00)
[2017-07-26 03:53] LABS: BASOPHILS % 0.4 % (0.0-2.0); EOSINOPHILS # 0.3 10^3/ul (0.0-0.5); EOSINOPHILS % 3.7 % (0.0-7.0); HEMATOCRIT 40.1 % (42.0-52.0); HEMOGLOBIN 12.8 g/dl (14.0-18.0); LYMPHOCYTES # 1.9 10^3/ul (0.8-2.9); LYMPHOCYTES % 27.9 % (18.0-55.0); MEAN CORPUSCULAR HGB CONC 31.9 g/dl (32.0-37.0); MEAN CORPUSCULAR VOLUME 84.6 fl (72.0-104.0); MEAN PLATELET VOLUME 11.8 fl (7.4-10.4); MONOCYTE # 0.8 10^3/ul (0.3-0.9); MONOCYTES % 12.2 % (0.0-13.0); NEUTROPHIL # 3.8 10^3/ul (1.6-7.5); NEUTROPHILS % 55.5 % (30.0-74.0); PLATELET COUNT 206 10^3/UL (140-415); RED BLOOD COUNT 4.74 10^6/ul (4.70-6.10); RED CELL DISTRIBUTION WIDTH 14.6 % (11.5-14.5); WHITE BLOOD COUNT 6.8 10^3/ul (4.8-10.8)
[2017-07-26 03:57] LABS: ALBUMIN 3.7 g/dl (3.3-4.9); ALBUMIN/GLOBULIN RATIO 0.94; BILIRUBIN,INDIRECT 0.6 mg/dl (0-1.1); BILIRUBIN,TOTAL 0.6 mg/dl (0.2-1.3); CALCIUM 8.7 mg/dl (8.4-10.2); CREATININE 0.52 mg/dl (0.61-1.24); TOTAL PROTEIN 7.6 g/dl (6.1-8.1)
[2017-07-26] MEDS: LANSOPRAZOLE 30 MG CAP GTB SCH ×2 (05:46→18:22)
[2017-07-26] MEDS: BACLOFEN 10 MG TAB GTB SCH ×3 (05:46→18:22)
--- NOTE | 2017-07-26 05:56 | HP ---
Date/Time of Note Date/Time of Note DATE: 07/26/17 TIME: 05:25 Assessment/Plan VTE Prophylaxis VTE Prophylaxis Intervention: heparin Lines/Catheters IV Catheter Type [facility]from [facility] Mid Line Urinary Cath still in place: No Assessment/Plan Assessment/Plan ASSESSMENT 21-year-old male with history of chronic encephalopathy, chronic trach/vent dependent respiratory failure who was sent from a retirement facility for hypoxia with O2 sat of 80% 1. Hypoxic respiratory failure, aspiration pneumonia vs increased secretions -Reportedly, patient was hypoxic with oxygen saturation of 80% while he was at the SNF, which normalized after his trach was suctioned. -IV antibiotic -Continue frequent suctioning -Continue vent/trach support -Pulmonary consult 2. Chronic vent/trach dependent respiratory failure -See #1 for management plan -Size of patient's tracheostomy tube needs evaluation. Will let pulmonary decide if this is going to require inpatient ENT evaluation 3. Possible aspiration pneumonia -IV antibiotic -Follow-up tracheostomy aspirate culture results 4. Chronic vegetative state -Continue supportive care HPI/ROS Admit Date/Time Admit Date/Time Jul 25, 2017 at 23:40 Hx of Present Illness This is a 21-year-old male with history of chronic encephalopathy, chronic trach /vent dependent respiratory failure who was sent from a retirement facility for hypoxia. Reportedly, when EMS arrived O2 sat was in 80s. His tracheostomy was suctioned in the ER and after that oxygen saturation was 100%. He is known to have significant amount of secretions quite for a long time. He was then discharged back to SNF, but was sent right back, again for hypoxia with oxygen saturation in the low 80s. His initial chest x-ray showed Patchy bilateral perihilar and lower lobe infiltrates. On the second ER visit, CT pulmonary angiogram was done which showed Diffuse interstitial infiltrates with more focal consolidation within the superior segment of the right lower lobe with extensive diffuse nodular densities scattered throughout the lungs, possibly from aspiration pneumonia. He has been afebrile with normal white count. Also note, the patient was just admitted here and in fact he was discharged 2 days ago after he was initially admitted for tracheostomy malfunction. His trach tube was replaced in the ER and after that he did have bleeding through his trach which had resolved during hospitalization. He was also treated for UTI. . His chest x-ray is unchanged compared with prior. He is afebrile. His blood gas shows mild hypercapnia, but is otherwise unremarkable. Vent was adjusted accordingly. The patient . He likely requires increased suctioning at the assisted. The mother expressed concern about the size of the patient's trach. I spoke with the stock chaser, Dr. Garcia, who saw the patient while he was hospitalized. Dr. Garcia states that the patient is stable to follow- up at [facility] with ENT for resizing of trach as an outpatient, and that there was no problem related to the size of the trach such as air leak. Patient's trach was replaced per pulmonology and was placed on pressure control ventilation per recommendations from retirement facility to accept. Patient also had UTI that grew Providencia stuartii and pseudomonas aeruginosa and subsequently placed patient on infectious disease amikacin for a total of 7 days. Patient's first dose of amikacin was July 21 and will need 7 days from that date. Patient's respiratory status improved and patient's hypotension also resolved. Patient was placed back on home medications and is stable to transfer back to retirement facility. Patient has considerable secretions, however upon speaking with retirement facility MD and mother at bedside it is quite normal for patient as well as his increased drainage on his GI site PEG. Information is obtained from the mother who was at the bedside and from the ER physician and chart review. When he presented to the ER, his trach tube was replaced with normalization of oxygen saturation. He has however been bleeding through his trach since his tracheostomy tube was replaced. He had about a 200 cc of blood that was suctioned over a period of 7 hours. According to his mother, he fell down when he was 4 years old and since then has been in a chronic vegetative state and has been trach/vent dependent. Chest x-ray showed left lower lung atelectasis versus airspace disease. PMH/Family/Social Past Surgical History Past Surgical Hx: other Social History Smoking Status: Never smoker Exam/Review of Systems Vital Signs Vitals Vital Signs Date Time Temp Pulse Resp B/P Pulse Ox O2 Delivery O2 Flow Rate FiO2 07/26/17 05:17 102 18 100 30 07/26/17 00:00 105/66 Mechanical Ventilator 07/25/17 17:47 99.1 Exam Constitutional: other (In a chronic vegetative state. Trach/vent dependent) Head: atraumatic, normocephalic Neck: other (Trach tube in place) Respiratory: diminished breath sounds Cardiovascular: other (Tachycardic with regular rhythm) Gastrointestinal: other (G-tube in place), soft Extremities: normal pulses Neurological: other (In a chronic vegetative state) Labs Result Diagram: 07/26/177 07/26/17326 Medications Medications Current Medications Ondansetron HCl (Zofran Inj) 4 mg Q6H PRN IV NAUSEA AND/OR VOMITING; Start 07/02 at 01:00 Acetaminophen (Tylenol Tab) 650 mg Q6H PRN GTB PAIN LEVEL 1-3 OR FEVER; Start 07/26/17 at 01:00 Heparin Sodium (Porcine) (Heparin (5000 Units/0.5 ml)) 5,000 unit Q12 SC ; Start 07/26/17 at 09:00 Baclofen (Lioresal) 25 mg Q6 GTB ; Start 07/26/17 at 06:00 Clonidine HCl (Catapres-Tts 1 Patch) 1 patch Q7D TRANSDERM ; Start 07/26/17 at 01:00 Diazepam (Valium) 3 mg Q6 GTB ; Start 07/26/17 at 06:00 Glycopyrrolate (Robinul) 0.25 mg BID GTB ; Start 07/26/17 at 09:00 Levetiracetam (Keppra Liquid) 1,750 mg BID GTB ; Start 07/26/17 at 09:00 Neomycin/ Polymyxin/ Dexamethasone (Maxitrol Oph Oint) 1 applic QPM BOTH EYES ; Start 07/26/17 at 21:00 Polyethylene Glycol (Miralax) 17 gm DAILY PRN PO CONSTIPATION; Start 07/26/17 at 01:00 Eye Lubricant (Artificial Tears Oph) 1 drop PRN BOTH EYES ; Start 07/26/17 at 01:00 Valproate Sodium (Depakene Liquid Cup) 250 mg TID GTB ; Start 07/26/17 at 09:00 Lansoprazole (Prevacid) 30 mg BID@06,18 GTB ; Start 07/26/17 at 06:00 Miscellaneous Information 1 spray 1 spray DAILY NASAL ; Start 07/26/17 at 09:00 ; Status UNV Levofloxacin/ Dextrose (Levaquin 500mg/ D5W 100 ml (Pmx)) 100 ml @ 100 mls/hr DAILY IVPB ; Start 07/26/17 at 09:00 LIBRA GARCIA MD Jul 26, 2017 05:39
[2017-07-26] MEDS ORDERED: VANCOMYCIN IV PER PHARMACY XX SCH (06:00)
[2017-07-26] MEDS: DIAZEPAM 2 MG TAB GTB SCH ×3 (06:01→18:22)
[2017-07-26 06:20] LABS: AADO2 Arterial 76.8 mmHg (7.0-24.0); Allen Test ACCEPTAB; Arterial Base Excess -0.6 mmol/L (-3.0-3); Arterial COHb 0.2 % (0.0-3.0); Arterial Fraction of Oxyhgb 96.8 % (93.0-99.0); Arterial MetHb 0.4 % (0.0-1.5); Arterial Total Hemglobin 13.9 g/dl (12.0-18.0); MODE VENT - PC
[2017-07-26] MEDS ORDERED: VANCOMYCIN 1.25 GM in SOD CHLORIDE 0.9% 250 ML IVPB ONE (06:30)
[2017-07-26] MEDS: VALPROIC ACID LIQUID CUP 250 MG/5 ML CUP GTB SCH ×3 (08:24→21:09)
[2017-07-26] MEDS: LEVETIRACETAM (100 MG/ML) 5ML CUP GTB SCH ×2 (08:24→21:11)
[2017-07-26] MEDS: GLYCOPYRROLATE 1 MG TAB GTB SCH ×2 (08:25→21:26)
[2017-07-26] MEDS: FLUTICASONE 0.05% 16 GM NAS SPRAY NASAL SCH (08:25)
[2017-07-26] MEDS: LEVOFLOXACIN 500MG/D5W (PMX) 100 ML IVPB SCH (08:25)
[2017-07-26] MEDS: CEFEPIME 1GM/50 ML (PMX) 50 ML IVPB SCH ×2 (08:25→21:09)
[2017-07-26] MEDS: HEPARIN 5,000 UNIT/0.5 ML VIAL SC SCH ×2 (08:29→21:24)
--- NOTE | 2017-07-26 13:14 | CONS ---
Date/Time of Note Date/Time of Note DATE: 07/26/17 TIME: 13:10 Assessment/Plan Assessment/Plan Problems: (1) Sepsis due to pneumonia Status: Acute Comment: This young gentleman is admitted with infection and picture of sepsis. As such given his presentation he does need to be in the hospital. And therefore CCS admission is appropriate. Full care as per hospital team and the plans have already delineated Consultation Date/Type/Reason Admit Date/Time Jul 25, 2017 at 23:40 Date of Consultation: Jul 26, 2017 Type of Consultation: CCS Reason for Consultation CCS certification for admission Referring Provider: LIBRA JUDD MD Hx of Present Illness 21-year-old -[place]ian male in a chronic vegetative state for 17 years. Trach and PEG dependent. He was recently admitted here and then discharge. Prior to that he had been living at [facility] and had frequently been admitted at outside facilities. He has once again developed some pulmonary issues requiring admission and is come in. Specifically there is mucous plugging. 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 He has family that is extensively involved. Her plan is for full resuscitative status Exam/Review of Systems Vital Signs Vitals Vital Signs Date Time Temp Pulse Resp B/P Pulse Ox O2 Delivery O2 Flow Rate FiO2 07/26/17 12:00 68 07/26/17 11:18 99.4 16 110/59 99 07/26/17 11:05 30 07/26/17 00:00 Mechanical Ventilator Results See dictation from emergency room physician and from Dr. Judd. Result Diagram: 07/26/17 0327 07/26/17 0327 Results 24 hrs Laboratory Tests Test 07/25/17 18:40 07/26/17 00:05 07/26/17 00:54 07/26/17 03:27 White Blood Count 6.2 6.8 Red Blood Count 5.01 4.74 Hemoglobin 13.6 L 12.8 L Hematocrit 42.9 40.1 L Mean Corpuscular Volume 85.6 84.6 Mean Corpuscular Hemoglobin 27.1 L 27.0 L Mean Corpuscular Hemoglobin Concent 31.7 L 31.9 L Red Cell Distribution Width 14.7 H 14.6 H Platelet Count 234 206 Mean Platelet Volume 12.8 H 11.8 H Neutrophils % 54.0 55.5 Lymphocytes % 27.9 27.9 Monocytes % 13.9 H 12.2 Eosinophils % 3.5 3.7 Basophils % 0.5 0.4 Nucleated Red Blood Cells % 0.0 0.0 Neutrophils # 3.4 3.8 Lymphocytes # 1.7 1.9 Monocytes # 0.9 0.8 Eosinophils # 0.2 0.3 Basophils # 0.0 0.0 Nucleated Red Blood Cells # 0.0 0.0 Sodium Level 144 146 H Potassium Level 4.6 4.0 Chloride Level 108 108 Carbon Dioxide Level 24 24 Anion Gap 17 H 18 H Blood Urea Nitrogen 14 12 Creatinine 0.59 L 0.52 L Glucose Level 80 86 Calcium Level 9.4 8.7 B-Type Natriuretic Peptide 164 H Lactic Acid Level 1.1 3.2 *H 1.5 Total Bilirubin 0.6 Direct Bilirubin 0.00 Indirect Bilirubin 0.6 Aspartate Amino Transf (AST/SGOT) 27 Alanine Aminotransferase (ALT/SGPT) 32 Alkaline Phosphatase 78 Total Protein 7.6 Albumin 3.7 Globulin 3.90 H Albumin/Globulin Ratio 0.94 Test 07/26/17 05:25 Blood Gas Specimen Source Blood arterial Arterial Blood Date Drawn 07/26/2017 6:00:14 AM Arterial Blood pH (Temp corrected) 7.435 Arterial Blood pCO2 (Temp correct) 35.1 Arterial Blood pO2 (Temp corrected) 95.9 Arterial Blood HCO3 23.0 Arterial Blood Base Excess -0.6 Arterial Blood Oxygen Saturation 97.4 Thuan Test ACCEPTAB Arterial Blood Gas Puncture Site Left Radial Arterial Blood Carboxyhemoglobin 0.2 Arterial Blood Methemoglobin 0.4 Blood Gas A-a O2 Differential 76.8 H Oxyhemoglobin Percent 96.8 Total Hemoglobin 13.9 Blood Gas Temperature 37.0 Blood Gas Respiration Rate 14.0 Blood Gas Actual Respiration Rate 16 Blood Gas Modality VENT - PC FiO2 30.0 Blood Gas High PEEP Setting 30.0 Blood Gas Low PEEP Setting 5.0 Blood Gas Notified Whom MA Blood Gas Notified Time 07/26/2017 6:20:08 AM Medications Medications Current Medications Ondansetron HCl (Zofran Inj) 4 mg Q6H PRN IV NAUSEA AND/OR VOMITING; Start 07/02 at 01:00 Acetaminophen (Tylenol Tab) 650 mg Q6H PRN GTB PAIN LEVEL 1-3 OR FEVER; Start 07/26/17 at 01:00 Heparin Sodium (Porcine) (Heparin (5000 Units/0.5 ml)) 5,000 unit Q12 SC Last administered on 07/26/17 08:29; Admin Dose 5,000 UNIT; Start 07/26/17 at 09: 00 Baclofen (Lioresal) 25 mg Q6 GTB Last administered on 07/26/17 12:18; Admin Dose 25 MG; Start 07/26/17 at 06:00 Clonidine HCl (Catapres-Tts 1 Patch) 1 patch Q7D TRANSDERM Last administered on 07/26/17 05:58; Admin Dose 1 PATCH; Start 07/26/17 at 01:00 Diazepam (Valium) 3 mg Q6 GTB Last administered on 07/26/17 06:01; Admin Dose 3 MG; Start 07/26/17 at 06:00 Glycopyrrolate (Robinul) 0.25 mg BID GTB Last administered on 07/26/17 08:25 ; Admin Dose 0.25 MG; Start 07/26/17 at 09:00 Levetiracetam (Keppra Liquid) 1,750 mg BID GTB Last administered on 07/26/17 08:24; Admin Dose 1,750 MG; Start 07/26/17 at 09:00 Neomycin/ Polymyxin/ Dexamethasone (Maxitrol Oph Oint) 1 applic QPM BOTH EYES Last administered on 07/26/17 06:03; Admin Dose 1 APPLIC; Start 07/26/17 at 21:00 Polyethylene Glycol (Miralax) 17 gm DAILY PRN PO CONSTIPATION; Start 07/26/17 at 01:00 Eye Lubricant (Artificial Tears Oph) 1 drop PRN BOTH EYES ; Start 07/26/17 at 01:00 Valproate Sodium (Depakene Liquid Cup) 250 mg TID GTB Last administered on 08:24; Admin Dose 250 MG; Start 07/26/17 at 09:00 Lansoprazole (Prevacid) 30 mg BID@06,18 GTB Last administered on 07/26/17 05: 46; Admin Dose 30 MG; Start 07/26/17 at 06:00 Fluticasone Propionate 1 spray 1 spray DAILY NASAL Last administered on 08:25; Admin Dose 1 SPRAY; Start 07/26/17 at 09:00 Levofloxacin/ Dextrose 100 ml @ 100 mls/hr DAILY IVPB Last administered on 08:25; Admin Dose 100 MLS/HR; Start 07/26/17 at 09:00 Cefepime HCl 50 ml @ 100 mls/hr Q12 IVPB Last administered on 07/26/17 08:25 ; Admin Dose 100 MLS/HR; Start 07/26/17 at 09:00 Vancomycin HCl/ Dextrose/Water (Vancocin/D5W) 150 ml @ 75 mls/hr Q8H IVPB ; Start 07/26/17 at 14:30 Miscellaneous Information (*Rx Drug Level Order Reminder*) VANCO TROUGH @ 0, 530 ON ... ONCE ONCE XX ; Start 07/27/17 at 05:30; Stop 07/27/17 at 05:31 DUONG CHING MD Jul 26, 2017 13:14
--- NOTE | 2017-07-26 13:31 | CONS ---
Date/Time of Note Date/Time of Note DATE: 07/26/17 TIME: 13:28 Assessment/Plan Assessment/Plan Chief Complaint/Hosp Course SUBJECTIVE: Patient is lying comfortably in bed. He is nonverbal, noncommunicative. No fevers. INDWELLINGS: The patient has trach, PEG, Cortes, PICC. ANTIMICROBIALS: Vanco Levaquin Cefepime DIAGNOSTICS: Chest x-ray on admission revealed no focal consolidation. PHYSICAL EXAMINATION: GENERAL: Chronically ill-appearing, debilitated young man who is in no distress. HEENT: Head is large in proportion to the body. NECK: Supple. CHEST: Rise is symmetrical. Breath sounds diminished at bases. HEART: S1, S2. ABDOMEN: Soft, bowel sounds present. EXTREMITIES: Wasted, contractures, without cyanosis. ASSESSMENT: 1. Acute on chronic resp failure 2. HCAP, poss aspiration. 3. S/p UTI 4. Persistent vegetative state. PLAN: Clinically stable. Continue present care/abx, pulmonary toilet, f/u pulmonary rec-s. DW staff Problems: Consultation Date/Type/Reason Admit Date/Time Jul 25, 2017 at 23:40 Initial Consult Date 07/26/17 Type of Consultation: ID Referring Provider: LIBRA GARCIA MD Exam/Review of Systems Vital Signs Vitals Vital Signs Date Time Temp Pulse Resp B/P Pulse Ox O2 Delivery O2 Flow Rate FiO2 07/26/17 12:00 68 07/26/17 11:18 99.4 16 110/59 99 07/26/17 11:05 30 07/26/17 00:00 Mechanical Ventilator Results Result Diagram: 07/26/17 0327 07/26/17 0327 Results 24 hrs Laboratory Tests Test 07/25/17 18:40 07/26/17 00:05 07/26/17 00:54 07/26/17 03:27 White Blood Count 6.2 6.8 Red Blood Count 5.01 4.74 Hemoglobin 13.6 L 12.8 L Hematocrit 42.9 40.1 L Mean Corpuscular Volume 85.6 84.6 Mean Corpuscular Hemoglobin 27.1 L 27.0 L Mean Corpuscular Hemoglobin Concent 31.7 L 31.9 L Red Cell Distribution Width 14.7 H 14.6 H Platelet Count 234 206 Mean Platelet Volume 12.8 H 11.8 H Neutrophils % 54.0 55.5 Lymphocytes % 27.9 27.9 Monocytes % 13.9 H 12.2 Eosinophils % 3.5 3.7 Basophils % 0.5 0.4 Nucleated Red Blood Cells % 0.0 0.0 Neutrophils # 3.4 3.8 Lymphocytes # 1.7 1.9 Monocytes # 0.9 0.8 Eosinophils # 0.2 0.3 Basophils # 0.0 0.0 Nucleated Red Blood Cells # 0.0 0.0 Sodium Level 144 146 H Potassium Level 4.6 4.0 Chloride Level 108 108 Carbon Dioxide Level 24 24 Anion Gap 17 H 18 H Blood Urea Nitrogen 14 12 Creatinine 0.59 L 0.52 L Glucose Level 80 86 Calcium Level 9.4 8.7 B-Type Natriuretic Peptide 164 H Lactic Acid Level 1.1 3.2 *H 1.5 Total Bilirubin 0.6 Direct Bilirubin 0.00 Indirect Bilirubin 0.6 Aspartate Amino Transf (AST/SGOT) 27 Alanine Aminotransferase (ALT/SGPT) 32 Alkaline Phosphatase 78 Total Protein 7.6 Albumin 3.7 Globulin 3.90 H Albumin/Globulin Ratio 0.94 Test 07/26/17 05:25 Blood Gas Specimen Source Blood arterial Arterial Blood Date Drawn 07/26/2017 6:00:14 AM Arterial Blood pH (Temp corrected) 7.435 Arterial Blood pCO2 (Temp correct) 35.1 Arterial Blood pO2 (Temp corrected) 95.9 Arterial Blood HCO3 23.0 Arterial Blood Base Excess -0.6 Arterial Blood Oxygen Saturation 97.4 Thuan Test ACCEPTAB Arterial Blood Gas Puncture Site Left Radial Arterial Blood Carboxyhemoglobin 0.2 Arterial Blood Methemoglobin 0.4 Blood Gas A-a O2 Differential 76.8 H Oxyhemoglobin Percent 96.8 Total Hemoglobin 13.9 Blood Gas Temperature 37.0 Blood Gas Respiration Rate 14.0 Blood Gas Actual Respiration Rate 16 Blood Gas Modality VENT - PC FiO2 30.0 Blood Gas High PEEP Setting 30.0 Blood Gas Low PEEP Setting 5.0 Blood Gas Notified Whom MA Blood Gas Notified Time 07/26/2017 6:20:08 AM Medications Medications Current Medications Ondansetron HCl (Zofran Inj) 4 mg Q6H PRN IV NAUSEA AND/OR VOMITING; Start 07/02 at 01:00 Acetaminophen (Tylenol Tab) 650 mg Q6H PRN GTB PAIN LEVEL 1-3 OR FEVER; Start 07/26/17 at 01:00 Heparin Sodium (Porcine) (Heparin (5000 Units/0.5 ml)) 5,000 unit Q12 SC Last administered on 07/26/17 08:29; Admin Dose 5,000 UNIT; Start 07/26/17 at 09: 00 Baclofen (Lioresal) 25 mg Q6 GTB Last administered on 07/26/17 12:18; Admin Dose 25 MG; Start 07/26/17 at 06:00 Clonidine HCl (Catapres-Tts 1 Patch) 1 patch Q7D TRANSDERM Last administered on 07/26/17 05:58; Admin Dose 1 PATCH; Start 07/26/17 at 01:00 Diazepam (Valium) 3 mg Q6 GTB Last administered on 07/26/17 13:22; Admin Dose 3 MG; Start 07/26/17 at 06:00 Glycopyrrolate (Robinul) 0.25 mg BID GTB Last administered on 07/26/17 08:25 ; Admin Dose 0.25 MG; Start 07/26/17 at 09:00 Levetiracetam (Keppra Liquid) 1,750 mg BID GTB Last administered on 07/26/17 08:24; Admin Dose 1,750 MG; Start 07/26/17 at 09:00 Neomycin/ Polymyxin/ Dexamethasone (Maxitrol Oph Oint) 1 applic QPM BOTH EYES Last administered on 07/26/17 06:03; Admin Dose 1 APPLIC; Start 07/26/17 at 21:00 Polyethylene Glycol (Miralax) 17 gm DAILY PRN PO CONSTIPATION; Start 07/26/17 at 01:00 Eye Lubricant (Artificial Tears Oph) 1 drop PRN BOTH EYES ; Start 07/26/17 at 01:00 Valproate Sodium (Depakene Liquid Cup) 250 mg TID GTB Last administered on 13:24; Admin Dose 250 MG; Start 07/26/17 at 09:00 Lansoprazole (Prevacid) 30 mg BID@18 GTB Last administered on 07/26/17 05: 46; Admin Dose 30 MG; Start 07/26/17 at 06:00 Fluticasone Propionate 1 spray 1 spray DAILY NASAL Last administered on 08:25; Admin Dose 1 SPRAY; Start 07/26/17 at 09:00 Levofloxacin/ Dextrose 100 ml @ 100 mls/hr DAILY IVPB Last administered on 08:25; Admin Dose 100 MLS/HR; Start 07/26/17 at 09:00 Cefepime HCl 50 ml @ 100 mls/hr Q12 IVPB Last administered on 07/26/17 08:25 ; Admin Dose 100 MLS/HR; Start 07/26/17 at 09:00 Vancomycin HCl/ Dextrose/Water (Vancocin/D5W) 150 ml @ 75 mls/hr Q8H IVPB ; Start 07/26/17 at 14:30 Miscellaneous Information (*Rx Drug Level Order Reminder*) VANCO TROUGH @ 0, 530 ON ... ONCE ONCE XX ; Start 07/27/17 at 05:30; Stop 07/27/17 at 05:31 JEIMY LYNCH NP Jul 26, 2017 13:31
[2017-07-26] MEDS: VANCOMYCIN 750 MG in DEXTROSE 5% 150 ML IVPB SCH ×2 (13:37→22:00)
--- NOTE | 2017-07-26 13:48 | PN ---
Date/Time of Note Date/Time of Note DATE: 07/26/17 TIME: 13:44 Assessment/Plan VTE Prophylaxis VTE Prophylaxis Intervention: SCD's Lines/Catheters IV Catheter Type (from [facility]): Mid Line Urinary Cath still in place: No Assessment/Plan Chief Complaint/Hosp Course Assessment/Plan #. Acute hypercapnic respiratory failure on Vent - likely 2/2 lack of care at SNF and inadequate suctioning -continue on vent - continue aggressive suctioning. Patient produces a large amount of sputum normally as discussed with treating physician at [facility] #PNA -per CT -ID consulted -broad spectrum abx #. UTI - Urine culture grew Providencia and pseudomonas on previous admission - ID consultation appreciated #. Failure to thrive - PEG in place and TF running #. Chronic vegetative state #epilepsy -cont depakote #agitation -PRN medications 7. Disposition - very high bounce back risk, 2nd bounce back from SNF this week. Stable, Transfer back when okay with ID Problems: Subjective 24 Hr Interval Summary Free Text/Dictation no acute change from previous admission Exam/Review of Systems Vital Signs Vitals Vital Signs Date Time Temp Pulse Resp B/P Pulse Ox O2 Delivery O2 Flow Rate FiO2 07/26/17 12:00 68 07/26/17 11:18 99.4 16 110/59 99 07/26/17 11:05 30 07/26/17 00:00 Mechanical Ventilator Exam Constitutional: non-verbal, Trach connected to vent. In a chronic vegetative state. Head: atraumatic, normocephalic Neck: trach in place, no blood appreciated at site of insertion Respiratory: coarse breath sounds, diminished at bases, no wheezing Cardiovascular: nl pulses, regular rate and rhythm Gastrointestinal: soft, nondistended, BS present Musculoskeletal: Deformity with contracture of extremities Results Result Diagram: 07/26/17 0327 07/26/17 0327 Results 24 hrs Laboratory Tests Test 07/25/17 18:40 07/26/17 00:05 07/26/17 00:54 07/26/17 03:27 White Blood Count 6.2 6.8 Red Blood Count 5.01 4.74 Hemoglobin 13.6 L 12.8 L Hematocrit 42.9 40.1 L Mean Corpuscular Volume 85.6 84.6 Mean Corpuscular Hemoglobin 27.1 L 27.0 L Mean Corpuscular Hemoglobin Concent 31.7 L 31.9 L Red Cell Distribution Width 14.7 H 14.6 H Platelet Count 234 206 Mean Platelet Volume 12.8 H 11.8 H Neutrophils % 54.0 55.5 Lymphocytes % 27.9 27.9 Monocytes % 13.9 H 12.2 Eosinophils % 3.5 3.7 Basophils % 0.5 0.4 Nucleated Red Blood Cells % 0.0 0.0 Neutrophils # 3.4 3.8 Lymphocytes # 1.7 1.9 Monocytes # 0.9 0.8 Eosinophils # 0.2 0.3 Basophils # 0.0 0.0 Nucleated Red Blood Cells # 0.0 0.0 Sodium Level 144 146 H Potassium Level 4.6 4.0 Chloride Level 108 108 Carbon Dioxide Level 24 24 Anion Gap 17 H 18 H Blood Urea Nitrogen 14 12 Creatinine 0.59 L 0.52 L Glucose Level 80 86 Calcium Level 9.4 8.7 B-Type Natriuretic Peptide 164 H Lactic Acid Level 1.1 3.2 *H 1.5 Total Bilirubin 0.6 Direct Bilirubin 0.00 Indirect Bilirubin 0.6 Aspartate Amino Transf (AST/SGOT) 27 Alanine Aminotransferase (ALT/SGPT) 32 Alkaline Phosphatase 78 Total Protein 7.6 Albumin 3.7 Globulin 3.90 H Albumin/Globulin Ratio 0.94 Test 07/26/17 05:25 Blood Gas Specimen Source Blood arterial Arterial Blood Date Drawn 07/26/2017 6:00:14 AM Arterial Blood pH (Temp corrected) 7.435 Arterial Blood pCO2 (Temp correct) 35.1 Arterial Blood pO2 (Temp corrected) 95.9 Arterial Blood HCO3 23.0 Arterial Blood Base Excess -0.6 Arterial Blood Oxygen Saturation 97.4 Thuan Test ACCEPTAB Arterial Blood Gas Puncture Site Left Radial Arterial Blood Carboxyhemoglobin 0.2 Arterial Blood Methemoglobin 0.4 Blood Gas A-a O2 Differential 76.8 H Oxyhemoglobin Percent 96.8 Total Hemoglobin 13.9 Blood Gas Temperature 37.0 Blood Gas Respiration Rate 14.0 Blood Gas Actual Respiration Rate 16 Blood Gas Modality VENT - PC FiO2 30.0 Blood Gas High PEEP Setting 30.0 Blood Gas Low PEEP Setting 5.0 Blood Gas Notified Whom MA Blood Gas Notified Time 07/26/2017 6:20:08 AM Medications Medications Current Medications Ondansetron HCl (Zofran Inj) 4 mg Q6H PRN IV NAUSEA AND/OR VOMITING; Start 11/ 10/17 at 01:00 Acetaminophen (Tylenol Tab) 650 mg Q6H PRN GTB PAIN LEVEL 1-3 OR FEVER; Start 07/26/17 at 01:00 Heparin Sodium (Porcine) (Heparin (5000 Units/0.5 ml)) 5,000 unit Q12 SC Last administered on 07/26/17 08:29; Admin Dose 5,000 UNIT; Start 07/26/17 at 09: 00 Baclofen (Lioresal) 25 mg Q6 GTB Last administered on 07/26/17 12:18; Admin Dose 25 MG; Start 07/26/17 at 06:00 Clonidine HCl (Catapres-Tts 1 Patch) 1 patch Q7D TRANSDERM Last administered on 07/26/17 05:58; Admin Dose 1 PATCH; Start 07/26/17 at 01:00 Diazepam (Valium) 3 mg Q6 GTB Last administered on 07/26/17 13:22; Admin Dose 3 MG; Start 07/26/17 at 06:00 Glycopyrrolate (Robinul) 0.25 mg BID GTB Last administered on 07/26/17 08:25 ; Admin Dose 0.25 MG; Start 07/26/17 at 09:00 Levetiracetam (Keppra Liquid) 1,750 mg BID GTB Last administered on 07/26/17 08:24; Admin Dose 1,750 MG; Start 07/26/17 at 09:00 Neomycin/ Polymyxin/ Dexamethasone (Maxitrol Oph Oint) 1 applic QPM BOTH EYES Last administered on 07/26/17 06:03; Admin Dose 1 APPLIC; Start 07/26/17 at 21:00 Polyethylene Glycol (Miralax) 17 gm DAILY PRN PO CONSTIPATION; Start 07/26/17 at 01:00 Eye Lubricant (Artificial Tears Oph) 1 drop PRN BOTH EYES ; Start 07/26/17 at 01:00 Valproate Sodium (Depakene Liquid Cup) 250 mg TID GTB Last administered on 13:24; Admin Dose 250 MG; Start 07/26/17 at 09:00 Lansoprazole (Prevacid) 30 mg BID@18 GTB Last administered on 07/26/17 05: 46; Admin Dose 30 MG; Start 07/26/17 at 06:00 Fluticasone Propionate 1 spray 1 spray DAILY NASAL Last administered on 08:25; Admin Dose 1 SPRAY; Start 07/26/17 at 09:00 Levofloxacin/ Dextrose 100 ml @ 100 mls/hr DAILY IVPB Last administered on 08:25; Admin Dose 100 MLS/HR; Start 07/26/17 at 09:00 Cefepime HCl 50 ml @ 100 mls/hr Q12 IVPB Last administered on 07/26/17 08:25 ; Admin Dose 100 MLS/HR; Start 07/26/17 at 09:00 Vancomycin HCl/ Dextrose/Water (Vancocin/D5W) 150 ml @ 75 mls/hr Q8H IVPB Last administered on 07/26/17 13:37; Admin Dose 75 MLS/HR; Start 07/26/17 at 14:30 Miscellaneous Information (*Rx Drug Level Order Reminder*) VANCO TROUGH @ 0, 530 ON ... ONCE ONCE XX ; Start 07/27/17 at 05:30; Stop 07/27/17 at 05:31 EMELY PARK Jul 26, 2017 13:48
[2017-07-26] MEDS ORDERED: VANCOMYCIN 1 GM in NS 250 ML IVPB SCH (14:30)
--- NOTE | 2017-07-26 17:31 | CONS ---
DATE OF ADMISSION: 07/25/2017 DATE OF CONSULTATION: TYPE OF CONSULTATION: Pulmonary. REASON FOR CONSULTATION: Ventilator management. Thank you, Dr. Hollins, for this consultation. HISTORY OF PRESENT ILLNESS: A 21-year-old gentleman with multiple medical problems, chronic encepha lopathy, vent-dependent respiratory failure, discharged only 1 day ago, presented from [facility] for increased secretions and transient hypoxemia. Upon arrival to the hospital, the pat ient had no hypoxemia and remains stable. CT angiogram was performed and demonstrated patchy infilt rates but no pulmonary embolism. The patient continued his prior vent settings. PAST MEDICAL HISTORY: 1. Chronic encephalopathy. 2. Vent-dependent respiratory failure. 3. Dysphagia with G-tube. MEDICATIONS: Per chart. ALLERGIES: FAMOTIDINE. SOCIAL HISTORY: He is a nonsmoker, no alcohol, no history of drug use. FAMILY HISTORY: Noncontributory. REVIEW OF SYSTEMS: A 12-point review of systems was negative other than that mentioned above. PHYSICAL EXAMINATION: GENERAL: Chronically ill-appearing gentleman, comfortable at rest. VITAL SIGNS: Currently afebrile, pulse is 68, blood pressure 110/59, O2 sat 96% on FiO2 of 30%. NECK: Trach site clean and intact. CARDIAC: S1, S2, no added sounds or murmurs. CHEST: Diminished air entry bilaterally. ABDOMEN: Soft, nontender. No guarding, no rebound. EXTREMITIES: No cyanosis, clubbing or edema. NEUROLOGIC: Unable to assess. LABORATORIES: White count 6.8, hemoglobin 12.8, platelets of 206. Chemistry within normal limits. Lactic acid 1.5. Arterial blood gas: PH 7.43, pCO2 of 35, pO2 of 95. Chest CT as above. IMPRESSION: 1. Transient hypoxemia, likely secondary to mucous plugging. 2. Chronic encephalopathy. 3. Chronic vent-dependent respiratory failure. PLAN: 1. Continue vent support. The patient will continue on current pressure control vent settings. 2. Family requesting transfer to [facility] where he has an established relationship with ENT, where they have made him a custom tracheostomy in the past. Currently, the patient has a Shile y [address] with adequate tidal volumes, no cuff leak. I will try to discuss with [facility] for lateral transfer so he can be followed by his ENT physician. Dictated By: ARACELY AYALA MD SV/WERNER RIBERA: 07/26/2017 14:18:56 Conf#: [id number] [facility]#: [id number] CC: MARYLIN HOLLINS; LIBRA GARCIA MD;*EndCC*
--- NOTE | 2017-07-26 18:19 | DS ---
Date/Time of Note Date/Time of Note DATE: 07/26/17 TIME: 18:15 Discharge Summary Admission/Discharge Info Admit Date/Time Jul 25, 2017 at 23:40 Discharge Date/Time Patient Condition: Stable Hx of Present Illness This is a 21-year-old male with history of chronic encephalopathy, chronic trach /vent dependent respiratory failure who was sent from a shelter facility for hypoxia. Reportedly, when EMS arrived O2 sat was in 80s. His tracheostomy was suctioned in the ER and after that oxygen saturation was 100%. He is known to have significant amount of secretions quite for a long time. He was then discharged back to SNF, but was sent right back, again for hypoxia with oxygen saturation in the low 80s. His initial chest x-ray showed Patchy bilateral perihilar and lower lobe infiltrates. On the second ER visit, CT pulmonary angiogram was done which showed Diffuse interstitial infiltrates with more focal consolidation within the superior segment of the right lower lobe with extensive diffuse nodular densities scattered throughout the lungs, possibly from aspiration pneumonia. He has been afebrile with normal white count. Also note, the patient was just admitted here and in fact he was discharged 2 days ago after he was initially admitted for tracheostomy malfunction. His trach tube was replaced in the ER and after that he did have bleeding through his trach which had resolved during hospitalization. He was also treated for UTI. . His chest x-ray is unchanged compared with prior. He is afebrile. His blood gas shows mild hypercapnia, but is otherwise unremarkable. Vent was adjusted accordingly. The patient . He likely requires increased suctioning at the residential. The mother expressed concern about the size of the patient's trach. I spoke with the locate technician, Dr. Garcia, who saw the patient while he was hospitalized. Dr. Garcia states that the patient is stable to follow- up at [facility] with ENT for resizing of trach as an outpatient, and that there was no problem related to the size of the trach such as air leak. Patient's trach was replaced per pulmonology and was placed on pressure control ventilation per recommendations from shelter facility to accept. Patient also had UTI that grew Providencia stuartii and pseudomonas aeruginosa and subsequently placed patient on infectious disease amikacin for a total of 7 days. Patient's first dose of amikacin was July 21 and will need 7 days from that date. Patient's respiratory status improved and patient's hypotension also resolved. Patient was placed back on home medications and is stable to transfer back to shelter facility. Patient has considerable secretions, however upon speaking with shelter facility MD and mother at bedside it is quite normal for patient as well as his increased drainage on his GI site PEG. Information is obtained from the mother who was at the bedside and from the ER physician and chart review. When he presented to the ER, his trach tube was replaced with normalization of oxygen saturation. He has however been bleeding through his trach since his tracheostomy tube was replaced. He had about a 200 cc of blood that was suctioned over a period of 7 hours. According to his mother, he fell down when he was 4 years old and since then has been in a chronic vegetative state and has been trach/vent dependent. Chest x-ray showed left lower lung atelectasis versus airspace disease. Hospital Course (as of discharge to SNF on 07/24/17) Patient is a 21-year-old -[place] male with a past medical history of chronic vegetative state since the age of 4 secondary to traumatic fall who also has a past medical history of epilepsy and mood disorder and acute hypercapnic respiratory failure on chronic failure on the vent who originally presented for trach malfunction and acute hypercapnic respiratory failure. Patient was evaluated by pulmonology and an infectious disease as well. Patient 's trach was replaced per pulmonology and was placed on pressure control ventilation per recommendations from shelter facility to accept. Patient also had UTI that grew Providencia stuartii and pseudomonas aeruginosa and subsequently placed patient on infectious disease amikacin for a total of 7 days. Patient's first dose of amikacin was July 21 and will need 7 days from that date. Patient's respiratory status improved and patient's hypotension also resolved. Patient was placed back on home medications and is stable to transfer back to shelter facility. Patient has considerable secretions, however upon speaking with shelter facility MD and mother at bedside it is quite normal for patient as well as his increased drainage on his GI site PEG. (readmission 07/26/17) Patient was sent back from SNF due to hypoxia, cleared up in [facility] ED with suctioning. Patient is baseline. CT shows ? PNA and followup should be done at [facility]. Patient currently on cefepime/ vancomycin. ENT at [facility] is more familiar with this patient and may be able to materialize a customized trach for this patient. Transfer pending. Discharge diagnosis acute hypercapnic respiratory failure on chronic respiratory failure vent dependent, stable UTI, Providencia and Pseudomonas, treated with amikacin PNA? CT evidence Failure to thrive, chronic Chronic encephalopathy, secondary to trauma as a young child Epilepsy Mood disorder Home Meds Reported Medications Levetiracetam* (Keppra*) 500 Mg/5 Ml Solution, 1750 MG GTB BID, BOTTLE 07/25/17 Neomycin/Polymyxin/Dexameth* (Maxitrol*) 3.5 Gm Oint, 1 APPLIC BOTH EYES QPM, EA 07/25/17 Ergocalciferol (Vitamin D2) (VITAMIN D2) 2,000 Unit Tablet, 2000 UNIT GTB DAILY , TAB 07/15/17 Clonidine Patch (CATAPRES PATCH) 0.1 Mg/24 Hr Patch, 1 PATCH TD Q7D, #4 PATCH.WK 07/15/17 Baclofen* (Baclofen*) 10 Mg Tablet, 25 MG GTB Q6, TAB 07/15/17 Erythromycin (Erythromycin) 500 Mg Tabec, 120 MG GTB Q6, TAB 07/15/17 Mineral Oil/Lanolin Oil (Lacri-Lube) 3.5 Gm Oint, 1 APPLIC BOTH EYES Q4H WHILE AWAKE, #1 EA 07/15/17 Mometasone Furoate* (Nasonex*) 50 Mcg/[place] - 17 Gm [place].pump, 1 SPRAY NASAL DAILY, #1 BOTTLE TO EACH NOSTRIL 07/15/17 Diazepam* (Diazepam*) 2 Mg Tablet, 3 MG GTB Q6, TAB 07/15/17 Polyethylene Glycol* (Miralax*) 17 Gm Powd.pack, 17 GM PO DAILY Y for CONSTIPATION, #30 PACKET 07/15/17 Polyvinyl Alcohol (Tears Again) 15 Ml Drops, 1 DRP BOTH EYES PRN, BOTTLE 07/15/17 Amino Acids/Protein Hydrolys (PRO-STAT LIQUID) 30 Ml Liquid.pkt, 30 ML GTB DAILY 07/15/17 Glycopyrrolate* (Robinul*) 1 Mg Tab, 250 MCG GTB BID, TAB 07/15/17 Valproic Acid* (Valproic Acid* Liq) 250 Mg/5 Ml Syrup, 250 MG GTB TID, ML 07/15/17 Folic Acid/Mv,Fe,Min (Centrum Chewable Tablet) 1 Each Tab.chew, 1 EACH GTB DAILY , TAB.CHEW 07/15/17 Esomeprazole Mag Trihydrate (Nexium) 20 Mg Capsule.dr, 20 MG GTB BID, #30 CAP 07/15/17 Discontinued Reported Medications Montelukast Sodium* (Singulair*) 10 Mg Tablet, 10 MG GTB QHS, #30 TAB 07/15/17 Sodium Chloride* (Nacl*) 1 Gm Tab, 60 MEQ PO QID, TAB 07/15/17 Levetiracetam* (Keppra* (Ped)) 100 Mg/Ml Liq, 1750 MG GTB BID for 30 Days, BOTTLE 07/15/17 Kobe/Polymyx B Sulf/Dexameth (Maxitrol Eye Ointment) 3.5 Gm Oint..gm., 1 INCH BOTH EYES QPM 07/15/17 Discontinued Scripts [Amikacin Iv Per Pharmacy] 1 EA EACH No Conflict Check, 0 EA XX NOTE for 5 Days Prov:EMELY PARK 07/23/17 Primary Care Provider Not On Staff Doctor Pending Labs Laboratory Tests Test 07/25/17 18:40 07/26/17 00:05 07/26/17 00:54 07/26/17 03:27 White Blood Count 6.210^3/ul (4.8-10.8) 6.810^3/ul (4.8-10.8) Red Blood Count 5.0110^6/ul (4.70-6.10) 4.7410^6/ul (4.70-6.10) Hemoglobin 13.6g/dl (14.0-18.0) 12.8g/dl (14.0-18.0) Hematocrit 42.9% (42.0-52.0) 40.1% (42.0-52.0) Mean Corpuscular Volume 85.6fl (72.0-104.0) 84.6fl (72.0-104.0) Mean Corpuscular Hemoglobin 27.1pg (29.0-33.0) 27.0pg (29.0-33.0) Mean Corpuscular Hemoglobin Concent 31.7g/dl (32.0-37.0) 31.9g/dl (32.0-37.0) Red Cell Distribution Width 14.7% (11.5-14.5) 14.6% (11.5-14.5) Platelet Count 37949^3/UL (140-415) 48910^3/UL (140-415) Mean Platelet Volume 12.8fl (7.4-10.4) 11.8fl (7.4-10.4) Neutrophils % 54.0% (30.0-74.0) 55.5% (30.0-74.0) Lymphocytes % 27.9% (18.0-55.0) 27.9% (18.0-55.0) Monocytes % 13.9% (0.0-13.0) 12.2% (0.0-13.0) Eosinophils % 3.5% (0.0-7.0) 3.7% (0.0-7.0) Basophils % 0.5% (0.0-2.0) 0.4% (0.0-2.0) Nucleated Red Blood Cells % 0.0/100WBC (0.0-0.0) 0.0/100WBC (0.0-0.0) Neutrophils # 3.410^3/ul (1.6-7.5) 3.810^3/ul (1.6-7.5) Lymphocytes # 1.710^3/ul (0.8-2.9) 1.910^3/ul (0.8-2.9) Monocytes # 0.910^3/ul (0.3-0.9) 0.810^3/ul (0.3-0.9) Eosinophils # 0.210^3/ul (0.0-0.5) 0.310^3/ul (0.0-0.5) Basophils # 0.010^3/ul (0.0-0.1) 0.010^3/ul (0.0-0.1) Nucleated Red Blood Cells # 0.010^3/ul (0.0-0.0) 0.010^3/ul (0.0-0.0) Sodium Level 144mmol/L (135-144) 146mmol/L (135-144) Potassium Level 4.6mmol/L (3.5-5.1) 4.0mmol/L (3.5-5.1) Chloride Level 108mmol/L (97-110) 108mmol/L (97-110) Carbon Dioxide Level 24mmol/L (21-31) 24mmol/L (21-31) Anion Gap 17 (8-16) 18 (8-16) Blood Urea Nitrogen 14mg/dl (7-20) 12mg/dl (7-20) Creatinine 0.59mg/dl (0.61-1.24) 0.52mg/dl (0.61-1.24) Glucose Level 80mg/dl (70-220) 86mg/dl (70-220) Calcium Level 9.4mg/dl (8.4-10.2) 8.7mg/dl (8.4-10.2) B-Type Natriuretic Peptide 164PG/ML (0-125) Lactic Acid Level 1.1mmol/L (0.5-2.0) 3.2mmol/L (0.5-2.0) 1.5mmol/L (0.5-2.0) Total Bilirubin 0.6mg/dl (0.2-1.3) Direct Bilirubin 0.00mg/dl (0.00-0.20) Indirect Bilirubin 0.6mg/dl (0-1.1) Aspartate Amino Transf (AST/SGOT) 27IU/L (15-46) Alanine Aminotransferase (ALT/SGPT) 32IU/L (13-69) Alkaline Phosphatase 78IU/L (42-121) Total Protein 7.6g/dl (6.1-8.1) Albumin 3.7g/dl (3.3-4.9) Globulin 3.90g/dl (1.3-3.2) Albumin/Globulin Ratio 0.94 Test 07/26/17 05:25 Blood Gas Specimen Source Blood arterial Arterial Blood Date Drawn 07/26/2017 6:00:14 AM Arterial Blood pH (Temp corrected) 7.435 (7.350-7.450) Arterial Blood pCO2 (Temp correct) 35.1mmhg (35-45) Arterial Blood pO2 (Temp corrected) 95.9mmHG (80-100.0) Arterial Blood HCO3 23.0mmol/L (22.0-26.0) Arterial Blood Base Excess -0.6mmol/L (-3.0-3) Arterial Blood Oxygen Saturation 97.4mmHG (95.0-98.0) Thuan Test ACCEPTAB Arterial Blood Gas Puncture Site Left Radial Arterial Blood Carboxyhemoglobin 0.2% (0.0-3.0) Arterial Blood Methemoglobin 0.4% (0.0-1.5) Blood Gas A-a O2 Differential 76.8mmHg (7.0-24.0) Oxyhemoglobin Percent 96.8% (93.0-99.0) Total Hemoglobin 13.9g/dl (12.0-18.0) Blood Gas Temperature 37.0C Blood Gas Respiration Rate 14.0 Blood Gas Actual Respiration Rate 16 Blood Gas Modality VENT - PC FiO2 30.0% Blood Gas High PEEP Setting 30.0cmH2O Blood Gas Low PEEP Setting 5.0cmH2O Blood Gas Notified Whom MA Blood Gas Notified Time 07/26/2017 6:20:08 EMELY PARSONS Jul 26, 2017 18:19
[2017-07-27] VITALS (18 sets, daily range): BP systolic 112–126; BP diastolic 58–76; PULSE 50–57; RESP 14–19
[2017-07-27] MEDS: OCULAR LUBRICANT 3.5 GM OPH OINT BOTH EYES SCH ×5 (01:23→17:24)
[2017-07-27] MEDS: DIAZEPAM 2 MG TAB GTB SCH ×3 (01:23→12:17)
[2017-07-27] MEDS: BACLOFEN 10 MG TAB GTB SCH ×3 (01:23→12:18)
[2017-07-27] MEDS: LANSOPRAZOLE 30 MG CAP GTB SCH (05:17)
[2017-07-27 06:47] LABS: BASOPHILS % 0.7 % (0.0-2.0); EOSINOPHILS # 0.7 10^3/ul (0.0-0.5); EOSINOPHILS % 12.2 % (0.0-7.0); HEMATOCRIT 38.8 % (42.0-52.0); HEMOGLOBIN 12.2 g/dl (14.0-18.0); LYMPHOCYTES # 2.1 10^3/ul (0.8-2.9); LYMPHOCYTES % 35.8 % (18.0-55.0); MEAN CORPUSCULAR HEMOGLOBIN 26.6 pg (29.0-33.0); MEAN CORPUSCULAR HGB CONC 31.4 g/dl (32.0-37.0); MEAN CORPUSCULAR VOLUME 84.7 fl (72.0-104.0); MEAN PLATELET VOLUME 12.4 fl (7.4-10.4); MONOCYTE # 0.8 10^3/ul (0.3-0.9); MONOCYTES % 12.8 % (0.0-13.0); NEUTROPHIL # 2.3 10^3/ul (1.6-7.5); NEUTROPHILS % 38.3 % (30.0-74.0); PLATELET COUNT 207 10^3/UL (140-415); RED BLOOD COUNT 4.58 10^6/ul (4.70-6.10); RED CELL DISTRIBUTION WIDTH 14.9 % (11.5-14.5); WHITE BLOOD COUNT 5.9 10^3/ul (4.8-10.8)
[2017-07-27 07:26] LABS: CALCIUM 8.9 mg/dl (8.4-10.2); CREATININE 0.49 mg/dl (0.61-1.24); MAGNESIUM 1.9 mg/dl (1.7-2.5); PHOSPHORUS 4.9 mg/dl (2.5-4.9); POTASSIUM 3.9 mmol/L (3.5-5.1)
[2017-07-27] MEDS: VANCOMYCIN 750 MG in DEXTROSE 5% 150 ML IVPB SCH ×2 (08:05→14:30)
[2017-07-27] MEDS: LEVETIRACETAM (100 MG/ML) 5ML CUP GTB SCH (08:11)
[2017-07-27] MEDS: VALPROIC ACID LIQUID CUP 250 MG/5 ML CUP GTB SCH ×2 (08:11→12:17)
[2017-07-27] MEDS: GLYCOPYRROLATE 1 MG TAB GTB SCH (08:12)
[2017-07-27] MEDS: HEPARIN 5,000 UNIT/0.5 ML VIAL SC SCH (08:13)
[2017-07-27] MEDS: FLUTICASONE 0.05% 16 GM NAS SPRAY NASAL SCH (08:16)
[2017-07-27] MEDS: LEVOFLOXACIN 500MG/D5W (PMX) 100 ML IVPB SCH (10:20)
[2017-07-27] MEDS: CEFEPIME 1GM/50 ML (PMX) 50 ML IVPB SCH (10:20)
--- NOTE | 2017-07-27 10:37 | PN ---
Date/Time of Note Date/Time of Note DATE: 07/27/17 TIME: 10:32 Assessment/Plan VTE Prophylaxis VTE Prophylaxis Intervention: SCD's Lines/Catheters IV [facility]ter [facility] (from [facility] Mid Line Urinary Cath still in place: No Assessment/Plan Assessment/Plan 1. Acute hypercapnic respiratory failure on Vent - likely secondary to inadequate suction at [facility] - Pulmonology on board and recommendations appreciated. Spoke with ENT and pulm fellows at [facility] who recommend patient follow up with ENT and Pulm next week as outpatient for replacement of custom trach. If patient desaturates or becomes unstable, advised mother to discuss with [facility] that he should be taken to [facility] rather than [facility] -continue on vent - continue aggressive suctioning. Patient produces a large amount of sputum normally as discussed with treating physician at [facility] 2. Aspiration pneumonia -seen on CT chest -ID consulted and appreciate recommendations. Continue current antibiotics 3. UTI - Urine culture grew Providencia and pseudomonas on previous admission - ID consultation appreciated and continue current treatment 4. Failure to thrive - PEG in place and TF running 5. Chronic vegetative state 6. epilepsy -cont depakote 7. agitation -PRN medications 8. Disposition - stable for discharge back to [facility] with recommendations to follow up as outpatient with ENT and Pulm. Advised mother to discuss with facility that he needs to be taken to [facility] in the event that he desaturates rather than [facility]. Subjective 24 Hr Interval Summary Free Text/Dictation patient in no acute distress. No acute overnight events. Still on vent support with secretions being suctioned. Exam/Review of Systems Vital Signs Vitals Vital Signs Date Time Temp Pulse Resp B/P Pulse Ox O2 Delivery O2 Flow Rate FiO2 07/27/17 08:41 51 07/27/17 07:41 97.8 19 118/76 96 07/27/17 05:30 30 07/26/17 00:00 Mechanical Ventilator Intake and Output 07/26/17 07/26/17 07/27/17 15:00 23:00 07:00 Intake Total 660 ml 450 ml 1270 ml Output Total 250 ml 500 ml 800 ml Balance 410 ml -50 ml 470 ml Exam Constitutional: non-verbal, no acute distress, Trach connected to vent. In a chronic vegetative state. Head: atraumatic, normocephalic Neck: trach in place, no blood appreciated at site of insertion Respiratory: coarse breath sounds, diminished at bases, no wheezing Cardiovascular: nl pulses, regular rate and rhythm Gastrointestinal: soft, nondistended, BS present Musculoskeletal: Deformity with contracture of extremities Results Result Diagram: 07/27/17 0611 07/27/17 0611 Results 24 hrs Laboratory Tests Test 07/27/17 06:11 White Blood Count 5.9 Red Blood Count 4.58 L Hemoglobin 12.2 L Hematocrit 38.8 L Mean Corpuscular Volume 84.7 Mean Corpuscular Hemoglobin 26.6 L Mean Corpuscular Hemoglobin Concent 31.4 L Red Cell Distribution Width 14.9 H Platelet Count 207 Mean Platelet Volume 12.4 H Neutrophils % 38.3 Lymphocytes % 35.8 Monocytes % 12.8 Eosinophils % 12.2 H Basophils % 0.7 Nucleated Red Blood Cells % 0.0 Neutrophils # 2.3 Lymphocytes # 2.1 Monocytes # 0.8 Eosinophils # 0.7 H Basophils # 0.0 Nucleated Red Blood Cells # 0.0 Sodium Level 141 Potassium Level 3.9 Chloride Level 106 Carbon Dioxide Level 27 Anion Gap 12 Blood Urea Nitrogen 11 Creatinine 0.49 L Glucose Level 105 Calcium Level 8.9 Phosphorus Level 4.9 Magnesium Level 1.9 Vancomycin Level Trough 10.9 Medications Medications Current Medications Ondansetron HCl (Zofran Inj) 4 mg Q6H PRN IV NAUSEA AND/OR VOMITING; Start 07/02 at 01:00 Acetaminophen (Tylenol Tab) 650 mg Q6H PRN GTB PAIN LEVEL 1-3 OR FEVER; Start 07/26/17 at 01:00 Heparin Sodium (Porcine) (Heparin (5000 Units/0.5 ml)) 5,000 unit Q12 SC Last administered on 07/27/17 08:13; Admin Dose 5,000 UNIT; Start 07/26/17 at 09: 00 Baclofen (Lioresal) 25 mg Q6 GTB Last administered on 07/27/17 05:17; Admin Dose 25 MG; Start 07/26/17 at 06:00 Clonidine HCl (Catapres-Tts 1 Patch) 1 patch Q7D TRANSDERM Last administered on 07/26/17 05:58; Admin Dose 1 PATCH; Start 07/26/17 at 01:00 Diazepam (Valium) 3 mg Q6 GTB Last administered on 07/27/17 05:16; Admin Dose 3 MG; Start 07/26/17 at 06:00 Glycopyrrolate (Robinul) 0.25 mg BID GTB Last administered on 07/27/17 08:12 ; Admin Dose 0.25 MG; Start 07/26/17 at 09:00 Levetiracetam (Keppra Liquid) 1,750 mg BID GTB Last administered on 07/27/17 08:11; Admin Dose 1,750 MG; Start 07/26/17 at 09:00 Neomycin/ Polymyxin/ Dexamethasone (Maxitrol Oph Oint) 1 applic QPM BOTH EYES Last administered on 07/26/17 21:10; Admin Dose 1 APPLIC; Start 07/26/17 at 21:00 Polyethylene Glycol (Miralax) 17 gm DAILY PRN PO CONSTIPATION; Start 07/26/17 at 01:00 Eye Lubricant (Artificial Tears Oph) 1 drop PRN BOTH EYES ; Start 07/26/17 at 01:00 Valproate Sodium (Depakene Liquid Cup) 250 mg TID GTB Last administered on 08:11; Admin Dose 250 MG; Start 07/26/17 at 09:00 Lansoprazole (Prevacid) 30 mg BID@06,18 GTB Last administered on 07/27/17 05: 17; Admin Dose 30 MG; Start 07/26/17 at 06:00 Fluticasone Propionate 1 spray 1 spray DAILY NASAL Last administered on 08:16; Admin Dose 1 SPRAY; Start 07/26/17 at 09:00 Levofloxacin/ Dextrose 100 ml @ 100 mls/hr DAILY IVPB Last administered on 10:20; Admin Dose 100 MLS/HR; Start 07/26/17 at 09:00 Cefepime HCl 50 ml @ 100 mls/hr Q12 IVPB Last administered on 07/27/17 10:20 ; Admin Dose 100 MLS/HR; Start 07/26/17 at 09:00 Vancomycin HCl/ Dextrose/Water (Vancocin/D5W) 150 ml @ 75 mls/hr Q8H IVPB Last administered on 07/27/17 08:05; Admin Dose 75 MLS/HR; Start 07/26/17 at 14:30 JIM NANCE MD Jul 27, 2017 10:37
--- NOTE | 2017-07-27 13:00 | CONS ---
Date/Time of Note Date/Time of Note DATE: 07/27/17 TIME: 12:55 Consult Date/Type/Reason Admit Date/Time Jul 25, 2017 at 23:40 Initial Consult Date 07/26/17 Type of Consultation: Pulm Ordering Provider: LIBRA GARCIA MD Subjective Pulmonary status remains stable. No events overnight. Objective Vital Signs Date Time Temp Pulse Resp B/P Pulse Ox O2 Delivery O2 Flow Rate FiO2 07/27/17 12:25 57 07/27/17 11:55 19 97 30 07/27/17 07:41 97.8 118/76 07/26/17 00:00 Mechanical Ventilator Intake and Output 07/26/17 07/26/17 07/27/17 15:00 23:00 07:00 Intake Total 660 ml 450 ml 1270 ml Output Total 250 ml 500 ml 800 ml Balance 410 ml -50 ml 470 ml Exam PHYSICAL EXAMINATION: GENERAL: Chronically ill-appearing gentleman, comfortable at rest. VITAL SIGNS: As above. NECK: Trach site clean and intact. CARDIAC: S1, S2, no added sounds or murmurs. CHEST: Diminished air entry bilaterally. ABDOMEN: Soft, nontender. No guarding, no rebound. EXTREMITIES: No cyanosis, clubbing or edema. NEUROLOGIC: Unable to assess. Results/Medications Result Diagram: 07/27/17 0611 07/27/17 0611 Results 24 hrs Laboratory Tests Test 07/27/17 06:11 White Blood Count 5.9 Red Blood Count 4.58 L Hemoglobin 12.2 L Hematocrit 38.8 L Mean Corpuscular Volume 84.7 Mean Corpuscular Hemoglobin 26.6 L Mean Corpuscular Hemoglobin Concent 31.4 L Red Cell Distribution Width 14.9 H Platelet Count 207 Mean Platelet Volume 12.4 H Neutrophils % 38.3 Lymphocytes % 35.8 Monocytes % 12.8 Eosinophils % 12.2 H Basophils % 0.7 Nucleated Red Blood Cells % 0.0 Neutrophils # 2.3 Lymphocytes # 2.1 Monocytes # 0.8 Eosinophils # 0.7 H Basophils # 0.0 Nucleated Red Blood Cells # 0.0 Sodium Level 141 Potassium Level 3.9 Chloride Level 106 Carbon Dioxide Level 27 Anion Gap 12 Blood Urea Nitrogen 11 Creatinine 0.49 L Glucose Level 105 Calcium Level 8.9 Phosphorus Level 4.9 Magnesium Level 1.9 Vancomycin Level Trough 10.9 Medications Current Medications Ondansetron HCl (Zofran Inj) 4 mg Q6H PRN IV NAUSEA AND/OR VOMITING; Start 07/02 at 01:00 Acetaminophen (Tylenol Tab) 650 mg Q6H PRN GTB PAIN LEVEL 1-3 OR FEVER; Start 07/26/17 at 01:00 Heparin Sodium (Porcine) (Heparin (5000 Units/0.5 ml)) 5,000 unit Q12 SC Last administered on 07/27/17 08:13; Admin Dose 5,000 UNIT; Start 07/26/17 at 09: 00 Baclofen (Lioresal) 25 mg Q6 GTB Last administered on 07/27/17 12:18; Admin Dose 25 MG; Start 07/26/17 at 06:00 Clonidine HCl (Catapres-Tts 1 Patch) 1 patch Q7D TRANSDERM Last administered on 07/26/17 05:58; Admin Dose 1 PATCH; Start 07/26/17 at 01:00 Diazepam (Valium) 3 mg Q6 GTB Last administered on 07/27/17 12:17; Admin Dose 3 MG; Start 07/26/17 at 06:00 Glycopyrrolate (Robinul) 0.25 mg BID GTB Last administered on 07/27/17 08:12 ; Admin Dose 0.25 MG; Start 07/26/17 at 09:00 Levetiracetam (Keppra Liquid) 1,750 mg BID GTB Last administered on 07/27/17 08:11; Admin Dose 1,750 MG; Start 07/26/17 at 09:00 Neomycin/ Polymyxin/ Dexamethasone (Maxitrol Oph Oint) 1 applic QPM BOTH EYES Last administered on 07/26/17 21:10; Admin Dose 1 APPLIC; Start 07/26/17 at 21:00 Polyethylene Glycol (Miralax) 17 gm DAILY PRN PO CONSTIPATION; Start 07/26/17 at 01:00 Eye Lubricant (Artificial Tears Oph) 1 drop PRN BOTH EYES ; Start 07/26/17 at 01:00 Valproate Sodium (Depakene Liquid Cup) 250 mg TID GTB Last administered on 12:17; Admin Dose 250 MG; Start 07/26/17 at 09:00 Lansoprazole (Prevacid) 30 mg BID@ GTB Last administered on 07/27/17 05: 17; Admin Dose 30 MG; Start 07/26/17 at 06:00 Fluticasone Propionate 1 spray 1 spray DAILY NASAL Last administered on 08:16; Admin Dose 1 SPRAY; Start 07/26/17 at 09:00 Levofloxacin/ Dextrose 100 ml @ 100 mls/hr DAILY IVPB Last administered on 10:20; Admin Dose 100 MLS/HR; Start 07/26/17 at 09:00 Cefepime HCl 50 ml @ 100 mls/hr Q12 IVPB Last administered on 07/27/17 10:20 ; Admin Dose 100 MLS/HR; Start 07/26/17 at 09:00 Vancomycin HCl/ Dextrose/Water (Vancocin/D5W) 150 ml @ 75 mls/hr Q8H IVPB Last administered on 07/27/17 08:05; Admin Dose 75 MLS/HR; Start 07/26/17 at 14:30 Assessment/Plan Chief Complaint/Hosp Course IMPRESSION: 1. Transient hypoxemia, likely secondary to mucous plugging. 2. Chronic encephalopathy. 3. Chronic vent-dependent respiratory failure. PLAN: 1. Continue vent support. The patient will continue on current pressure control vent settings. I had an extensive discussion with several pulmonary fellows from [facility] yesterday. We attempted to transfer the patient over for continuing care and ENT evaluation. Accepting hospital felt that patient was stable for outpatient follow-up with ENT. They have notified his ENT and pulmonary physician at [facility] to anticipate request for outpatient appointment next week. Case was discussed with patient's family this morning. I explained that they need to contact his ENT physician next week to arrange appointment. I also recommended that the facility should contact the family when there is a change in condition and if the patient requires transfer to acute care hospital he should be taken to the [facility] where he is well-known to his team. Problems: ARACELY AYALA MD, [facility] Jul 27, 2017 13:00
--- NOTE | 2017-07-27 13:40 | PDOCDIS ---
Discharge Instructions DIAGNOSIS Discharge Diagnosis 1. Acute hypercapnic respiratory failure on Vent 2. UTI 3. Failure to thrive 4. Chronic vegetative state 5. Epilepsy 6. Agitation CONDITION Patient Condition: Good HOME CARE INSTRUCTIONS: Special Diet: tube feeds FOLLOW UP/APPOINTMENTS Follow-up Plan 1. Continue current medications 2. Will need aggressive suctioning due to secretion production 3. Will need to follow up with ENT and [facility] as outpatient. Instructed mother to give offices a call to arrange for followups. Specialists all aware as well 4. Vent settings: PEEP 5, FIO2 30, R 14 JIM NANCE MD Jul 27, 2017 13:40
--- NOTE | 2017-07-27 17:23 | CONS ---
Date/Time of Note Date/Time of Note DATE: 07/27/17 TIME: 17:23 Assessment/Plan Assessment/Plan Chief Complaint/Hosp Course SUBJECTIVE: Patient is lying comfortably in bed. He is nonverbal, noncommunicative. No fevers. INDWELLINGS: The patient has trach, PEG, Cortes, PICC. ANTIMICROBIALS: Vanco Levaquin Cefepime DIAGNOSTICS: Chest x-ray on admission revealed no focal consolidation. PHYSICAL EXAMINATION: GENERAL: Chronically ill-appearing, debilitated young man who is in no distress. HEENT: Head is large in proportion to the body. NECK: Supple. CHEST: Rise is symmetrical. Breath sounds diminished at bases. HEART: S1, S2. ABDOMEN: Soft, bowel sounds present. EXTREMITIES: Wasted, contractures, without cyanosis. ASSESSMENT: 1. Acute on chronic resp failure 2. HCAP, poss aspiration. 3. S/p UTI 4. Persistent vegetative state. PLAN: Clinically stable. Dc Vanco and Levaquin, continue Cefepime, f/u pulmonary rec-s ?dc back to SNF. DW staff Problems: Consultation Date/Type/Reason Admit Date/Time Jul 25, 2017 at 23:40 Initial Consult Date 07/26/17 Type of Consultation: ID Referring Provider: LIBRA GARCIA MD Exam/Review of Systems Vital Signs Vitals Vital Signs Date Time Temp Pulse Resp B/P Pulse Ox O2 Delivery O2 Flow Rate FiO2 07/27/17 16:26 53 07/27/17 15:38 98.3 19 126/59 97 07/27/17 13:45 30 07/26/17 00:00 Mechanical Ventilator Intake and Output 07/26/17 07/26/17 07/27/17 14:59 22:59 06:59 Intake Total 620 ml 490 ml 1270 ml Output Total 250 ml 500 ml 800 ml Balance 370 ml -10 ml 470 ml Results Result Diagram: 07/27/17 0611 07/27/17 0611 Results 24 hrs Laboratory Tests Test 07/27/17 06:11 White Blood Count 5.9 Red Blood Count 4.58 L Hemoglobin 12.2 L Hematocrit 38.8 L Mean Corpuscular Volume 84.7 Mean Corpuscular Hemoglobin 26.6 L Mean Corpuscular Hemoglobin Concent 31.4 L Red Cell Distribution Width 14.9 H Platelet Count 207 Mean Platelet Volume 12.4 H Neutrophils % 38.3 Lymphocytes % 35.8 Monocytes % 12.8 Eosinophils % 12.2 H Basophils % 0.7 Nucleated Red Blood Cells % 0.0 Neutrophils # 2.3 Lymphocytes # 2.1 Monocytes # 0.8 Eosinophils # 0.7 H Basophils # 0.0 Nucleated Red Blood Cells # 0.0 Sodium Level 141 Potassium Level 3.9 Chloride Level 106 Carbon Dioxide Level 27 Anion Gap 12 Blood Urea Nitrogen 11 Creatinine 0.49 L Glucose Level 105 Calcium Level 8.9 Phosphorus Level 4.9 Magnesium Level 1.9 Vancomycin Level Trough 10.9 Medications Medications Current Medications Ondansetron HCl (Zofran Inj) 4 mg Q6H PRN IV NAUSEA AND/OR VOMITING; Start 07/02 at 01:00 Acetaminophen (Tylenol Tab) 650 mg Q6H PRN GTB PAIN LEVEL 1-3 OR FEVER; Start 07/26/17 at 01:00 Heparin Sodium (Porcine) (Heparin (5000 Units/0.5 ml)) 5,000 unit Q12 SC Last administered on 07/27/17 08:13; Admin Dose 5,000 UNIT; Start 07/26/17 at 09: 00 Baclofen (Lioresal) 25 mg Q6 GTB Last administered on 07/27/17 12:18; Admin Dose 25 MG; Start 07/26/17 at 06:00 Clonidine HCl (Catapres-Tts 1 Patch) 1 patch Q7D TRANSDERM Last administered on 07/26/17 05:58; Admin Dose 1 PATCH; Start 07/26/17 at 01:00 Diazepam (Valium) 3 mg Q6 GTB Last administered on 07/27/17 12:17; Admin Dose 3 MG; Start 07/26/17 at 06:00 Glycopyrrolate (Robinul) 0.25 mg BID GTB Last administered on 07/27/17 08:12 ; Admin Dose 0.25 MG; Start 07/26/17 at 09:00 Levetiracetam (Keppra Liquid) 1,750 mg BID GTB Last administered on 07/27/17 08:11; Admin Dose 1,750 MG; Start 07/26/17 at 09:00 Neomycin/ Polymyxin/ Dexamethasone (Maxitrol Oph Oint) 1 applic QPM BOTH EYES Last administered on 07/26/17 21:10; Admin Dose 1 APPLIC; Start 07/26/17 at 21:00 Polyethylene Glycol (Miralax) 17 gm DAILY PRN PO CONSTIPATION; Start 07/26/17 at 01:00 Eye Lubricant (Artificial Tears Oph) 1 drop PRN BOTH EYES ; Start 07/26/17 at 01:00 Valproate Sodium (Depakene Liquid Cup) 250 mg TID GTB Last administered on 12:17; Admin Dose 250 MG; Start 07/26/17 at 09:00 Lansoprazole (Prevacid) 30 mg BID@06,18 GTB Last administered on 07/27/17 05: 17; Admin Dose 30 MG; Start 07/26/17 at 06:00 Fluticasone Propionate 1 spray 1 spray DAILY NASAL Last administered on 08:16; Admin Dose 1 SPRAY; Start 07/26/17 at 09:00 Levofloxacin/ Dextrose 100 ml @ 100 mls/hr DAILY IVPB Last administered on 10:20; Admin Dose 100 MLS/HR; Start 07/26/17 at 09:00 Cefepime HCl 50 ml @ 100 mls/hr Q12 IVPB Last administered on 07/27/17 10:20 ; Admin Dose 100 MLS/HR; Start 07/26/17 at 09:00 Vancomycin HCl/ Dextrose/Water (Vancocin/D5W) 150 ml @ 75 mls/hr Q8H IVPB Last administered on 07/27/17 08:05; Admin Dose 75 MLS/HR; Start 07/26/17 at 14:30 JEIMY LYNCH NP Jul 27, 2017 17:23
--- NOTE | 2017-07-27 21:55 | DS ---
Date/Time of Note Date/Time of Note DATE: 07/27/17 TIME: 21:49 Discharge Summary Admission/Discharge Info Admit Date/Time Jul 25, 2017 at 23:40 Discharge Date/Time Jul 27, 2017 at 18:15 Discharge Diagnosis 1. Acute hypercapnic respiratory failure on Vent 2. UTI 3. Failure to thrive 4. Chronic vegetative state 5. Epilepsy 6. Agitation Patient Condition: Good Consults Pulmonology Infectious Disease Hx of Present Illness This is a 21-year-old male with history of chronic encephalopathy, chronic trach /vent dependent respiratory failure who was sent from a care home facility for hypoxia. Reportedly, when EMS arrived O2 sat was in 80s. His tracheostomy was suctioned in the ER and after that oxygen saturation was 100%. He is known to have significant amount of secretions quite for a long time. He was then discharged back to SNF, but was sent right back, again for hypoxia with oxygen saturation in the low 80s. His initial chest x-ray showed Patchy bilateral perihilar and lower lobe infiltrates. On the second ER visit, CT pulmonary angiogram was done which showed Diffuse interstitial infiltrates with more focal consolidation within the superior segment of the right lower lobe with extensive diffuse nodular densities scattered throughout the lungs, possibly from aspiration pneumonia. He has been afebrile with normal white count. Also note, the patient was just admitted here and in fact he was discharged 2 days ago after he was initially admitted for tracheostomy malfunction. His trach tube was replaced in the ER and after that he did have bleeding through his trach which had resolved during hospitalization. He was also treated for UTI. . His chest x-ray is unchanged compared with prior. He is afebrile. His blood gas shows mild hypercapnia, but is otherwise unremarkable. Vent was adjusted accordingly. The patient . He likely requires increased suctioning at the custodial. The mother expressed concern about the size of the patient's trach. I spoke with the recreation aide, Dr. Garcia, who saw the patient while he was hospitalized. Dr. Garcia states that the patient is stable to follow- up at [facility] with ENT for resizing of trach as an outpatient, and that there was no problem related to the size of the trach such as air leak. Patient's trach was replaced per pulmonology and was placed on pressure control ventilation per recommendations from care home facility to accept. Patient also had UTI that grew Providencia stuartii and pseudomonas aeruginosa and subsequently placed patient on infectious disease amikacin for a total of 7 days. Patient's first dose of amikacin was July 21 and will need 7 days from that date. Patient's respiratory status improved and patient's hypotension also resolved. Patient was placed back on home medications and is stable to transfer back to care home facility. Patient has considerable secretions, however upon speaking with care home facility MD and mother at bedside it is quite normal for patient as well as his increased drainage on his GI site PEG. Information is obtained from the mother who was at the bedside and from the ER physician and chart review. When he presented to the ER, his trach tube was replaced with normalization of oxygen saturation. He has however been bleeding through his trach since his tracheostomy tube was replaced. He had about a 200 cc of blood that was suctioned over a period of 7 hours. According to his mother, he fell down when he was 4 years old and since then has been in a chronic vegetative state and has been trach/vent dependent. Chest x-ray showed left lower lung atelectasis versus airspace disease. Hospital Course Patient is a 21-year-old -[place] male with a past medical history of chronic vegetative state since the age of 4 secondary to traumatic fall who also has a past medical history of epilepsy and mood disorder and acute hypercapnic respiratory failure on chronic failure on the vent who originally presented for trach malfunction and acute hypercapnic respiratory failure. Patient was evaluated by pulmonology and an infectious disease as well. Patient 's trach was replaced per pulmonology and was placed on pressure control ventilation per recommendations from care home facility to accept. Patient also had UTI that grew Providencia stuartii and pseudomonas aeruginosa and subsequently placed patient on infectious disease amikacin for a total of 7 days. Patient's respiratory status improved and patient's hypotension also resolved. Patient was placed back on home medications and was stable to transfer back to care home facility. Patient has considerable secretions , however upon speaking with care home facility MD and mother at bedside it is quite normal for patient as well as his increased drainage on his GI site PEG. (readmission 07/26/17) Patient was sent back from SNF due to hypoxia, cleared up in [facility] ED with suctioning. Patient is baseline. Dr. Garcia, Pulmonology, spoke with ENT and Pulmonology [place] at [facility] and felt as if patient did not have any acute issues at this time [facility] transfer. They recommended patient be discharged back to [facility] and follow up with his ENT and Veterinary Medicine Doctor as outpatient as they are expecting a call. After discussion with pulmonology, patient was afebrile with no elevated WBC, and thus not requiring further antibiotics. Patient was discharged back to SNF in stable condition. Signout was given to accepting physician as well at [facility]. Home Meds Reported Medications Levetiracetam* (Keppra*) 500 Mg/5 Ml Solution, 1750 MG GTB BID, BOTTLE 07/25/17 Neomycin/Polymyxin/Dexameth* (Maxitrol*) 3.5 Gm Oint, 1 APPLIC BOTH EYES QPM, EA 07/25/17 Ergocalciferol (Vitamin D2) (VITAMIN D2) 2,000 Unit Tablet, 2000 UNIT GTB DAILY , TAB 07/15/17 Clonidine Patch (CATAPRES PATCH) 0.1 Mg/24 Hr Patch, 1 PATCH TD Q7D, #4 PATCH.WK 07/15/17 Baclofen* (Baclofen*) 10 Mg Tablet, 25 MG GTB Q6, TAB 07/15/17 Erythromycin (Erythromycin) 500 Mg Tabec, 120 MG GTB Q6, TAB 07/15/17 Mineral Oil/Lanolin Oil (Lacri-Lube) 3.5 Gm Oint, 1 APPLIC BOTH EYES Q4H WHILE AWAKE, #1 EA 07/15/17 Mometasone Furoate* (Nasonex*) 50 Mcg/[place] - 17 Gm [place].pump, 1 SPRAY NASAL DAILY, #1 BOTTLE TO EACH NOSTRIL 07/15/17 Diazepam* (Diazepam*) 2 Mg Tablet, 3 MG GTB Q6, TAB 07/15/17 Polyethylene Glycol* (Miralax*) 17 Gm Powd.pack, 17 GM PO DAILY Y for CONSTIPATION, #30 PACKET 07/15/17 Polyvinyl Alcohol (Tears Again) 15 Ml Drops, 1 DRP BOTH EYES PRN, BOTTLE 07/15/17 Amino Acids/Protein Hydrolys (PRO-STAT LIQUID) 30 Ml Liquid.pkt, 30 ML GTB DAILY 07/15/17 Glycopyrrolate* (Robinul*) 1 Mg Tab, 250 MCG GTB BID, TAB 07/15/17 Valproic Acid* (Valproic Acid* Liq) 250 Mg/5 Ml Syrup, 250 MG GTB TID, ML 07/15/17 Folic Acid/Mv,Fe,Min (Centrum Chewable Tablet) 1 Each Tab.chew, 1 EACH GTB DAILY , TAB.CHEW 07/15/17 Esomeprazole Mag Trihydrate (Nexium) 20 Mg Capsule.dr, 20 MG GTB BID, #30 CAP 07/15/17 Discontinued Reported Medications Montelukast Sodium* (Singulair*) 10 Mg Tablet, 10 MG GTB QHS, #30 TAB 07/15/17 Sodium Chloride* (Nacl*) 1 Gm Tab, 60 MEQ PO QID, TAB 07/15/17 Levetiracetam* (Keppra* (Ped)) 100 Mg/Ml Liq, 1750 MG GTB BID for 30 Days, BOTTLE 07/15/17 Kobe/Polymyx B Sulf/Dexameth (Maxitrol Eye Ointment) 3.5 Gm Oint..gm., 1 INCH BOTH EYES QPM 07/15/17 Discontinued Scripts [Amikacin Iv Per Pharmacy] 1 EA EACH No Conflict Check, 0 EA XX NOTE for 5 Days Prov:EMELY PARK 07/23/17 Follow-up Plan 1. Continue current medications 2. Will need aggressive suctioning due to secretion production 3. Will need to follow up with ENT and Veterinary Medicine Doctor as outpatient. Instructed mother to give offices a call to arrange for followups. Specialists all aware as well 4. Vent settings: PEEP 5, FIO2 30, R 14 Primary Care Provider Not On Staff Doctor Time spent on discharge: > 30 minutes Pending Labs Laboratory Tests Test 07/27/17 06:11 White Blood Count 5.910^3/ul (4.8-10.8) Red Blood Count 4.5810^6/ul (4.70-6.10) Hemoglobin 12.2g/dl (14.0-18.0) Hematocrit 38.8% (42.0-52.0) Mean Corpuscular Volume 84.7fl (72.0-104.0) Mean Corpuscular Hemoglobin 26.6pg (29.0-33.0) Mean Corpuscular Hemoglobin Concent 31.4g/dl (32.0-37.0) Red Cell Distribution Width 14.9% (11.5-14.5) Platelet Count 83186^3/UL (140-415) Mean Platelet Volume 12.4fl (7.4-10.4) Neutrophils % 38.3% (30.0-74.0) Lymphocytes % 35.8% (18.0-55.0) Monocytes % 12.8% (0.0-13.0) Eosinophils % 12.2% (0.0-7.0) Basophils % 0.7% (0.0-2.0) Nucleated Red Blood Cells % 0.0/100WBC (0.0-0.0) Neutrophils # 2.310^3/ul (1.6-7.5) Lymphocytes # 2.110^3/ul (0.8-2.9) Monocytes # 0.810^3/ul (0.3-0.9) Eosinophils # 0.710^3/ul (0.0-0.5) Basophils # 0.010^3/ul (0.0-0.1) Nucleated Red Blood Cells # 0.010^3/ul (0.0-0.0) Sodium Level 141mmol/L (135-144) Potassium Level 3.9mmol/L (3.5-5.1) Chloride Level 106mmol/L (97-110) Carbon Dioxide Level 27mmol/L (21-31) Anion Gap 12 (8-16) Blood Urea Nitrogen 11mg/dl (7-20) Creatinine 0.49mg/dl (0.61-1.24) Glucose Level 105mg/dl (70-220) Calcium Level 8.9mg/dl (8.4-10.2) Phosphorus Level 4.9mg/dl (2.5-4.9) Magnesium Level 1.9mg/dl (1.7-2.5) Vancomycin Level Trough 10.9ug/ml (10.0-20.0) JIM NANCE MD Jul 27, 2017 21:55
== END 2017-07-27 18:15 | DRG 208 ==
LOC: E/R 17:25 → TEL 23:40
PROVIDERS: ADMIT Internal Medicine; ATTEND Internal Medicine
PROC: 5A1935Z Respiratory Ventilation, Less than 24 Consecutive Hours (ICD-10-PCS; principal; 2017-07-25)
DX: J96.22 Acute and chronic respiratory failure with hypercapnia (principal); J69.0 Pneumonitis due to inhalation of food and vomit; Z99.11 Dependence on respirator [ventilator] status; G93.40 Encephalopathy, unspecified; R40.3 Persistent vegetative state; Z93.0 Tracheostomy status; N39.0 Urinary tract infection, site not specified; R62.7 Adult failure to thrive; G40.909 Epilepsy, unspecified, not intractable, without status epilepticus; Z87.820 Personal history of traumatic brain injury; Z93.1 Gastrostomy status
CPT/HCPCS: 36600; 71275; 80048; 80053; 80202; 82803; 83605; 83735; 83880; 84100; 85025; 87040; 87070; 93005; 94002; 94003; 96374; 96375; J0692; J1644; J1953; J1956; J2060; J2270; J3370; J7030; J7040; J7050; Q9967